=== PATIENT | female | born 1930 | race Caucasian/White ===

== ENCOUNTER 2016-07-06 11:38 | Inpatient (IN) | payer MEDICARE ==
[2016-07-06] VITALS (16 sets, daily range): BP systolic 101–136; BP diastolic 54–88; PULSE 69–90; RESP 14–20; TEMP 97.4–98; O2SAT 93–100
[~2016-07-06] VITALS: Ht 167.6 cm; Wt 39.2 kg
--- NOTE | 2016-07-06 12:07 | PD ---
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 The patient's son is at bedside and helps to provide the history. The patient has had no medical care throughout her lifetime due to her mormonism beliefs. The patient's son states that she has not walked for approximately 2 years secondary to pain in this leg. Patient denies recent history of fever, chills, nausea, vomiting, abdominal pain or dysuria. She has had Pentecostal chemical laboratory scientist nurses who clean the wound daily for approximately 2 years. No medical treatment has been provided. Patient states that she ate a full breakfast around 8:00 this morning. PFSH Past Medical History Hx Anticoagulant Therapy: No Cardiovascular Problems: No Chemotherapy: No Cerebrovascular Accident: No Diabetes: No Diminished Hearing: No Respiratory: No Tetanus Vaccination: Unknown Influenza Vaccination: No Past Surgical History Surgical History: No Previous Surgery AICD: No Hysterectomy: No Joint Replacement: No Pacemaker: No Social History Alcohol Use: No Tobacco Use: No Substance Use: No Allergies-Medications (Allergen,Severity, Reaction): Coded Allergies: No Known Allergies (Unverified , 07/06/16) Reported Meds & Prescriptions Reported Meds & Active Scripts Active No Active Prescriptions or Reported Medications Review of Systems Except as stated in HPI: all other systems reviewed are Neg Physical Exam Narrative GENERAL: Well-nourished, well-developed elderly white female in no acute distress. SKIN: Warm and dry. There is a 10 cm x 14 cm wound on the medial aspect of the right ankle with purulent drainage and obvious osteomyelitis. There is a section of tibia approximately 10 cm that is completely eroded. There is a foul smell to the wound. HEAD: Normocephalic. EYES: No scleral icterus. No injection or drainage. NECK: Supple, trachea midline. No JVD or lymphadenopathy. CARDIOVASCULAR: Regular rate and rhythm without murmurs, gallops, or rubs. 2+ DP and radial pulses bilaterally. RESPIRATORY: Breath sounds clear and equal bilaterally. No accessory muscle use. GASTROINTESTINAL: Abdomen soft, non-tender, nondistended. Active bowel sounds. MUSCULOSKELETAL: No cyanosis, or edema. FOCUSED RIGHT LOWER EXTREMITY EXAM: A 10 x 14 cm wound on the medial aspect of the right ankle. Sensation is intact to light touch distally. Cap refill less than 2 seconds. Range of motion testing deferred secondary to pain. BACK: Nontender without obvious deformity. No CVA tenderness. Data Data Last Documented VS Vital Signs Date Time Temp Pulse Resp B/P Pulse Ox O2 Delivery O2 Flow Rate FiO2 07/06/16 14:00 74 16 103/54 100 Room Air 07/06/16 11:42 97.4 Orders Complete Blood Count With Diff (07/06/16 12:21) Blood Culture (07/06/16 12:21) Wound Culture And Gram Stain (07/06/16 12:21) Iv Access Insert/Monitor (07/06/16 12:21) Ketorolac Inj (Toradol Inj) (07/06/16 12:30) Tetanus/Diphtheria Tox Adult (Tetanus/Di (07/06/16 12:30) Tibia/Fibula (Ap/Lat) (07/06/16 12:21) Lactic Acid (07/06/16 12:21) Comprehensive Metabolic Panel (07/06/16 12:21) Piperacil-Tazo 4.5 Gm Premix (Zosyn 4.5 (07/06/16 12:30) Vancomycin Inj (Vancomycin Inj) (07/06/16 12:30) Westergren Sedimentation Rate (07/06/16 12:21) C-Reactive Protein (Crp) (07/06/16 12:21) Type And Screen (07/06/16 13:32) Red Blood Cells (Rbc) (07/06/16 13:32) Blood Product Administration .UPON TRANSFUSION (07/06/16 13:32) Sodium Chlor 0.9% 250 Ml Inj (Ns 250 Ml (07/06/16 13:45) Diphenhydramine Inj (Benadryl Inj) (07/06/16 13:45) Acetaminophen (Tylenol) (07/06/16 13:45) Electrocardiogram (07/06/16 13:47) Admit Order (Ed Use Only) (07/06/16 14:35) Labs Laboratory Tests Test 07/06/16 07/06/16 07/06/16 12:30 12:35 13:45 White Blood Count 6.8 TH/MM3 Red Blood Count 2.68 MIL/MM3 Hemoglobin 5.1 GM/DL Hematocrit 16.5 % Mean Corpuscular Volume 61.3 FL Mean Corpuscular Hemoglobin 18.8 PG Mean Corpuscular Hemoglobin 30.7 % Concent Red Cell Distribution Width 17.6 % Platelet Count 500 TH/MM3 Mean Platelet Volume 6.5 FL Neutrophils (%) (Auto) 70.6 % Lymphocytes (%) (Auto) 19.6 % Monocytes (%) (Auto) 8.0 % Eosinophils (%) (Auto) 1.1 % Basophils (%) (Auto) 0.7 % Neutrophils # (Auto) 4.8 TH/MM3 Lymphocytes # (Auto) 1.3 TH/MM3 Monocytes # (Auto) 0.5 TH/MM3 Eosinophils # (Auto) 0.1 TH/MM3 Basophils # (Auto) 0.0 TH/MM3 CBC Comment AUTO DIFF Differential Comment AUTO DIFF CONFIRMED Platelet Estimate HIGH Platelet Morphology Comment NORMAL Ovalocytes 1+ Keratocytes OCC Erythrocyte Sedimentation Rate 93 mm/hr Sodium Level 137 MEQ/L Potassium Level 4.5 MEQ/L Chloride Level 106 MEQ/L Carbon Dioxide Level 22.8 MEQ/L Anion Gap 8 MEQ/L Blood Urea Nitrogen 18 MG/DL Creatinine 0.57 MG/DL Estimat Glomerular Filtration 101 ML/MIN Rate Random Glucose 86 MG/DL Calcium Level 8.8 MG/DL Total Bilirubin 0.3 MG/DL Aspartate Amino Transf 9 U/L (AST/SGOT) Alanine Aminotransferase 9 U/L (ALT/SGPT) Alkaline Phosphatase 78 U/L C-Reactive Protein 5.60 MG/DL Total Protein 5.9 GM/DL Albumin 2.1 GM/DL Lactic Acid Level 1.1 mmol/L Blood Type A POSITIVE Antibody Screen NEGATIVE Crossmatch Leukocyte-Reduced Red Blood Cells Blood Bank Comment [facility] Medical Decision Making Medical Screen Exam Complete: Yes Emergency Medical Condition: Yes Differential Diagnosis Cellulitis versus osteomyelitis versus sepsis versus other Narrative Course 85-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 The patient's son is at bedside and helps to provide the history. The patient has had no medical care throughout her lifetime due to her mormonism beliefs. The patient's son states that she has not walked for approximately 2 years secondary to pain in this leg. Patient denies recent history of fever, chills, nausea, vomiting, abdominal pain or dysuria. I discussed the need for intervention to stop the spread of this infection with the patient and her family. They are not opposed to treatment at this time. They state that they will make decisions about the patient's care as they go. Vitals reviewed. Physical exam reveals a frail elderly white female in no acute distress. The chest is clear to auscultation bilaterally. The abdomen is soft and nontender. There is a 14 cm x 10 cm open wound on the medial aspect of the right ankle. There is a 10 cm portion of the tibia that has eroded away. 2+ DP pulse. Sensation intact to light touch distally. Range of motion testing deferred secondary to pain. IV was established. Blood cultures and wound cultures were obtained and are pending at this time. IV vancomycin and Zosyn were initiated. Patient was administered a dose of Toradol and her tetanus immunization was updated. CBC: WBC 6.8. Hemoglobin 5.1. CMP is unremarkable. ESR 93. CRP 5.6. Lactic acid 1.1. X-ray: Open wound with obvious osteomyelitis. Underlying squamous cell carcinoma cannot be excluded. EKG: Rate 79, sinus rhythm. [place] interval 149 ms, QRS 92 ms, QTC 399 ms. No ischemic changes. Reviewed by Dr. Borden Patient was found to be anemic, type and cross ordered. 2 units of packed red cells are ordered and pending. Benadryl and Tylenol ordered to accompany administration of blood products. I spoke with the patient and her son regarding the plan of care. They are amenable to admission to the hospital, evaluation by the medical staff and orthopedic or general surgery consultation. Call placed to the residents, who agreed to accept this patient to the medical service and will consult the appropriate surgical provider. Please see medicine and surgery notes for disposition. 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
[2016-07-06] MEDS ORDERED: KETOROLAC TROMETHAMINE 30 MG/ML (IVP) VIAL IVP ONE (12:30)
[2016-07-06] MEDS ORDERED: VANCOMYCIN INJ 1,000 MG in SODIUM CHLOR 0.9% 250 ML INJ 250 ML IV ONE (12:30)
[2016-07-06] MEDS ORDERED: PIPERACIL-TAZO 4.5 GM PREMIX 100 ML IV ONE (12:30)
[2016-07-06] MEDS ORDERED: TETANUS/DIPHTHERIA TOXOID ADULT 0.5 ML VIAL IM ONE (12:30)
--- NOTE | 2016-07-06 12:37 | PD ---
Physical Exam Date Seen by Provider: Jul 06, 2016 Narrative Patient presents with a several year long history of a wound to the right lower extremity. 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 Therefore, she has not sought care for this until today. She is willing to undergo medical treatment at this time. The wound on her right lower extremity is at least down to the bone. It looks like a large portion of her tibia is missing. Data Data Last Documented VS Vital Signs Date Time Temp Pulse Resp B/P Pulse Ox O2 Delivery O2 Flow Rate FiO2 07/06/16 11:59 90 14 07/06/16 11:59 127/68 100 Room Air 07/06/16 11:42 97.4 Orders Complete Blood Count With Diff (07/06/16 12:21) Blood Culture (07/06/16 12:21) Wound Culture And Gram Stain (07/06/16 12:21) Iv Access Insert/Monitor (07/06/16 12:21) Ketorolac Inj (Toradol Inj) (07/06/16 12:30) Tetanus/Diphtheria Tox Adult (Tetanus/Di (07/06/16 12:30) Ankle, Limited (Ap&Lat) (07/06/16 12:21) Tibia/Fibula (Ap/Lat) (07/06/16 12:21) Lactic Acid (07/06/16 12:21) Comprehensive Metabolic Panel (07/06/16 12:21) Piperacil-Tazo 4.5 Gm Premix (Zosyn 4.5 (07/06/16 12:30) Vancomycin Inj (Vancomycin Inj) (07/06/16 12:30) Westergren Sedimentation Rate (07/06/16 12:21) C-Reactive Protein (Crp) (07/06/16 12:21) MDM Supervised Visit with JOSE CARLOS: Yes Scripts No Active Prescriptions or Reported Meds Rubina Borden MD Jul 06, 2016 12:37
[2016-07-06 13:26] LABS: AUTOMATED NEUTROPHIL # 4.8 TH/MM3 (1.8-7.7); BASOPHIL % 0.7 % (0.0-2.0); EOSINOPHIL # 0.1 TH/MM3 (0-0.4); EOSINOPHIL % 1.1 % (0.0-4.0); LYMPH % 19.6 % (9.0-44.0); LYMPHOCYTE # 1.3 TH/MM3 (1.0-4.8); MEAN CELL VOLUME 61.3 FL (80.0-100.0); MEAN CORPUSCULAR HEMOGLOBIN 18.8 PG (27.0-34.0); MEAN CORPUSCULAR HGB CONC 30.7 % (32.0-36.0); NEUT % 70.6 % (16.0-70.0); PLATELET COUNT 500 TH/MM3 (150-450); RED BLOOD COUNT 2.68 MIL/MM3 (4.00-5.30); RED CELL DISTRIBUTION WIDTH 17.6 % (11.6-17.2); WHITE BLOOD COUNT 6.8 TH/MM3 (4.0-11.0)
[2016-07-06 13:28] LABS: HEMO FLAGS AUTO DIFF
[2016-07-06 13:32] LABS: HEMATOCRIT 16.5 % (35.0-46.0)
[2016-07-06 13:34] LABS: ANION GAP 8 MEQ/L (5-15); AST (GOT) 9 U/L (15-37); BICARBONATE 22.8 MEQ/L (21.0-32.0); BLOOD UREA NITROGEN 18 MG/DL (7-18); CHLORIDE 106 MEQ/L (98-107); GLOMERULAR FILTRATION RATE 101 ML/MIN (>89); POTASSIUM 4.5 MEQ/L (3.5-5.1); SODIUM (NA) 137 MEQ/L (136-145)
[2016-07-06 13:37] LABS: ALKALINE PHOSPHATASE 78 U/L (45-117); ALT (GPT) 9 U/L (10-53); TOTAL BILIRUBIN ADULT 0.3 MG/DL (0.2-1.0)
--- NOTE | 2016-07-06 13:38 | RADRPT ---
EXAM DATE/TIME: 07/06/2016 12:50 [facility] COMPARISON: No previous studies available for comparison. INDICATIONS : Evaluate for cellulitis MEDICAL HISTORY : None. SURGICAL HISTORY : None. ENCOUNTER: Initial ACUITY: >1 year PAIN SCORE: 10/10 LOCATION: Right fibula FINDINGS: There is an open wound over the distal tibia with bony destruction and periosteal reaction all consis tent with osteomyelitis. CONCLUSION: Open wound with evidence for osteomyelitis. Underlying squamous cell carcinoma cannot be entirely ex cluded. Jose Duvall MD FACR on July 06, 2016 at 13:35 Board Certified Radiologist. This report was verified electronically.
[2016-07-06] MEDS ORDERED: diphenhydrAMINE HCL 50 MG/ML VIAL IV ONE (13:45)
[2016-07-06] MEDS ORDERED: ACETAMINOPHEN 325 MG TAB PO PRN ×2 (13:45→21:15)
[2016-07-06] MEDS ORDERED: SODIUM CHLOR 0.9% 250 ML INJ 250 ML IV ONE ×2 (13:45→16:15)
[2016-07-06 14:05] LABS: KERATOCYTES OCC (NORMAL); OVALOCYTES 1+ (NORMAL); PLATELET ESTIMATE SMEAR HIGH (NORMAL); PLATELET MORPHOLOGY NORMAL (NORMAL); SCAN/DIFF AUTO DIFF CONFIRMED
--- NOTE | 2016-07-06 14:57 | HHI.HP ---
HPI Service Family Medicine Primary Care Physician No Primary Care Physician Admission Diagnosis osteomyelitis, anemia Diagnoses: International Travel<30 Days: No Contact w/Intl Traveler<30days: No Known Affected Area: No History of Present Illness History obtained from son and patient. Patient is a 85-year-old female who presented here today for right lower extremity lesion. 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 The right lower extremity lesion has been present for the last 2-3 years and has progressively worsened during this time. The wound causes significant pain which caused patient to be wheelchair-bound for the last 1.5 years. The care provided by the Sikhism postdoctoral scientist nurses has now been exhausted and patient was recently evaluated by a home hospice nurse who recommended that patient come in to the hospital immediately. Beyond the pain, patient denies chest pain, shortness of breath, dizziness, fever/chills, abdominal pain, nausea/vomiting, hematochezia, melena. At this time, patient is open to medical therapies. (Xenia Goldberg MD R2) Review of Systems Constitutional: DENIES: Chills, Change in appetite Ears, nose, mouth, throat: DENIES: Hoarseness, Running Nose Respiratory: DENIES: Cough, Shortness of breath Cardiovascular: DENIES: Chest pain, Palpitations, Syncope, Lower Extremity Edema Gastrointestinal: DENIES: Abdominal pain, Black stools, Bloody stools, Diarrhea , Nausea, Vomiting Genitourinary: DENIES: Hematuria, Dysuria (Xenia Goldberg MD R2) Past Family Social History Past Medical History None as patient did not seek medical care through conventional services. Past Surgical History ORIF of right wrist Reported Medications None (Xenia Goldberg MD R2) Allergies: Coded Allergies: No Known Allergies (Unverified , 07/06/16) Family History 1 sister with a history of Alzheimer's dementia and possible facial osteomyelitis History is otherwise unknown Social History Lives with and Sikhism postdoctoral scientist nurse that come by to provide social care. Smoking: None Alcohol: None Illicit: None (Xenia Goldberg MD R2) Physical Exam Vital Signs Vital Signs Date Time Temp Pulse Resp B/P Pulse Ox O2 Delivery O2 Flow Rate FiO2 07/06/16 14:00 74 16 103/54 100 Room Air 07/06/16 13:00 78 16 114/58 99 Room Air 07/06/16 11:59 90 14 07/06/16 11:59 90 14 127/68 100 Room Air 07/06/16 11:42 97.4 90 16 120/62 99 Room Air Physical Exam GENERAL: This is a thin-nourished, well-developed patient, in no apparent distress. EYES: Pupils equal round and reactive. Extraocular motions intact. No scleral icterus. No injection or drainage. ENT: Nose without bleeding, purulent drainage. Throat without erythema, tonsillar hypertrophy or exudate. Uvula midline. Airway patent. NECK: Trachea midline. Supple, nontender, no meningeal signs. CARDIOVASCULAR: Regular rate and rhythm without murmurs, gallops, or rubs. RESPIRATORY: Clear to auscultation. Breath sounds equal bilaterally. No wheezes , rales, or rhonchi. GASTROINTESTINAL: Abdomen soft, non-tender, nondistended. No hepato-splenomegaly , or palpable masses. No guarding. MUSCULOSKELETAL: * Right tibia with extensive purulent and greenish drainage, foul odor, erythematous border. 2+ pitting edema on foot. 14 cm x 10 cm open wound. NEUROLOGICAL: Awake and alert. Normal speech. Laboratory Laboratory Tests Test 07/06/16 07/06/16 07/06/16 12:30 12:35 13:45 White Blood Count 6.8 Red Blood Count 2.68 Hemoglobin 5.1 Hematocrit 16.5 Mean Corpuscular Volume 61.3 Mean Corpuscular Hemoglobin 18.8 Mean Corpuscular Hemoglobin 30.7 Concent Red Cell Distribution Width 17.6 Platelet Count 500 Mean Platelet Volume 6.5 Neutrophils (%) (Auto) 70.6 Lymphocytes (%) (Auto) 19.6 Monocytes (%) (Auto) 8.0 Eosinophils (%) (Auto) 1.1 Basophils (%) (Auto) 0.7 Neutrophils # (Auto) 4.8 Lymphocytes # (Auto) 1.3 Monocytes # (Auto) 0.5 Eosinophils # (Auto) 0.1 Basophils # (Auto) 0.0 CBC Comment AUTO DIFF Differential Comment AUTO DIFF CONFIRMED Platelet Estimate HIGH Platelet Morphology Comment NORMAL Ovalocytes 1+ Keratocytes OCC Erythrocyte Sedimentation Rate 93 Sodium Level 137 Potassium Level 4.5 Chloride Level 106 Carbon Dioxide Level 22.8 Anion Gap 8 Blood Urea Nitrogen 18 Creatinine 0.57 Estimat Glomerular Filtration 101 Rate Random Glucose 86 Calcium Level 8.8 Total Bilirubin 0.3 Aspartate Amino Transf 9 (AST/SGOT) Alanine Aminotransferase 9 (ALT/SGPT) Alkaline Phosphatase 78 C-Reactive Protein 5.60 Total Protein 5.9 Albumin 2.1 Lactic Acid Level 1.1 Blood Type A POSITIVE Antibody Screen NEGATIVE Crossmatch Leukocyte-Reduced Red Blood Cells Blood Bank Comment Date/Time Procedure Status Source Growth 07/06/16 12:35 Aerobic Blood Culture Received Blood Peripheral Pending 07/06/16 12:35 Anaerobic Blood Culture Received Blood Peripheral Pending 07/06/16 12:30 Gram Stain Received Wound Ankle Pending 07/06/16 12:30 Wound Culture Received Wound Ankle Pending (Xenia Goldberg MD R2) Result Diagram: 07/06/16 1230 07/06/16 1230 Imaging Last Impressions Tibia/Fibula X-Ray 07/06/16 1221 Signed Impressions: Service Date/Time: Wednesday, July 06, 2016 12:50 - CONCLUSION: Open wound with evidence for osteomyelitis. Underlying squamous cell carcinoma cannot be entirely excluded. Jose Duvall MD FACR (Xenia Goldberg MD R2) Assessment and Plan Assessment and Plan 85-year-old female admitted for right tibial osteomyelitis. Code Status DNR Discussed Condition With Dr. Klein and Dr. Warren (Xenia Goldberg MD R2) Attending Attestation The patient has been seen and examined. The chart and all resident notes have been reviewed. I agree that inpatient care is appropriate and that a two midnight stay is expected for the reasons documented in the resident history and physical. I have discussed this with the resident and certify the resident s order for inpatient admission. (Rubina Klein MD) Problem List: (1) Osteomyelitis of right tibia Status: Chronic Plan: Progressively worsening osteomyelitis over the right distal tibia leading to inability to ambulate for the last 1.5 years. Prior treatment has not been seeking due to roman catholic beliefs. (The medical therapies at this time. Physical exam is remarkable for extensive glucoses of surrounding tissue and bone with purulent discharge/drainage. No leukocytosis present. ESR is elevated at 94 -X-ray tibia/fibula: significant for osteomyelitis and possible underlying squamous cell carcinoma. * Evidence of squamous cell carcinoma is not surprising due to the long history of chronic inflammation and infection * Will discuss further treatment after surgical treatment by ortho -Wound and blood culture pending -Leg MRI ordered -No signs of sepsis or bacteremia present -Blood cultures pending Ortho consulted: Appreciate recommendations Medications: * Vancomycin (07/06- * Zosyn 3.375 q6 (07/06- * Tylenol and [place] for pain (will use extreme caution with medications as she has no tolerance) (2) Anemia Status: Acute Plan: Found to have anemia with an H&H of 5.1/16.5 on admission. No history of melena/hematochezia. Etiology may be due to chronic osteomyelitis of right tibia. However etiology may be due to GI versus chronic infection. -Transfuse 2 units * Post transfusion H&H ordered -Iron studies significant for low iron, TIBC, % saturation. Additionally ferritin is low at 28 -Hemoccult ordered -Monitor I&Os Medications: * Iron 325 BID (after Hemoccult has been obtained) * Vitamin C 500 mg daily * Try to avoid NSAIDs until Hemoccult results (3) Nutrition, metabolism, and development symptoms Status: Acute Plan: Diet: Regular, nothing by mouth after midnight Electrolytes: Unremarkable Fluids: NS at 42 DVT prophylaxis: SCDs due to possible upcoming surgery GI prophylaxis: Not indicated (Xenia Goldberg MD R2) Physician Certification 2 Midnight Certification Type: Admission for Inpatient Services Order for Inpatient Services The services are ordered in accordance with Medicare regulations or non- Medicare payer requirements, as applicable. In the case of services not specified as inpatient-only, they are appropriately provided as inpatient services in accordance with the 2-midnight benchmark. Estimated LOS (days): 3 days is the estimated time the patient will need to remain in the hospital, assuming treatment plan goals are met and no additional complications. 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
[2016-07-06] MEDS ORDERED: ONDANSETRON HCL 4 MG/2 ML VIAL IVP PRN (16:00)
[2016-07-06] MEDS ORDERED: SODIUM CHLORIDE 0.9% FLUSH 5 ML FLUSH FLUSH PRN (16:00)
[2016-07-06] MEDS ORDERED: NALOXONE HCL 0.4 MG/ML AMP IV PRN ×2 (16:00→21:15)
[2016-07-06] MEDS ORDERED: FUROSEMIDE 20 MG/2 ML VIAL IV ONE (16:15)
[2016-07-06] MEDS ORDERED: Vancomycin Consult Pharmacy 1 EA OTHER SCH (16:30)
--- NOTE | 2016-07-06 17:21 | HHI.FPPN ---
Subjective Subjective Patient seen and examined. Case reviewed and discussed. Please refer to resident H&P for further details regarding history of present illness, ROS, past medical and surgical history, family and social history. 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 The patient's son reports that the patient has been having gait instability for several years since developing the lesion, and has been wheelchair bound for approximately one year. The patient has been living at home with the care of a Latter Day science anglican nurse. She presented today and is willing to undergo medical care as directed. She complains of right lower extremity pain and is hungry. [facility] Objective Objective Last Impressions Tibia/Fibula X-Ray 07/06/16 1221 Signed Impressions: Service Date/Time: Wednesday, July 06, 2016 12:50 - CONCLUSION: Open wound with evidence for osteomyelitis. Underlying squamous cell carcinoma cannot be entirely excluded. Jose Duvall MD FACR Laboratory Tests - Abnormals Test 07/06/16 12:30 Red Blood Count 2.68 MIL/MM3 Hemoglobin 5.1 GM/DL Hematocrit 16.5 % Mean Corpuscular Volume 61.3 FL Mean Corpuscular Hemoglobin 18.8 PG Mean Corpuscular Hemoglobin 30.7 % Concent Red Cell Distribution Width 17.6 % Platelet Count 500 TH/MM3 Mean Platelet Volume 6.5 FL Neutrophils (%) (Auto) 70.6 % Platelet Estimate HIGH Ovalocytes 1+ Keratocytes OCC Erythrocyte Sedimentation Rate 93 mm/hr Aspartate Amino Transf 9 U/L (AST/SGOT) Alanine Aminotransferase 9 U/L (ALT/SGPT) C-Reactive Protein 5.60 MG/DL Total Protein 5.9 GM/DL Albumin 2.1 GM/DL Vital Signs 07/06/16 07/06/16 07/06/16 07/06/16 11:42 11:59 11:59 13:00 Temp 97.4 Pulse 90 90 90 78 Resp 16 14 14 16 B/P 120/62 127/68 114/58 Pulse Ox 99 100 99 O2 Delivery Room Air Room Air Room Air 07/06/16 07/06/16 07/06/16 07/06/16 13:30 14:00 15:00 16:00 Pulse 74 72 72 Resp 16 16 14 16 B/P 103/54 108/56 103/54 Pulse Ox 100 97 98 O2 Delivery Room Air Room Air Room Air 07/06/16 07/06/16 07/06/16 16:30 16:35 16:45 Temp 97.8 98.0 Pulse 72 69 69 Resp 14 16 16 B/P 113/57 105/57 112/62 Pulse Ox 98 98 98 O2 Delivery Room Air Room Air Room Air Physical exam GENERAL: Thin, pale-appearing elderly female resting in bed. SKIN: Warm and cool. Pallor HEAD: Normocephalic. Atraumatic EYES: No scleral icterus. No injection or drainage. + conjunctival pallor NECK: Supple, trachea midline. No JVD or lymphadenopathy. CARDIOVASCULAR: Regular rate and rhythm without audible murmurs, gallops, or rubs. RESPIRATORY: Breath sounds equal and clear to auscultation bilaterally. No accessory muscle use. GASTROINTESTINAL: Abdomen soft, thin, non-tender, nondistended. MUSCULOSKELETAL: No cyanosis. Right lower extremity with malodorous, extensive deep, purulent wound involving a large component of the lower leg. There is obvious bone visible and loss of tissue. There is 1+/2+ edema of the foot distal to the wound. BACK: Nontender without obvious deformity. No CVA tenderness. Neuro: Awake and alert. Normal speech. Cranial nerves grossly intact. Assessment Assessment 85-year-old female admitted with: Osteomyelitis of the right distal tibia Severe anemia, suspect acute/chronic blood loss Thrombocytosis Wheelchair-bound PLAN PLAN Empiric antibiotic therapy Wound culture MRI Orthopedic consultation Blood cultures Transfuse 2 units of packed RBCs Posttransfusion H&H Hemoccult, though may be due to blood loss from wound Monitor for active bleeding Chemical prophylaxis for DVT contraindicated due to severe anemia and impending surgery Patient seen and examined. Case reviewed and discussed. Agree with plan of care as discussed with me and documented in the resident note. Rubina Klein MD Jul 06, 2016 17:21
[2016-07-06] MEDS: PIPERACIL-TAZO 3.375 GM PREMIX 50 ML IV SCH (18:00)
[2016-07-06 18:48] LABS: FERRITIN 28 NG/ML (8-252); TRANSFERRIN IRON PROFILE 141 MG/DL (200-360)
[2016-07-06] MEDS: SODIUM CHLORIDE 0.9% FLUSH 5 ML FLUSH FLUSH SCH (20:50)
[2016-07-06] MEDS ORDERED: DOCUSATE SODIUM 50 MG/SENNA 8.6 MG TAB PO PRN (21:15)
--- NOTE | 2016-07-06 21:31 | EKG ---
Date Performed: 07/06/2016 Time Performed: 14:37:57 PTAGE: 85 years EKG: Sinus rhythm NORMAL ECG PREVIOUS TRACING : 07/09/2015 07.24 Compared to previous tracing, sinus rhythm has replaced ect opic atrial rhythm, PVCs are no longer present. DOCTOR: Lg Escalante Interpretating Date/Time 07/06/2016 21:30:21
[2016-07-06] MEDS: ACETAMINOPHEN/HYDROcodone 325 MG/5 MG TAB PO PRN (22:45)
[2016-07-06] MEDS: SODIUM CHLOR 0.9% 1000 ML INJ 1,000 ML IV SCH (23:45)
[2016-07-07] VITALS (7 sets, daily range): BP systolic 110–149; BP diastolic 61–68; PULSE 62–93; RESP 14–18; TEMP 95.4–98.8; O2SAT 97–100
[2016-07-07] MEDS ORDERED: VANCOMYCIN INJ 650 MG in SODIUM CHLOR 0.9% 250 ML INJ 250 ML IV SCH ×2
[2016-07-07] MEDS: PIPERACIL-TAZO 3.375 GM PREMIX 50 ML IV SCH ×4 (05:53→18:48)
--- NOTE | 2016-07-07 06:59 | PD.ORT.PN ---
Subjective Subjective Remarks Raeann is a 85-year-old female who has had a right leg infection for several years. She states that she has not had medical treatment for this. She currently has a large infected lesion on the right leg. She has not been able to ambulate for several months. She is not a great historian and is unable to give specific dates or length of time. Objective Vitals Vital Signs Date Time Temp Pulse Resp B/P Pulse Ox O2 Delivery O2 Flow Rate FiO2 07/07/16 04:00 98.8 71 16 114/61 97 07/07/16 00:56 18 07/07/16 00:00 97.8 82 18 114/66 98 07/06/16 21:30 97.5 82 20 136/63 99 07/06/16 19:53 98 07/06/16 18:45 70 14 102/56 98 Room Air 07/06/16 18:40 70 16 101/55 94 Room Air 07/06/16 18:30 97.6 72 16 116/56 93 Room Air 07/06/16 18:00 73 20 108/88 94 Room Air 07/06/16 17:00 76 16 108/60 98 Room Air 07/06/16 16:45 69 16 112/62 98 Room Air 07/06/16 16:35 98.0 69 16 105/57 98 Room Air 07/06/16 16:30 97.8 72 14 113/57 98 Room Air 07/06/16 16:00 72 16 103/54 98 Room Air 07/06/16 15:00 72 14 108/56 97 Room Air 07/06/16 14:00 74 16 103/54 100 Room Air 07/06/16 13:30 16 07/06/16 13:00 78 16 114/58 99 Room Air 07/06/16 11:59 90 14 07/06/16 11:59 90 14 127/68 100 Room Air 07/06/16 11:42 97.4 90 16 120/62 99 Room Air Result Diagram: 07/06/16 1230 07/06/16 1230 Imaging Last 24 hours Impressions Tibia/Fibula X-Ray 07/06/16 1221 Signed Impressions: Service Date/Time: Wednesday, July 06, 2016 12:50 - CONCLUSION: Open wound with evidence for osteomyelitis. Underlying squamous cell carcinoma cannot be entirely excluded. Jose Duvall MD FACR Objective Remarks Raeann is an 85-year-old female who is awake and alert. Examination of right leg reveals no tenderness around her hip or knee. Examination of her right calf reveals a large open wound approximately 7" x 4". Wound is grossly infected with purulent drainage and foul odor. There is a large defect of the tibia and fibula. Her foot is warm and well perfused. Assessment & Plan Assessment and Plan I discussed treatment options with Raeann. At this point her best option would be an amputation. She may be a candidate for below-knee amputation. If she has significant infection going up the tibia she may need an above-knee amputation. Without an amputation I do not see any possible way of eradicating this infection. She would like to discuss this further with her . I will tentatively plan on surgery tomorrow. All questions were answered. Kofi Ballard MD Jul 07, 2016 06:58
[2016-07-07 07:37] LABS: BASOPHIL # 0.1 TH/MM3 (0-0.2); BASOPHIL % 1.4 % (0.0-2.0); EOSINOPHIL # 0.2 TH/MM3 (0-0.4); EOSINOPHIL % 2.7 % (0.0-4.0); HEMATOCRIT 26.6 % (35.0-46.0); LYMPH % 23.9 % (9.0-44.0); LYMPHOCYTE # 1.5 TH/MM3 (1.0-4.8); MEAN CELL VOLUME 69.1 FL (80.0-100.0); MEAN CORPUSCULAR HEMOGLOBIN 22.1 PG (27.0-34.0); MEAN CORPUSCULAR HGB CONC 31.9 % (32.0-36.0); MONO % 8.2 % (0.0-8.0); NEUT % 63.8 % (16.0-70.0); PLATELET COUNT 542 TH/MM3 (150-450); RED BLOOD COUNT 3.85 MIL/MM3 (4.00-5.30); RED CELL DISTRIBUTION WIDTH 26.4 % (11.6-17.2); WHITE BLOOD COUNT 6.2 TH/MM3 (4.0-11.0)
[2016-07-07 07:42] LABS: PROTHROMBIN TIME - PATIENT 11.1 SEC (9.8-11.6)
[2016-07-07 07:45] LABS: HEMO FLAGS AUTO DIFF
[2016-07-07 08:00] LABS: BICARBONATE 24.2 MEQ/L (21.0-32.0); POTASSIUM 3.9 MEQ/L (3.5-5.1)
[2016-07-07] MEDS: FERROUS SULFATE 325 MG (65 MG ELEMENTAL IRON) TAB PO SCH ×2 (08:38→22:27)
[2016-07-07] MEDS: ASCORBIC ACID 500 MG TAB PO SCH (08:38)
[2016-07-07] MEDS: SODIUM CHLORIDE 0.9% FLUSH 5 ML FLUSH FLUSH SCH ×2 (09:00→21:00)
[2016-07-07 09:19] LABS: SCAN/DIFF AUTO DIFF CONFIRMED
[2016-07-07 09:20] LABS: ACANTHOCYTES OCC (NORMAL); KERATOCYTES OCC (NORMAL)
--- NOTE | 2016-07-07 09:40 | HHI.FPPN ---
Subjective Remarks Patient seen and examined this am. No overnight events. Afebrile, vitals are stable. Tolerating diet. Her son is at bedside. Pain is well controlled. Denies CP,SOB, or difficulty breathing. (Airam Hong MD R3) Objective Vitals Vital Signs Date Time Temp Pulse Resp B/P Pulse Ox O2 Delivery O2 Flow Rate FiO2 07/07/16 08:00 95.4 93 16 149/68 100 07/07/16 04:00 98.8 71 16 114/61 97 07/07/16 00:56 18 07/07/16 00:00 97.8 82 18 114/66 98 07/06/16 21:30 97.5 82 20 136/63 99 07/06/16 19:53 98 07/06/16 18:45 70 14 102/56 98 Room Air 07/06/16 18:40 70 16 101/55 94 Room Air 07/06/16 18:30 97.6 72 16 116/56 93 Room Air 07/06/16 18:00 73 20 108/88 94 Room Air 07/06/16 17:00 76 16 108/60 98 Room Air 07/06/16 16:45 69 16 112/62 98 Room Air 07/06/16 16:35 98.0 69 16 105/57 98 Room Air 07/06/16 16:30 97.8 72 14 113/57 98 Room Air 07/06/16 16:00 72 16 103/54 98 Room Air 07/06/16 15:00 72 14 108/56 97 Room Air 07/06/16 14:00 74 16 103/54 100 Room Air 07/06/16 13:30 16 07/06/16 13:00 78 16 114/58 99 Room Air 07/06/16 11:59 90 14 07/06/16 11:59 90 14 127/68 100 Room Air 07/06/16 11:42 97.4 90 16 120/62 99 Room Air (Airam Hong MD R3) Result Diagram: 07/07/16 0712 07/07/16 0712 Imaging Last Impressions Tibia/Fibula X-Ray 07/06/16 1221 Signed Impressions: Service Date/Time: Wednesday, July 06, 2016 12:50 - CONCLUSION: Open wound with evidence for osteomyelitis. Underlying squamous cell carcinoma cannot be entirely excluded. Jose Duvall MD FACR Objective Remarks GENERAL: This is a thin-nourished, well-developed patient, in no apparent distress, eating breakfast EYES: Pupils equal round and reactive. Extraocular motions intact. No scleral icterus. No injection or drainage. ENT: Nose without bleeding, purulent drainage. Throat without erythema, tonsillar hypertrophy or exudate. Uvula midline. Airway patent. NECK: Trachea midline. Supple, nontender, no meningeal signs. CARDIOVASCULAR: Regular rate and rhythm without murmurs, gallops, or rubs. RESPIRATORY: Clear to auscultation. Breath sounds equal bilaterally. No wheezes , rales, or rhonchi. GASTROINTESTINAL: Abdomen soft, non-tender, nondistended. No hepato-splenomegaly , or palpable masses. No guarding. MUSCULOSKELETAL: * Right tibia with extensive purulent and greenish drainage, foul odor, erythematous border. 2+ pitting edema on foot. 14 cm x 10 cm open wound, bone is visible. NEUROLOGICAL: Awake and alert. Normal speech. (Airam Hong MD R3) A/P Assessment and Plan 85-year-old female admitted for right tibial osteomyelitis. Discharge Planning D/C pending ortho plan. Likely several days, will likely need rehab after. ( Airam Hong MD R3) Attending Attestation Patient seen and examined with the resident team. Case reviewed and discussed Agree with plan of care as discussed with me and documented in the resident note. 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 * Evidence of squamous cell carcinoma is not surprising due to the long history of chronic inflammation and infection * Acute and chronic markers of inflammation are elevated. * Will discuss further treatment after surgical treatment by ortho * Sample to be sent to path to r/u squamous cell carcinoma -Wound and blood culture pending -Leg MRI ordered -Blood cultures pending Ortho consulted: surgical intervention is needed, below vs above the knee amputation. Tenatively scheduled for tomorrow. Medications: * Vancomycin (07/06- * Zosyn 3.375 q6 (07/06- * Tylenol and [place] for pain (will use extreme caution with medications as she has no tolerance) (2) Anemia Status: Acute Plan: H&H of 5.1/16.5 on admission. No history of melena/hematochezia. Etiology likely due to bleeding from wound. -Transfuse 2 units * Post transfusion H&H improved 8.5/26.6 -Iron studies significant for low iron, TIBC, % saturation. Additionally ferritin is low at 28 -Hemoccult pending Medications: * Iron 325 BID (after Hemoccult has been obtained) * Vitamin C 500 mg daily * Try to avoid NSAIDs until Hemoccult results (3) Nutrition, metabolism, and development symptoms Status: Acute Plan: Diet: Regular, nothing by mouth after midnight Electrolytes: Unremarkable Fluids: NS at 42 DVT prophylaxis: SCDs due to possible upcoming surgery GI prophylaxis: Not indicated (Airam Hong MD R3) Problem Qualifiers (1) Anemia: Qualified Code: D50.0 - Iron deficiency anemia due to chronic blood loss Airam Hong MD R3 Jul 07, 2016 09:40 Rubina Klein MD Jul 07, 2016 14:03
[2016-07-07] MEDS ORDERED: GADODIAMIDE PF 287 MG/ML 10 ML VIAL (for RAD MRI) IV ONE (11:02)
--- NOTE | 2016-07-07 12:19 | MB ---
cc: DANY ALEJANDRE DATE OF CONSULTATION: 07/07/2016 REASON FOR CONSULTATION Right leg infection. CONSULTING PHYSICIAN Dr. Rubina Klein. HISTORY OF PRESENT ILLNESS Mrs. Sahu is an 85-year-old female who presented to the emergency room with a right leg wound. She has had a wound for somewhere 2-3 years. It has been progressively worsening. She has not been able to ambulate for the past year and a half. She is a [employer]. She has been undergoing treatment by home nurses. She is currently being evaluated by home hospice. The patient has noted purulence and foul odor from the wound for the last few years. She is currently awake and alert on the fifth floor. Her only complaint is her right leg. She denies any specific injury to the leg. She states that it started off as a small wound and has increasingly gotten larger. PAST MEDICAL HISTORY ILLNESSES None. SURGERIES ORIF right wrist. MEDICATIONS None. ALLERGIES None. FAMILY HISTORY Family history is positive for Alzheimer's disease in her sister. SOCIAL HISTORY The patient lives with her . She denies alcohol, tobacco or drug use. She is a [employer]. REVIEW OF SYSTEMS The patient denies headache, visual changes, neck pain, chest pain, shortness of breath, abdominal pain, nausea, vomiting or recent weight loss. She complains of right leg wound with drainage for several years. PHYSICAL EXAMINATION GENERAL: The patient is a pleasant 85-year female who is awake and alert. She is alert and oriented x3. VITAL SIGNS: Temperature 95.4, pulse 93, respirations 16, blood pressure 149/68, O2 sats 100% on room air. HEAD: The patient is normocephalic. Pupils are equal. NECK: Soft, nontender. Trachea is midline. ABDOMEN: Soft, nontender, nondistended. EXTREMITIES: Examination of bilateral upper extremities reveals no obvious pain or deformity with shoulder, elbow or wrist motion. She has intact sensation in all fingers. She had good cap refill in all fingers. Skin is intact. Radial arteries were palpable. Examination of left leg reveals no pain with hip, knee or ankle motion. Skin is intact. Dorsalis pedis pulses palpable. Sensation is grossly intact. Examination of right leg reveals no pain around her hip or knee. Examination of her leg reveals a large 7 inch open wound over the lower calf. There is foul smelling purulent drainage present. There is large erosions of the tibia and fibula present. There is areas of wound necrosis. X-RAYS X-rays of right leg were reviewed. The patient has a large defect of the tibia and fibula, consistent with chronic osteomyelitis or possible tumor. IMPRESSION 1. Left leg open chronic wound, likely secondary to chronic osteomyelitis. PLAN Treatment options were discussed with the patient. At this point the patient has a grossly infected right leg wound. The treatment options were discussed with the patient. At this point I would recommend an amputation. The patient would likely need to go to an above-knee amputation. The tibia is likely infected to a level that would not allow for below-knee amputation. Risks of surgery include bleeding, infection, injuries to arteries, nerves and blood vessels, wound complications, wound infection as well as medical complications including blood clot, stroke, heart attack and . The patient would like to discuss this further with her family before making a decision. All questions were answered. A mid-level provider in my office (nurse practitioner or physician [employer] assistant manager) may see this patient on follow-up visits and continue to implement the objectives of this plan including: Starting or adjusting medications, injections , cast application, orthotics, brace application, physical therapy, radiological studies (including x-ray, MRI, CT, ultrasound, bone scan), vascular studies, neurologic studies, specialist consultation, and proceeding with surgical management, as appropriate. MD ROMEL Choudhury/JOSE MARIA /11:05 AM /12:03 PM MARGARITA
--- NOTE | 2016-07-07 12:45 | RADRPT ---
EXAM DATE/TIME: 07/07/2016 10:26 [facility] COMPARISON: No previous studies available for comparison. INDICATIONS : Right mid tibia wound from non treatment if skin cancer. CONTRAST: 8 cc Omniscan (gadodiamide) IV MEDICAL HISTORY : Carcinoma, squamous cell. SURGICAL HISTORY : None. ENCOUNTER: Subsequent ACUITY: 1 year PAIN SCORE: 3/10 LOCATION: Right lower leg TECHNIQUE: Multiplanar multisequence MRI examination of the lower leg was performed with and without contrast. FINDINGS: BONE/CARTILAGE: There is a large soft tissue defect in the anterior tibial with complete destruction of the mid shaft of the tibia. Markedly abnormal soft tissue is present that showing significant enhancement. The m arrow is abnormal in the tibia to within 12 cm of the tibial plateau. There is abnormal marrow in th e fibula almost to the fibular head. CONCLUSION: 1. Markedly abnormal MRI with large tissue defect and abnormal marrow as described above. 1. Jose Duvall MD FACR on July 07, 2016 at 12:40 Board Certified Radiologist. This report was verified electronically.
[2016-07-07] MEDS ORDERED: LACTATED RINGER'S 1000 ML IV SCH (16:45)
[2016-07-07] MEDS ORDERED: SODIUM CHLORID 0.9% 500 ML IV SCH (16:45)
[2016-07-07] MEDS ORDERED: INSULIN HUMAN REGULAR 1,000 UNITS/10 ML VIAL SQ PRN (16:45)
[2016-07-07] MEDS ORDERED: METOPROLOL TARTRATE 25 MG TAB PO PRN (16:45)
[2016-07-07 17:32] LABS: HEMATOCRIT 24.9 % (35.0-46.0)
[2016-07-07 17:36] LABS: REVIEW FLAG FINAL
[2016-07-07] MEDS: ACETAMINOPHEN/HYDROcodone 325 MG/5 MG TAB PO PRN (22:27)
[2016-07-07] MEDS: VANCOMYCIN INJ 700 MG in SODIUM CHLOR 0.9% 250 ML INJ 250 ML IV SCH (22:27)
[2016-07-07] MEDS: SODIUM CHLOR 0.9% 1000 ML INJ 1,000 ML IV SCH (22:37)
[2016-07-08] VITALS: BP 130/76; PULSE 71; RESP 20; TEMP 97.6; O2SAT 96
[2016-07-08] MEDS: PIPERACIL-TAZO 3.375 GM PREMIX 50 ML IV SCH ×3 (02:00→13:22)
[2016-07-08 04:00] VITALS: BP 127/81; PULSE 61; RESP 18; TEMP 97; O2SAT 95
--- NOTE | 2016-07-08 07:06 | PD.ORT.PN ---
Subjective Subjective Remarks s/p chronic right leg infection. doing well. pain controlled. resting comfortably. patient has thought about it and would like to proceed with amputation Objective Vitals Vital Signs Date Time Temp Pulse Resp B/P Pulse Ox O2 Delivery O2 Flow Rate FiO2 07/08/16 04:00 97.0 61 18 127/81 95 07/08/16 00:00 97.6 71 20 130/76 96 07/07/16 20:00 96.3 77 18 123/61 98 07/07/16 16:05 96.9 74 18 110/63 100 07/07/16 12:00 96.1 75 16 120/62 100 07/07/16 11:00 62 07/07/16 08:00 95.4 93 16 149/68 100 I/O 07/07/16 07/07/16 07/07/16 07/08/16 07/08/16 07/08/16 07:00 15:00 23:00 07:00 15:00 23:00 Intake Total 600 ml Balance 600 ml Intake Oral 600 ml # Voids 1 3 8 # Bowel Movements 0 1 Result Diagram: 07/07/16 1700 07/07/16 0712 Other Results Laboratory Tests Test 07/07/16 07:12 Prothrombin Time 11.1 SEC (9.8-11.6) Prothromb Time International 1.0 RATIO Ratio Imaging Last 24 hours Impressions Tibia/Fibula X-Ray 07/06/16 1221 Signed Impressions: Service Date/Time: Wednesday, July 06, 2016 12:50 - CONCLUSION: Open wound with evidence for osteomyelitis. Underlying squamous cell carcinoma cannot be entirely excluded. Jose Duvall MD FACR Objective Remarks RLE: dressing clean and dry., intact Assessment & Plan Assessment and Plan 1) Right Leg Open wound and infection -keep npo -plan for surgery today for amputation of right leg. Сергей Rose Jul 08, 2016 07:06
[2016-07-08 08:00] VITALS: BP 155/71; PULSE 76; RESP 20; TEMP 95.2; O2SAT 98
[2016-07-08] MEDS: FERROUS SULFATE 325 MG (65 MG ELEMENTAL IRON) TAB PO SCH ×2 (09:00→20:27)
[2016-07-08] MEDS: SODIUM CHLORIDE 0.9% FLUSH 5 ML FLUSH FLUSH SCH ×2 (09:00→22:43)
[2016-07-08 09:42] LABS: AUTOMATED NEUTROPHIL # 4.1 TH/MM3 (1.8-7.7); BASOPHIL # 0.1 TH/MM3 (0-0.2); BASOPHIL % 1.4 % (0.0-2.0); EOSINOPHIL # 0.1 TH/MM3 (0-0.4); EOSINOPHIL % 2.1 % (0.0-4.0); HEMATOCRIT 28.5 % (35.0-46.0); LYMPH % 20.5 % (9.0-44.0); LYMPHOCYTE # 1.2 TH/MM3 (1.0-4.8); MEAN CELL VOLUME 70.6 FL (80.0-100.0); MEAN CORPUSCULAR HEMOGLOBIN 21.4 PG (27.0-34.0); MEAN CORPUSCULAR HGB CONC 30.4 % (32.0-36.0); MONO % 6.3 % (0.0-8.0); NEUT % 69.7 % (16.0-70.0); PLATELET COUNT 548 TH/MM3 (150-450); RED BLOOD COUNT 4.04 MIL/MM3 (4.00-5.30); WHITE BLOOD COUNT 5.9 TH/MM3 (4.0-11.0)
[2016-07-08] MEDS: ASCORBIC ACID 500 MG TAB PO SCH (09:46)
[2016-07-08 09:47] LABS: HEMO FLAGS AUTO DIFF
[2016-07-08 10:17] LABS: BICARBONATE 23.4 MEQ/L (21.0-32.0); POTASSIUM 3.8 MEQ/L (3.5-5.1)
[2016-07-08 10:18] LABS: PLATELET ESTIMATE SMEAR HIGH (NORMAL); PLATELET MORPHOLOGY NORMAL (NORMAL); SCAN/DIFF AUTO DIFF CONFIRMED
[2016-07-08 10:19] LABS: ACANTHOCYTES 1+ (NORMAL); KERATOCYTES 1+ (NORMAL)
[2016-07-08] MEDS ORDERED: LACTATED RINGER'S 1000 ML INJ 1,000 ML IV ONE (10:39)
[2016-07-08] MEDS ORDERED: PHENYLEPH/NS 1000 MCG/10 ML SYR IV ONE (10:39)
[2016-07-08] MEDS ORDERED: ONDANSETRON HCL 4 MG/2 ML VIAL IV PUSH ONE (10:39)
[2016-07-08] MEDS ORDERED: PROPOFOL 200 MG/20 ML AMP IV ONE (10:39)
[2016-07-08] MEDS ORDERED: ePHEDrine/NS 50 MG/5 ML SYR IV ONE (10:39)
--- NOTE | 2016-07-08 11:50 | HHI.FPPN ---
Subjective Remarks Overnight team was paged about patient acting delirious, soft restraints were placed. This morning patient was alert and oriented, acting normally. She had no complaints or concerns. Denied pain anywhere, no chest pain, shortness of breath. Afebrile, vitals have been within normal limits. (Kwabena Warren MD R1) Objective Vitals Vital Signs Date Time Temp Pulse Resp B/P Pulse Ox O2 Delivery O2 Flow Rate FiO2 07/08/16 08:00 95.2 76 20 155/71 98 07/08/16 04:00 97.0 61 18 127/81 95 07/08/16 00:00 97.6 71 20 130/76 96 07/07/16 20:00 96.3 77 18 123/61 98 07/07/16 16:05 96.9 74 18 110/63 100 07/07/16 12:00 96.1 75 16 120/62 100 I/O 07/07/16 07/07/16 07/07/16 07/08/16 07/08/16 07/08/16 07:00 15:00 23:00 07:00 15:00 23:00 Intake Total 600 ml Balance 600 ml Intake Oral 600 ml # Voids 1 3 8 # Bowel Movements 0 2 (Kwabena Warren MD R1) Result Diagram: 07/08/1674707/08/16 0748 Objective Remarks GENERAL: This is a thin-nourished, well-developed patient, in no apparent distress EYES: Extraocular motions intact. No scleral icterus. No injection or drainage. ENT: Nose without bleeding, purulent drainage. Throat without erythema, tonsillar hypertrophy or exudate. Airway patent. NECK: Supple, nontender, no meningeal signs. CARDIOVASCULAR: Regular rate and rhythm without murmurs, gallops, or rubs. RESPIRATORY: Clear to auscultation. Breath sounds equal bilaterally. No wheezes , rales, or rhonchi. GASTROINTESTINAL: Abdomen soft, non-tender, nondistended. MUSCULOSKELETAL: Right tibia with extensive purulent and greenish drainage, foul odor, erythematous border. 2+ pitting edema on foot. 14 cm x 10 cm open wound, bone is visible. NEUROLOGICAL: Awake and alert. Normal speech. 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 (Kwabena Warren MD R1) A/P Assessment and Plan 85-year-old female admitted for right tibial osteomyelitis. Discharge Planning D/C pending ortho plan. Likely several days, will likely need rehab after. ( Kwabena Warren MD R1) Attending Attestation Patient seen and examined. Case reviewed and discussed Agree with plan of care as discussed with me and documented in the resident note. 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 - Evidence of squamous cell carcinoma is not surprising due to the long history of chronic inflammation and infection - Acute and chronic markers of inflammation are elevated - Sample to be sent to path to r/u squamous cell carcinoma Blood cultures no growth after 2 days Wound culture heavy growth proteus and strep not A, B, or D pansensitive Leg MRI showing large soft tissue defect in the anterior tibial with complete destruction of the mid shaft of the tibia Ortho consulted: plan for OR today by Dr. Ballard for right leg amputation. Vancomycin (started 07/06) Zosyn 3.375gm q6h (started 07/06) Tylenol and [place] for pain (caution with medications as she has no tolerance) (2) Anemia Status: Acute Plan: H&H of 5.1/16.5 on admission. No history of melena/hematochezia. Etiology likely due to bleeding from wound. Transfused 2 units PRBCs - Post transfusion H&H improved 8.5/26.6 Hgb stable, 8.7 today Iron studies significant for low iron, TIBC, % saturation. Additionally ferritin is low at 28 Hemoccult pending Iron 325 mg bid (after Hemoccult has been obtained) Vitamin C 500 mg daily (3) Nutrition, metabolism, and development symptoms Status: Acute Plan: Diet: Has been NPO since midnight ahead of surgery, resume diet after OR Electrolytes within normal limits Fluids: NS at 42 mL/hr DVT prophylaxis: SCDs only due to possible upcoming surgery GI prophylaxis: Not indicated wdw Dr. Klein (Kwabena Warren MD R1) Problem Qualifiers (1) Osteomyelitis of right tibia: Qualified Code: M86.661 - Chronic osteomyelitis of right tibia (2) Anemia: Qualified Code: D50.0 - Iron deficiency anemia due to chronic blood loss Kwabena Warren MD R1 Jul 08, 2016 11:50 Rubina Klein MD Jul 08, 2016 17:08
[2016-07-08 12:00] VITALS: BP 142/66; PULSE 70; RESP 17; TEMP 95.6; O2SAT 98
[2016-07-08] MEDS ORDERED: GENTAMICIN SULFATE 80 MG/2 ML VIAL ONE ×2 (14:32→16:21)
[2016-07-08] MEDS ORDERED: BUPIVACAINE/EPINEPHRINE 0.25% PF 30 ML VIAL ONE (14:35)
[2016-07-08] MEDS ORDERED: ceFAZolin INJ 1,000 MG VIAL ONE (16:21)
[2016-07-08] MEDS ORDERED: MORPHINE SULFATE 4 MG/ML INJ IV PUSH PRN (18:30)
[2016-07-08] MEDS ORDERED: SODIUM CHLORIDE 0.9% FLUSH 5 ML FLUSH IVF PRN (18:30)
[2016-07-08] MEDS ORDERED: ACETAMINOPHEN/HYDROcodone 325 MG/7.5 MG TAB PO PRN (18:30)
--- NOTE | 2016-07-08 18:32 | PD.OP ---
cc: Kofi Sandra MD Operative Report Date of Surgery: Jul 08, 2016 Preoperative Diagnosis: Right leg infection with chronic osteomyelitis of tibia Postoperative Diagnosis: Procedure: Right above-knee of dictation Anesthesia: Gen. Surgeon: Kofi Sandra Sleeve Fixer(s): Yuan Montano PA-C The surgical procedure was assisted by my physician costumer assistant. My P.A. presence was necessary throughout this case for the manipulation and positioning of the surgical extremity. My P.A. was assisting me throughout the duration of this procedure. The skill set of a physician costumer assistant was medically necessary to complete this procedure. During the surgical case the certified surgical first assistant was working at the back table and the physician costumer assistant was directly assisting me. Operation and Findings: Informed consent was obtained preoperatively and operative site was marked. Patient was found to have a severely infected right lower extremity. Treatment options were discussed with patient and her family. I discussed with him possible open the indication versus above-knee of dictation. Given the extensive nature of infection, and above-knee of dictation is most likely necessary. Patient was brought to the OR and placed on the OR table. IV sedation and GETA were administered by anesthesia and IV antibiotics were given. The Operative leg was prepped with alcohol, followed by Hibiclens and draped in the usual sterile fashion. Time out procedure was performed. The leg was now evaluated. The infection appeared to extend up towards the proximal end of the tibia. Patient also had a severe knee contracture. Given the contracture and the extensive nature of the infection, decision was made for above-knee amputation. The procedure began with a standard incision for above amputation. The subcutaneous tissue was dissected with Bovie. The quadriceps muscle and fascia were incised with Bovie. The hamstring muscles were also incised. Soft tissue was retracted from the femur. Oscillating saw was used to cut through the femur. Tourniquet was now inflated. The tourniquet time was a total of 10 minutes. The posterior soft tissue was now incised with Bovie. The lower extremity was now removed from the field. At this point, attention was turned to hemostasis. The femoral vessels were identified and were now ligated with silk suture ties. The sciatic nerve was identified. The nerve sheath was injected with a 0.25% Marcaine with epinephrine for pain relief. The nerve was transected proximal to the femoral cut. The edges of the bone were smoothed with a rasp. The tourniquet was released and hemostasis was confirmed. A drain was placed deep. Attention was now turned to closure. The quadriceps fascia was now closed to the posterior hamstring fascia with #1 Vicryl. The subcutaneous tissues were closed with 3-0 Vicryl and skin was closed with thais. Sterile dressings were applied and CKS was applied. The patient was awakened and transferred to recovery in stable condition. Needle and sponge counts were correct. Kofi Sandra MD Jul 08, 2016 18:32
[2016-07-08] MEDS ORDERED: XARE10TA PO (18:41)
[2016-07-08] MEDS ORDERED: HYDR-3288 PO (18:41)
[2016-07-08 20:00] VITALS: BP 157/76; PULSE 78; RESP 18; TEMP 96.1; O2SAT 98
[2016-07-08] MEDS ORDERED: SODIUM CHLORIDE 0.9% FLUSH 5 ML FLUSH IVF SCH (21:00)
[2016-07-08] MEDS ORDERED: PHARMACY ORDERED LAB XX ONE (21:45)
[2016-07-08] MEDS: VANCOMYCIN INJ 700 MG in SODIUM CHLOR 0.9% 250 ML INJ 250 ML IV SCH (22:42)
[2016-07-08] MEDS: SODIUM CHLOR 0.9% 1000 ML INJ 1,000 ML IV SCH (22:43)
[2016-07-09] VITALS (8 sets, daily range): BP systolic 127–155; BP diastolic 60–78; PULSE 74–100; RESP 18–21; TEMP 96.6–98.4; O2SAT 95–99
[2016-07-09] MEDS: PIPERACIL-TAZO 3.375 GM PREMIX 50 ML IV SCH ×5 (06:00→23:17)
[2016-07-09 06:50] LABS: HEMATOCRIT 25.9 % (35.0-46.0)
--- NOTE | 2016-07-09 06:52 | PD.ORT.PN ---
Subjective Subjective Remarks Raeann is a 85-year-old female who has had a right leg infection for several years. 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 Patient relatively comfortable. Pain controlled Objective Vitals Vital Signs Date Time Temp Pulse Resp B/P Pulse Ox O2 Delivery O2 Flow Rate FiO2 07/09/16 04:00 97.4 85 18 139/78 95 07/09/16 01:00 98.4 79 18 128/65 99 07/08/16 20:00 96.1 78 18 157/76 98 07/08/16 19:46 97.3 81 14 141/78 97 Room Air 07/08/16 19:30 81 14 141/78 97 Room Air 07/08/16 19:16 82 14 130/78 96 Room Air 07/08/16 19:00 83 14 130/74 99 Room Air 07/08/16 18:39 97.3 87 14 117/68 99 Nasal Cannula 2 07/08/16 12:00 95.6 70 17 142/66 98 07/08/16 08:00 95.2 76 20 155/71 98 I/O 07/08/16 07/08/16 07/08/16 07/09/16 07/09/16 07/09/16 07:00 15:00 23:00 07:00 15:00 23:00 Intake Total 900 ml 567 ml Output Total 25 ml Balance 875 ml 567 ml IV Total 567 ml Other 900 ml Output Estimated Blood Loss 25 ml # Voids 8 2 12 # Bowel Movements 2 0 Result Diagram: 07/08/16 0748 07/08/16 0748 Imaging Last 24 hours Impressions Tibia/Fibula X-Ray 07/06/16 1221 Signed Impressions: Service Date/Time: Wednesday, July 06, 2016 12:50 - CONCLUSION: Open wound with evidence for osteomyelitis. Underlying squamous cell carcinoma cannot be entirely excluded. Jose Duvall MD FACR Objective Remarks Patient is awake and alert. RLE: dressing clean and dry., intact. Drain in place Assessment & Plan Assessment and Plan Patient doing well. Postop day #1 status post right above-knee amputation. Continue drain Change dressing and discontinue drain on postop day #3 Kofi Ballard MD Jul 09, 2016 06:52
[2016-07-09 07:23] LABS: REVIEW FLAG FINAL
[2016-07-09] MEDS: GABAPENTIN 300 MG CAP PO SCH ×3 (09:00→18:13)
[2016-07-09] MEDS: ASCORBIC ACID 500 MG TAB PO SCH (09:09)
[2016-07-09] MEDS: FERROUS SULFATE 325 MG (65 MG ELEMENTAL IRON) TAB PO SCH ×2 (09:09→20:46)
[2016-07-09] MEDS: SODIUM CHLORIDE 0.9% FLUSH 5 ML FLUSH FLUSH SCH ×2 (09:10→20:45)
--- NOTE | 2016-07-09 10:55 | HHI.FPPN ---
Subjective Remarks No events overnight. Blood pressures have ranged 110s-150s/60s-70s since coming back from the OR. Tmax 98.4F. Patient appears comfortable this morning and is very pleasant. States her pain is controlled. She denies any other symptoms. Denies chest pain, shortness of breath, cough, fevers or chills, pain or swelling of LLE. She is eager to work with physical therapy and be up out of bed. (Kwabena Warren MD R1) Objective Vitals Vital Signs Date Time Temp Pulse Resp B/P Pulse Ox O2 Delivery O2 Flow Rate FiO2 07/09/16 10:06 86 07/09/16 09:25 98 21 07/09/16 08:00 96.6 74 20 155/73 98 07/09/16 04:00 97.4 85 18 139/78 95 07/09/16 01:00 98.4 79 18 128/65 99 07/08/16 20:00 96.1 78 18 157/76 98 07/08/16 19:46 97.3 81 14 141/78 97 Room Air 07/08/16 19:30 81 14 141/78 97 Room Air 07/08/16 19:16 82 14 130/78 96 Room Air 07/08/16 19:00 83 14 130/74 99 Room Air 07/08/16 18:39 97.3 87 14 117/68 99 Nasal Cannula 2 07/08/16 12:00 95.6 70 17 142/66 98 I/O 07/08/16 07/08/16 07/08/16 07/09/16 07/09/16 07/09/16 07:00 15:00 23:00 07:00 15:00 23:00 Intake Total 900 ml 567 ml Output Total 25 ml Balance 875 ml 567 ml IV Total 567 ml Other 900 ml Output Estimated Blood Loss 25 ml # Voids 8 2 12 # Bowel Movements 2 0 (Kwabena Warren MD R1) Result Diagram: 07/09/16 0602 07/08/16 0748 Objective Remarks GENERAL: This is a thin-nourished, well-developed patient, in no apparent distress EYES: Extraocular motions intact. No scleral icterus. No injection or drainage. ENT: Nose without bleeding, purulent drainage. Airway patent. NECK: Supple, no meningeal signs. CARDIOVASCULAR: Regular rate and rhythm without murmurs, gallops, or rubs. RESPIRATORY: Clear to auscultation. Breath sounds equal bilaterally. No wheezes , rales, or rhonchi. Nonlabored. GASTROINTESTINAL: Abdomen soft, non-tender, nondistended. MUSCULOSKELETAL: AKA, wrapped, appears clean and dry. Drain in place. No LLE swelling or calf tenderness. NEUROLOGICAL: Awake and alert. Normal speech. receiving teller grossly intact. (Kwabena Warren MD R1) A/P Assessment and Plan 85-year-old female admitted for right tibial osteomyelitis s/p AKA by orthopedic surgery. Discharge Planning D/C pending ortho plan. Likely several days, will likely need rehab after. ( Kwabena Warren MD R1) Attending Attestation Patient seen and examined Case reviewed and discussed Agree with plan of care as discussed with me and documented in the resident note. Patient doing well post-operatively. Discussed plan of care with family at the bedside (Rubina Klein MD) Problem List: (1) Osteomyelitis of right tibia Status: Chronic Plan: X-ray RT tibia/fibula: significant for osteomyelitis and possible underlying squamous cell carcinoma. - Evidence of squamous cell carcinoma is not surprising due to the long history of chronic inflammation and infection - Acute and chronic markers of inflammation are elevated - Sample to be sent to path to r/u squamous cell carcinoma Blood cultures no growth after 2 days Wound culture heavy growth proteus and strep not A, B, or D pansensitive Leg MRI showing large soft tissue defect in the anterior tibial with complete destruction of the mid shaft of the tibia Ortho consulted: s/p AKA on 07/08. Plan to discontinue drain on postop day three. - Will follow up with Dr. Ballard in 2 weeks Vancomycin (started 07/06) Zosyn 3.375gm q6h (started 07/06) Infectious Disease consulted for recommendations on antibiotic therapy given chronic nature of osteomyelitis for at least three years. Tylenol and [place] 7.5 mg po q4h prn pain (caution with medications as she has no tolerance) Morphine 3 mg IV q3h prn breakthrough pain (2) Anemia Status: Acute Plan: H&H of 5.1/16.5 on admission. No history of melena/hematochezia. Etiology likely due to bleeding from wound. Transfused 2 units PRBCs - Post transfusion H&H improved 8.5/26.6 Hgb stable, 8.0 today postop Iron studies significant for low iron, TIBC, % saturation. Additionally ferritin is low at 28 Hemoccult pending Iron 325 mg bid (after Hemoccult has been obtained) Vitamin C 500 mg daily (3) Nutrition, metabolism, and development symptoms Status: Acute Plan: Diet: 2000 ADA diet Electrolytes: will monitor if indicated Fluids: discontinued DVT prophylaxis: SCDs for now. Consider Lovenox once 24-48 hours postop and pending Ortho clearance, and Hgb remains stable. GI prophylaxis: Not indicated sdw Dr. Goldberg wdw Dr. Klein (Kwabena Warren MD R1) Problem Qualifiers (1) Osteomyelitis of right tibia: Qualified Code: M86.661 - Chronic osteomyelitis of right tibia (2) Anemia: Qualified Code: D50.0 - Iron deficiency anemia due to chronic blood loss Kwabena Warren MD R1 Jul 09, 2016 10:55 Rubina Klein MD Jul 09, 2016 13:30
[2016-07-09] MEDS ORDERED: VANCOMYCIN 1,000 MG/NS 250 ML IV SCH ×2 (16:00)
--- NOTE | 2016-07-09 17:36 | MB ---
cc: ANDREZ CALLES MD, RAJ MD DATE OF CONSULTATION: 07/09/2016 REASON FOR CONSULTATION: Antibiotic recommend. Patient with right lower extremity osteomyelitis and now status post right lower extremity amputation. HISTORY OF PRESENT ILLNESS: The patient is an 85 year-old white female who had a chronic wound of her right lower calf for the past two years or so. The patient was admitted to the hospital and was found to have osteomyelitis of the foot. There was purulence and foul odor coming from the wound. The wound culture came back with strep, non-ABD and proteus. The patient was evaluated by orthopedic surgery and she underwent right AKA on 07/08/16. She is laying in bed with no acute distress. She feels well. She states that she has occasional pain on a 4/10 scale. She is afebrile. This consultation is requested for antibiotic management. A culture from the wound was obtained on 07/06/16. White blood cell count is normal. PAST MEDICAL HISTORY: Unremarkable. PAST SURGICAL HISTORY ORIF of the right wrist. ALLERGIES NO KNOWN DRUG ALLERGIES. MEDICATIONS 1. Vancomycin. 2. Ferrous sulfate. 3. Vitamin C 4. [place]-Colace. 5. Piperacillin/Tazobactam. SOCIAL HISTORY No tobacco, no alcohol. No illicit drugs. FAMILY HISTORY Noncontributory. REVIEW OF SYSTEMS: Negative on 10-point review. PHYSICAL EXAMINATION This is a well-developed female who is in no acute distress. She is awake and alert and oriented. Vital signs: Include temperature 97.5, BP 136/69, respirations 2184. Heart rate 84. HEENT: Head atraumatic. Extraocular movements grossly intact. No icterus. Oropharynx: moist mucosa without lesions. Neck: Supple. No adenopathy. Lungs: Clear breath sounds. Heart: Regular rate and rhythm without murmurs, rubs or gallops. Abdomen: Bowel sounds present, soft, nontender. Rectal: Not performed. Extremities: The right leg is post AKA. There is a dressing on the wound which is not removed for inspection at this time. There is a catheter that exits the wound and it has serosanguineous drainage in the bulb. Skin: The skin has no rash. Neuro: Nonfocal. Psych: The patient is calm and cooperative. LABORATORY DATA WBC 5.9, platelet 548, hemoglobin 8.0, creatinine 0.66, BUN 17, sodium 140. IMPRESSION Osteomyelitis involving the right lower extremity. The patient is post right AKA. Previous culture grew out Proteus and strep non-ABD. RECOMMENDATIONS 1. Discontinue vancomycin today. 2. Discontinue piperacillin/Tazobactam after the drainage catheter is removed from the wound bed. Since the patient has no signs of sepsis, she will not require additional antibiotics after stopping the piperacillin/tazobactam and attention will not be focused on healing of the wound postop. Thank you for this consultation. Andrez Calles MD FD/ROBERTO /3:02 PM /5:15 PM
[2016-07-10] VITALS (7 sets, daily range): BP systolic 87–122; BP diastolic 52–67; PULSE 70–90; RESP 16–20; TEMP 95.2–98.6; O2SAT 98–99
[2016-07-10] MEDS: PIPERACIL-TAZO 3.375 GM PREMIX 50 ML IV SCH ×3 (05:29→18:16)
[2016-07-10 06:26] LABS: BASOPHIL % 0.8 % (0.0-2.0); EOSINOPHIL # 0.1 TH/MM3 (0-0.4); EOSINOPHIL % 2.9 % (0.0-4.0); HEMATOCRIT 23.2 % (35.0-46.0); LYMPH % 33.5 % (9.0-44.0); LYMPHOCYTE # 1.3 TH/MM3 (1.0-4.8); MEAN CELL VOLUME 69.6 FL (80.0-100.0); MEAN CORPUSCULAR HGB CONC 31.6 % (32.0-36.0); MONO % 11.8 % (0.0-8.0); PLATELET COUNT 398 TH/MM3 (150-450); RED BLOOD COUNT 3.33 MIL/MM3 (4.00-5.30); RED CELL DISTRIBUTION WIDTH 29.4 % (11.6-17.2); WHITE BLOOD COUNT 3.9 TH/MM3 (4.0-11.0)
[2016-07-10 06:28] LABS: HEMO FLAGS AUTO DIFF
[2016-07-10 06:50] LABS: BICARBONATE 25.4 MEQ/L (21.0-32.0)
--- NOTE | 2016-07-10 07:03 | PD.ORT.PN ---
Subjective Subjective Remarks Resting comfortably with no new complaints Objective Vitals Vital Signs Date Time Temp Pulse Resp B/P Pulse Ox O2 Delivery O2 Flow Rate FiO2 07/10/16 04:36 98.4 90 18 122/62 98 07/09/16 20:00 97.8 88 18 127/60 98 07/09/16 20:00 100 07/09/16 16:00 97.6 88 20 128/64 98 07/09/16 12:00 97.5 84 21 136/69 98 07/09/16 10:06 86 07/09/16 09:25 98 21 07/09/16 08:00 96.6 74 20 155/73 98 I/O 07/09/16 07/09/16 07/09/16 07/10/16 07/10/16 07/10/16 07:00 15:00 23:00 07:00 15:00 23:00 Intake Total 567 ml 340 ml 100 ml Balance 567 ml 340 ml 100 ml Intake Oral 240 ml IV Total 567 ml 100 ml 100 ml # Voids 12 1 1 0 # Bowel Movements 0 Result Diagram: 07/10/16 0600 07/10/16 0600 Imaging Last 24 hours Impressions Tibia/Fibula X-Ray 07/06/16 1221 Signed Impressions: Service Date/Time: Wednesday, July 06, 2016 12:50 - CONCLUSION: Open wound with evidence for osteomyelitis. Underlying squamous cell carcinoma cannot be entirely excluded. Jose Duvall MD FACR Objective Remarks Patient is awake and alert. RLE: dressing clean and dry., intact. Drain in place Assessment & Plan Assessment and Plan Patient doing well. Postop day #2 status post right above-knee amputation. Continue drain We will Change dressing and discontinue drain on postop day #3. Have Xeroform, 4 x 4's, ABD bedside for dressing change tomorrow morning SARI AVENDANO PA-C Jul 10, 2016 07:02
[2016-07-10] MEDS: FERROUS SULFATE 325 MG (65 MG ELEMENTAL IRON) TAB PO SCH ×2 (07:56→20:41)
[2016-07-10] MEDS: ASCORBIC ACID 500 MG TAB PO SCH (07:56)
[2016-07-10] MEDS: GABAPENTIN 300 MG CAP PO SCH ×3 (07:56→18:15)
[2016-07-10] MEDS: SODIUM CHLORIDE 0.9% FLUSH 5 ML FLUSH FLUSH SCH ×2 (07:58→20:41)
[2016-07-10 08:23] LABS: KERATOCYTES OCC (NORMAL); PLATELET ESTIMATE SMEAR NORMAL (NORMAL); PLATELET MORPHOLOGY NORMAL (NORMAL); SCAN/DIFF AUTO DIFF CONFIRMED
--- NOTE | 2016-07-10 10:13 | HHI.FPPN ---
Subjective Remarks Attending note: Patient was seen and examined with the resident team and the patient's nurse.. Overall appears to be doing well, on orientation did note that it was June,, [facility]. Patient has no complaints of pain. Chart was reviewed. Infectious disease and orthopedics note noted. Objective Vitals Vital Signs Date Time Temp Pulse Resp B/P Pulse Ox O2 Delivery O2 Flow Rate FiO2 07/10/16 08:33 95.2 80 18 117/67 98 07/10/16 04:36 98.4 90 18 122/62 98 07/09/16 20:00 97.8 88 18 127/60 98 07/09/16 20:00 100 07/09/16 16:00 97.6 88 20 128/64 98 07/09/16 12:00 97.5 84 21 136/69 98 I/O 07/09/16 07/09/16 07/09/16 07/10/16 07/10/16 07/10/16 07:00 15:00 23:00 07:00 15:00 23:00 Intake Total 567 ml 340 ml 100 ml Balance 567 ml 340 ml 100 ml Intake Oral 240 ml IV Total 567 ml 100 ml 100 ml # Voids 12 1 1 0 # Bowel Movements 0 Result Diagram: 07/10/16 0600 07/10/16 0600 Objective Remarks GENERAL: Elderly woman who makes excellent eye contact, pleasant in conversation, oriented as per subjective. CARDIOVASCULAR: Regular rate and rhythm without murmurs, gallops, or rubs. RESPIRATORY: Clear to auscultation. Breath sounds equal bilaterally. No wheezes , rales, or rhonchi. GASTROINTESTINAL: Abdomen soft, non-tender, nondistended. MUSCULOSKELETAL: AKA, wrapped, appears clean and dry. Drain in place. Left lower extremity examined, calf is supple, foot is warm and dry and intact pedal pulses. NEUROLOGICAL: Awake and alert. Appropriate speech, some early on question regarding orientation. crotch breaker grossly intact. A/P Assessment and Plan Clinical assessment: Status post right AKA for osteomyelitis with mixed organisms. Appreciate infectious disease recommendations. All antibiotics will be discontinued with the drain is removed, anticipate this to be postop day 3. Anemia discussed with resident. Need to ascertain her status when posteriorly up and about. May need additional transfusion with permission of patient. Patient seen and examined. Case reviewed and discussed with resident team. Agree with plan of care as discussed with me and documented in the resident note. Discharge Planning D/C pending ortho plan. Likely several days, will likely need rehab after. Problem List: (1) Osteomyelitis of right tibia Status: Chronic Plan: X-ray RT tibia/fibula: significant for osteomyelitis and possible underlying squamous cell carcinoma. - Evidence of squamous cell carcinoma is not surprising due to the long history of chronic inflammation and infection - Acute and chronic markers of inflammation are elevated - Sample to be sent to path to r/u squamous cell carcinoma Blood cultures no growth after 2 days Wound culture heavy growth proteus and strep not A, B, or D pansensitive Leg MRI showing large soft tissue defect in the anterior tibial with complete destruction of the mid shaft of the tibia Ortho consulted: s/p AKA on 07/08. Plan to discontinue drain on postop day three. - Will follow up with Dr. Ballard in 2 weeks Vancomycin (started 07/06) Zosyn 3.375gm q6h (started 07/06) Infectious Disease consulted for recommendations on antibiotic therapy given chronic nature of osteomyelitis for at least three years. Tylenol and [place] 7.5 mg po q4h prn pain (caution with medications as she has no tolerance) Morphine 3 mg IV q3h prn breakthrough pain (2) Anemia Status: Acute Plan: H&H of 5.1/16.5 on admission. No history of melena/hematochezia. Etiology likely due to bleeding from wound. Transfused 2 units PRBCs - Post transfusion H&H improved 8.5/26.6 Hgb stable, 8.0 today postop Iron studies significant for low iron, TIBC, % saturation. Additionally ferritin is low at 28 Hemoccult pending Iron 325 mg bid (after Hemoccult has been obtained) Vitamin C 500 mg daily (3) Nutrition, metabolism, and development symptoms Status: Acute Plan: Diet: 2000 ADA diet Electrolytes: will monitor if indicated Fluids: discontinued DVT prophylaxis: SCDs for now. Consider Lovenox once 24-48 hours postop and pending Ortho clearance, and Hgb remains stable. GI prophylaxis: Not indicated sdw Dr. Goldberg wdw Dr. Klein Problem Qualifiers (1) Osteomyelitis of right tibia: Qualified Code: M86.661 - Chronic osteomyelitis of right tibia (2) Anemia: Qualified Code: D50.0 - Iron deficiency anemia due to chronic blood loss Quirino Barksdale MD Jul 10, 2016 10:13
--- NOTE | 2016-07-10 10:29 | HHI.FPPN ---
Subjective Remarks No acute events overnight but there was some reported confusion; likely due to owning. This morning patient feels well and has no complaints. Currently eating breakfast and having no nausea/vomiting. Objective Vitals Vital Signs Date Time Temp Pulse Resp B/P Pulse Ox O2 Delivery O2 Flow Rate FiO2 07/10/16 08:33 95.2 80 18 117/67 98 07/10/16 04:36 98.4 90 18 122/62 98 07/09/16 20:00 97.8 88 18 127/60 98 07/09/16 20:00 100 07/09/16 16:00 97.6 88 20 128/64 98 07/09/16 12:00 97.5 84 21 136/69 98 I/O 07/09/16 07/09/16 07/09/16 07/10/16 07/10/16 07/10/16 07:00 15:00 23:00 07:00 15:00 23:00 Intake Total 567 ml 340 ml 100 ml Balance 567 ml 340 ml 100 ml Intake Oral 240 ml IV Total 567 ml 100 ml 100 ml # Voids 12 1 1 0 # Bowel Movements 0 Result Diagram: 07/10/16 0600 07/10/16 0600 Objective Remarks GENERAL: Elderly woman who makes excellent eye contact, pleasant in conversation, oriented to month, place, person but not to year CARDIOVASCULAR: Regular rate and rhythm without murmurs, gallops, or rubs. RESPIRATORY: Clear to auscultation. Breath sounds equal bilaterally. No wheezes , rales, or rhonchi. GASTROINTESTINAL: Abdomen soft, non-tender, nondistended. MUSCULOSKELETAL: AKA, wrapped, appears clean and dry. Drain in place. Left lower extremity examined, foot is warm and dry and intact pedal pulses. NEUROLOGICAL: Awake and alert. Appropriate speech. bulk filler grossly intact. A/P Assessment and Plan 85-year-old female admitted for right tibial osteomyelitis s/p AKA by orthopedic surgery. Discharge Planning D/C pending ortho clearance. Will need rehab upon discharge. Likely 1-2days sdw Dr. Warren wdw Dr. Barksdale Problem List: (1) Osteomyelitis of right tibia Status: Chronic Plan: History of chronic wound infection for the last 2-3 years with no medical intervention. Found to have osteomyelitis of possible squamous cell carcinoma underlying. -Evidence of squamous cell carcinoma is not surprising due to the long history of chronic inflammation and infection -Sample to be sent to path to r/u squamous cell carcinoma Blood cultures negative Wound culture heavy growth proteus and strep not A, B, or D pansensitive Ortho consulted: s/p DIPIKA on 07/08. Plan to discontinue drain on postop day three. - Will follow up with Dr. Ballard in 2 weeks Infectious Disease: * Discontinue vancomycin * Discontinue Zosyn after drainage catheter is removed Imaging: * X-ray RT tibia/fibula: significant for osteomyelitis and possible underlying squamous cell carcinoma. * Leg MRI showing large soft tissue defect in the anterior tibial with complete destruction of the mid shaft of the tibia Medications: * Vancomycin (07/06-07/09) * Zosyn 3.375gm q6h (started 07/06): To be discontinued on 07/11 * Tylenol, morphine, [place] for pain: (caution with medications as she has no tolerance) (2) Anemia Status: Acute Plan: H&H of 5.1/16.5 on admission. No history of melena/hematochezia. Etiology likely due to bleeding from wound. Iron studies suggestive of iron deficiency anemia Transfused 2 units PRBCs - Post transfusion H&H improved 8.5/26.6 Hemoglobin this morning was low at 7.3 the patient is otherwise asymptomatic. * Repeat H&H at 12 * Transfuse if <7.0 Hemoccult was ordered but never obtained and patient is currently on iron now. Medications: * Iron 325 mg bid * Vitamin C 500 mg daily (3) Nutrition, metabolism, and development symptoms Status: Acute Plan: Diet: 2000 ADA diet Electrolytes: will monitor if indicated Fluids: none DVT prophylaxis: SCDs for now. Consider Lovenox once 24-48 hours postop and pending Ortho clearance and improvement in H&H GI prophylaxis: Not indicated Problem Qualifiers (1) Osteomyelitis of right tibia: Qualified Code: M86.661 - Chronic osteomyelitis of right tibia (2) Anemia: Qualified Code: D50.0 - Iron deficiency anemia due to chronic blood loss Xenia Goldberg MD R2 Jul 10, 2016 10:29
[2016-07-10 12:23] LABS: HEMATOCRIT 26.8 % (35.0-46.0)
[2016-07-10 12:31] LABS: REVIEW FLAG FINAL
[2016-07-10] MEDS ORDERED: TEMAZEPAM 7.5 MG CAP PO ONE (21:00)
[2016-07-11] MEDS: PIPERACIL-TAZO 3.375 GM PREMIX 50 ML IV SCH ×3 (00:02→12:00)
[2016-07-11 00:49] VITALS: BP 95/54; PULSE 71; RESP 16; TEMP 97; O2SAT 93
[2016-07-11 04:51] VITALS: BP 116/59; PULSE 78; RESP 16; TEMP 96.9; O2SAT 99
[2016-07-11 07:14] LABS: HEMATOCRIT 25.7 % (35.0-46.0); MEAN CELL VOLUME 70.6 FL (80.0-100.0); MEAN CORPUSCULAR HEMOGLOBIN 21.6 PG (27.0-34.0); MEAN CORPUSCULAR HGB CONC 30.6 % (32.0-36.0); PLATELET COUNT 426 TH/MM3 (150-450); RED BLOOD COUNT 3.65 MIL/MM3 (4.00-5.30); RED CELL DISTRIBUTION WIDTH 29.5 % (11.6-17.2)
[2016-07-11 07:21] LABS: BICARBONATE 24.4 MEQ/L (21.0-32.0); POTASSIUM 4.3 MEQ/L (3.5-5.1)
[2016-07-11 08:19] VITALS: BP 102/60; PULSE 72; RESP 18; TEMP 96.6; O2SAT 96
[2016-07-11] MEDS: FERROUS SULFATE 325 MG (65 MG ELEMENTAL IRON) TAB PO SCH (09:00)
[2016-07-11] MEDS: SODIUM CHLORIDE 0.9% FLUSH 5 ML FLUSH FLUSH SCH (09:00)
[2016-07-11] MEDS: GABAPENTIN 300 MG CAP PO SCH ×2 (09:36→13:00)
[2016-07-11] MEDS: ASCORBIC ACID 500 MG TAB PO SCH (09:37)
--- NOTE | 2016-07-11 10:01 | PD.ORT.PN ---
Subjective Subjective Remarks POD 3 s/p right leg AKA doing well. pain controlled. no complaints Objective Vitals Vital Signs Date Time Temp Pulse Resp B/P Pulse Ox O2 Delivery O2 Flow Rate FiO2 07/11/16 08:19 96.6 72 18 102/60 96 07/11/16 04:51 96.9 78 16 116/59 99 07/11/16 00:49 97.0 71 16 95/54 93 07/10/16 20:10 97.4 80 16 97/56 98 07/10/16 19:00 80 07/10/16 16:13 98.6 80 20 107/56 99 07/10/16 12:18 96.0 70 20 87/52 98 I/O 07/10/16 07/10/16 07/10/16 07/11/16 07/11/16 07/11/16 07:00 15:00 23:00 07:00 15:00 23:00 Intake Total 100 ml 55 ml 660 ml Output Total 10 ml 3 ml Balance 100 ml 45 ml 660 ml -3 ml Intake Oral 660 ml IV Total 100 ml 55 ml Drainage Total 10 ml 3 ml # Voids 0 4 3 # Bowel Movements 0 0 Result Diagram: 07/11/16 0545 07/11/16 0545 Imaging Last 24 hours Impressions Tibia/Fibula X-Ray 07/06/16 1221 Signed Impressions: Service Date/Time: Wednesday, July 06, 2016 12:50 - CONCLUSION: Open wound with evidence for osteomyelitis. Underlying squamous cell carcinoma cannot be entirely excluded. Jose Duvall MD FACR Objective Remarks Patient is awake and alert. RLE: dressing clean and dry., intact. Drain in place. dressing removed. incision visualized. clean and dry. intact Assessment & Plan Assessment and Plan 1) Right Leg AKA - POD 3 -dressing change performed at bedside today -daily dressing changes with xeroform/4x4/soft roll/ CARLOS wrap/ stockinette -ortho clear for discharge to rehab -f/u in 2 weeks in office with Coni or Сергей Cox Jul 11, 2016 10:01
[2016-07-11 12:39] VITALS: BP 108/62; PULSE 87; RESP 18; TEMP 96.4; O2SAT 97
[2016-07-11] MEDS ORDERED: POLYETHYLENE GLYCOL 17 GM PKG PO ONE (13:00)
--- NOTE | 2016-07-11 13:16 | HHI.DCPOC ---
Discharge Care Plan Diagnosis: (1) Osteomyelitis of right tibia (2) Anemia Goals to Promote Your Health * To prevent worsening of your condition and complications * To maintain your health at the optimal level Directions to Meet Your Goals Take your medications as prescribed Follow your dietary instruction Follow activity as directed Keep your appointments as scheduled Take your immunizations and boosters as scheduled If your symptoms worsen call your PCP, if no PCP go to Urgent Care Center or Emergency Room Smoking is Dangerous to Your Health. Avoid second hand smoke Call the 24-hour hour crisis hotline for domestic abuse at Xenia Goldberg MD R2 Jul 11, 2016 13:16
[2016-07-11] MEDS ORDERED: VITA500T PO (13:17)
[2016-07-11] MEDS ORDERED: FERR325T PO (13:17)
[2016-07-11] MEDS ORDERED: NEUR300C PO (13:17)
--- NOTE | 2016-07-11 14:43 | HHI.FPPN ---
Subjective Remarks No events overnight. Afebrile, vitals are stable. Patient reports her pain this morning is about an 8/10. She states she was working with physical therapy and enjoyed that. Denies chest pain, shortness of breath, cough, abdominal pain, pain or swelling of left lower extremity. Denies fevers or chills. Objective Vitals Vital Signs Date Time Temp Pulse Resp B/P Pulse Ox O2 Delivery O2 Flow Rate FiO2 07/11/16 12:39 96.4 87 18 108/62 97 07/11/16 08:19 96.6 72 18 102/60 96 07/11/16 04:51 96.9 78 16 116/59 99 07/11/16 00:49 97.0 71 16 95/54 93 07/10/16 20:10 97.4 80 16 97/56 98 07/10/16 19:00 80 07/10/16 16:13 98.6 80 20 107/56 99 I/O 07/10/16 07/10/16 07/10/16 07/11/16 07/11/16 07/11/16 07:00 15:00 23:00 07:00 15:00 23:00 Intake Total 100 ml 55 ml 660 ml Output Total 10 ml 3 ml Balance 100 ml 45 ml 660 ml -3 ml Intake Oral 660 ml IV Total 100 ml 55 ml Drainage Total 10 ml 3 ml # Voids 0 4 3 # Bowel Movements 0 0 Result Diagram: 07/11/16 0545 07/11/16 0545 Objective Remarks GENERAL: Sitting comfortably in wheelchair, NAD, very pleasant, AOx3 CARDIOVASCULAR: Regular rate and rhythm without murmurs, gallops, or rubs. RESPIRATORY: Clear to auscultation. Breath sounds equal bilaterally. No wheezes , rales, or rhonchi. GASTROINTESTINAL: Abdomen soft, non-tender, nondistended. MUSCULOSKELETAL: AKA, wrapped, appears clean and dry. Drain removed. LLE without edema or tenderness. NEUROLOGICAL: Awake and alert. Appropriate speech. bridge gang worker grossly intact. A/P Assessment and Plan 85-year-old female admitted for right tibial osteomyelitis s/p AKA by orthopedic surgery. Discharge Planning Stable for discharge today to inpatient rehabilitation. Problem List: (1) Osteomyelitis of right tibia Status: Chronic Plan: History of chronic wound infection for the last 2-3 years with no medical intervention. Found to have osteomyelitis of possible squamous cell carcinoma underlying. -Evidence of squamous cell carcinoma is not surprising due to the long history of chronic inflammation and infection -Sample to be sent to path to r/u squamous cell carcinoma. Examined surgical margins or resection are negative for carcinoma. Blood cultures negative after 5 days Wound culture heavy growth proteus and strep not A, B, or D pansensitive Ortho consulted: s/p DIPIKA on 07/08. Drain removed. - Will follow up with Dr. Ballard in 2 weeks [place] prn pain Infectious Disease: * Discontinued vancomycin * Discontinued Zosyn after drainage catheter removed today Imaging: * X-ray RT tibia/fibula: significant for osteomyelitis and possible underlying squamous cell carcinoma. * Leg MRI showing large soft tissue defect in the anterior tibial with complete destruction of the mid shaft of the tibia (2) Anemia Status: Acute Plan: H&H of 5.1/16.5 on admission. No history of melena/hematochezia. Etiology likely due to chronic bleeding from wound. Iron studies suggestive of iron deficiency anemia Transfused 2 units PRBCs; Post transfusion H&H improved 8.5/26.6 Hemoglobin has remained stable Hemoccult was ordered however never obtained and patient is already currently on iron supplementation Iron 325 mg bid Vitamin C 500 mg daily (3) Nutrition, metabolism, and development symptoms Status: Acute Plan: Diet: 1999 ADA diet Electrolytes: unremarkable Fluids: none Problem Qualifiers (1) Osteomyelitis of right tibia: Qualified Code: M86.661 - Chronic osteomyelitis of right tibia (2) Anemia: Qualified Code: D50.0 - Iron deficiency anemia due to chronic blood loss Kwabena Warren MD R1 Jul 11, 2016 14:43
--- NOTE | 2016-07-11 15:48 | HHI.DS ---
Discharge Summary Admission Date Jul 06, 2016 at 14:37 Discharge Date: Jul 11, 2016 Admitting Diagnosis osteomyelitis, anemia (1) Osteomyelitis of right tibia Diagnosis: Principal Plan: History of chronic wound infection for the last 2-3 years with no medical intervention. Found to have osteomyelitis of possible squamous cell carcinoma underlying. -Evidence of squamous cell carcinoma is not surprising due to the long history of chronic inflammation and infection -Sample to be sent to path to r/u squamous cell carcinoma. Examined surgical margins or resection are negative for carcinoma. Blood cultures negative after 5 days Wound culture heavy growth proteus and strep not A, B, or D pansensitive Ortho consulted: s/p DIPIKA on 07/08. Drain removed. - Will follow up with Dr. Ballard in 2 weeks [place] prn pain Infectious Disease: * Discontinued vancomycin * Discontinued Zosyn after drainage catheter removed today Imaging: * X-ray RT tibia/fibula: significant for osteomyelitis and possible underlying squamous cell carcinoma. * Leg MRI showing large soft tissue defect in the anterior tibial with complete destruction of the mid shaft of the tibia (2) Anemia Diagnosis: Principal Plan: H&H of 5.1/16.5 on admission. No history of melena/hematochezia. Etiology likely due to chronic bleeding from wound. Iron studies suggestive of iron deficiency anemia Transfused 2 units PRBCs; Post transfusion H&H improved 8.5/26.6 Hemoglobin has remained stable Hemoccult was ordered however never obtained and patient is already currently on iron supplementation Iron 325 mg bid Vitamin C 500 mg daily (3) Nutrition, metabolism, and development symptoms Diagnosis: Secondary Plan: Diet: 2000 ADA diet Electrolytes: unremarkable Fluids: none Consultants Orthopedic surgery, infectious disease Procedures Right [id number] amputation on 07/08/2016 Brief History Patient is a 85-year-old female who presented here today for right lower extremity lesion. 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 The right lower extremity lesion has been present for the last 2-3 years and has progressively worsened during this time. The wound causes significant pain which caused patient to be wheelchair-bound for the last 1.5 years. The care provided by the [employer] social [employer] research scientist nurses has now been exhausted and patient was recently evaluated by a home hospice nurse who recommended that patient come in to the hospital immediately. Beyond the pain, patient denies chest pain, shortness of breath, dizziness, fever/chills, abdominal pain, nausea/vomiting, hematochezia, melena. At this time, patient is open to medical therapies. CBC/BMP: 07/11/16 0545 07/11/16 0545 Significant Findings Laboratory Tests Test 07/09/16 07/10/16 07/10/16 07/11/16 06:02 06:00 12:01 05:45 Hemoglobin 8.0 GM/DL 7.3 GM/DL 8.3 GM/DL 7.9 GM/DL (11.6-15.3) (11.6-15.3) (11.6-15.3) (11.6-15.3) Hematocrit 25.9 % 23.2 % 26.8 % 25.7 % (35.0-46.0) (35.0-46.0) (35.0-46.0) (35.0-46.0) White Blood Count 3.9 TH/MM3 (4.0-11.0) Red Blood Count 3.33 MIL/MM3 3.65 MIL/MM3 (4.00-5.30) (4.00-5.30) Mean Corpuscular Volume 69.6 FL 70.6 FL (80.0-100.0) (80.0-100.0) Mean Corpuscular Hemoglobin 22.0 PG 21.6 PG (27.0-34.0) (27.0-34.0) Mean Corpuscular Hemoglobin 31.6 % 30.6 % Concent (32.0-36.0) (32.0-36.0) Red Cell Distribution Width 29.4 % 29.5 % (11.6-17.2) (11.6-17.2) Mean Platelet Volume 6.0 FL 6.4 FL (7.0-11.0) (7.0-11.0) Monocytes (%) (Auto) 11.8 % (0.0-8.0) Keratocytes OCC (NORMAL) Chloride Level 109 MEQ/L 111 MEQ/L (98-107) (98-107) Blood Urea Nitrogen 19 MG/DL (7-18) Estimat Glomerular Filtration 77 ML/MIN (>89) Rate Imaging Right Tibia/fibula x-ray showing open wound with evidence for osteomyelitis, underlying squamous cell carcinoma cannot be entirely excluded Right lower extremity MRI markedly abnormal MRI with large tissue defect and abnormal marrow PE at Discharge GENERAL: Sitting comfortably in wheelchair, NAD, very pleasant, AOx3 CARDIOVASCULAR: Regular rate and rhythm without murmurs, gallops, or rubs. RESPIRATORY: Clear to auscultation. Breath sounds equal bilaterally. No wheezes , rales, or rhonchi. GASTROINTESTINAL: Abdomen soft, non-tender, nondistended. MUSCULOSKELETAL: AKA, wrapped, appears clean and dry. Drain removed. LLE without edema or tenderness. NEUROLOGICAL: Awake and alert. Appropriate speech. 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 Hospital Course Hemoglobin on admission was 5.1. Patient was transfused 2 units of packed red blood cells. H&H remained stable thereafter. Orthopedic surgery was consulted for surgical intervention given the extent of RLE chronic wound. [id number] amputation was performed of the right lower extremity on 07/08/2016. Vancomycin and Zosyn were started on admission. Infectious disease was consulted given the wound being present for about 3 years. Zosyn was continued until postoperative day 3. Patient remained afebrile without systemic symptoms throughout hospitalization. Blood cultures remained negative after 5 days. Wound culture grew pansensitive Proteus and strep non-ABD. PT worked with patient, recommending inpatient rehab. Pt Condition on Discharge: Stable Discharge Disposition: Rehab Inpatient Discharge Instructions DIET: Follow Instructions for: As Tolerated, No Restrictions Activities you can perform: Partial Weight Bearing Activities to Avoid: Prolonged Standing, Strenuous Activity Follow up Referrals: Orthopedics - 2 Weeks @ [facility] with Kofi Ballard MD PCP Follow-up - 1 Week New Medications: Hydrocodone-Acetaminophen ([place]) 7.5-325 mg Tab 1 TAB PO Q4H PRN PAIN #60 Ref 0 TAB Rivaroxaban (Xarelto) 10 Mg Tab 10 MG PO DAILY Blood Clot Prevention #14 Ref 0 TAB Ascorbic Acid (Vitamin C) 500 Mg Tab 500 MG PO DAILY #30 TAB Ferrous Sulfate (Ferrous Sulfate) 325 Mg Tab 325 MG PO BID #30 TAB Gabapentin (Neurontin) 300 Mg Cap 300 MG PO TID #90 CAP Kwabena Warren MD R1 Jul 11, 2016 15:48
[2016-07-12] MEDS ORDERED: PHARMACY ORDERED LAB XX ONE (15:45)
[2016-07-24] MEDS ORDERED: WHEEMIS3 (12:00)
[2016-08-04] MEDS ORDERED: VITA500T PO (12:17)
[2016-08-04] MEDS ORDERED: COLL30T TOP (12:17)
[2016-08-04] MEDS ORDERED: AMLO5 PO (12:17)
[2016-08-04] MEDS ORDERED: ACET325T PO (12:17)
[2016-08-04] MEDS ORDERED: HYDR-3580 PO (12:18)
[2016-08-04] MEDS ORDERED: FERR325T PO (12:18)
[2016-08-04] MEDS ORDERED: DOCU1CAP39 PO (12:18)
[2016-08-04] MEDS ORDERED: NEUR300C PO (12:18)
[2016-08-04] MEDS ORDERED: HYDRO.5%T TOPICAL (12:18)
[2016-08-04] MEDS ORDERED: MILKSUS PO (12:18)
== END 2016-07-11 16:22 | DRG 475 ==
LOC: NEPA 11:38 → NEDA 14:37 → N05A 21:09
PROVIDERS: ADMIT Family Medicine; ATTEND Family Medicine
PROC: 30233N1 Transfusion of Nonautologous Red Blood Cells into Peripheral Vein, Percutaneous Approach (ICD-10-PCS; 2016-07-06)
PROC: 0Y6C0Z3 Detachment at Right Upper Leg, Low, Open Approach (ICD-10-PCS; principal; 2016-07-08 17:30)
DX: M86.161 Other acute osteomyelitis, right tibia and fibula (principal); C40.21 Malignant neoplasm of long bones of right lower limb; B96.4 Proteus (mirabilis) (morganii) as the cause of diseases classified elsewhere; D50.0 Iron deficiency anemia secondary to blood loss (chronic); M89.761 Major osseous defect, right lower leg; D47.3 Essential (hemorrhagic) thrombocythemia; R41.0 Disorientation, unspecified; Z66 Do not resuscitate; Z78.1 Physical restraint status; Z99.3 Dependence on wheelchair
CPT/HCPCS: 36430; 73590; 73720; 80048; 80053; 80202; 82728; 83540; 83550; 83605; 85014; 85018; 85025; 85027; 85610; 85652; 86140; 86403; 86850; 86900; 86901; 86920; 87040; 87070; 87077; 87186; 87205; 88307; 88311; 90471; 90714; 93005; 94150; 96365; 96368; 96375; A9579; J0690; J1200; J1580; J1885; J1940; J2370; J2405; J2543; J3010; J3370; J7030; J7050; J7120; P9016

== ENCOUNTER 2016-09-08 16:56 | Inpatient (IN) | payer MEDICARE ==
[~2016-09-08] VITALS: Ht 165.1 cm; Wt 60.0 kg
[~2016-09-08 16:56] MED LIST: ACET325T PO; DOCU1CAP39 PO; MILKSUS PO; VITA500T PO; WHEEMIS3
[2016-09-08 18:13] VITALS: BP 156/87; PULSE 87; RESP 20; TEMP 98; O2SAT 97
[2016-09-08] MEDS ORDERED: MORPHINE SULFATE 8 MG/ML INJ IM ONE (18:15)
[2016-09-08] MEDS ORDERED: SODIUM CHLORIDE 0.9% FLUSH 5 ML FLUSH IVF PRN (18:15)
[2016-09-08 18:38] LABS: AUTOMATED NEUTROPHIL # 4.6 TH/MM3 (1.8-7.7); BASOPHIL # 0.1 TH/MM3 (0-0.2); BASOPHIL % 1.1 % (0.0-2.0); EOSINOPHIL # 0.2 TH/MM3 (0-0.4); EOSINOPHIL % 3.3 % (0.0-4.0); HEMATOCRIT 29.4 % (35.0-46.0); LYMPH % 12.8 % (9.0-44.0); LYMPHOCYTE # 0.8 TH/MM3 (1.0-4.8); MEAN CELL VOLUME 78.4 FL (80.0-100.0); MEAN CORPUSCULAR HEMOGLOBIN 25.6 PG (27.0-34.0); MEAN CORPUSCULAR HGB CONC 32.7 % (32.0-36.0); MONO % 10.9 % (0.0-8.0); NEUT % 71.9 % (16.0-70.0); PLATELET COUNT 448 TH/MM3 (150-450); RED BLOOD COUNT 3.75 MIL/MM3 (4.00-5.30); RED CELL DISTRIBUTION WIDTH 23.4 % (11.6-17.2); WHITE BLOOD COUNT 6.4 TH/MM3 (4.0-11.0)
[2016-09-08 18:40] LABS: HEMO FLAGS AUTO DIFF
[2016-09-08 19:07] LABS: ANION GAP 9 MEQ/L (5-15); AST (GOT) 19 U/L (15-37); BLOOD UREA NITROGEN 19 MG/DL (7-18); CHLORIDE 100 MEQ/L (98-107); GLOMERULAR FILTRATION RATE 71 ML/MIN (>89); POTASSIUM 4.6 MEQ/L (3.5-5.1); SODIUM (NA) 135 MEQ/L (136-145)
[2016-09-08 19:11] LABS: ALKALINE PHOSPHATASE 125 U/L (45-117); ALT (GPT) 28 U/L (10-53); TOTAL BILIRUBIN ADULT 0.4 MG/DL (0.2-1.0)
[2016-09-08] MEDS ORDERED: MORPHINE SULFATE 4 MG/ML INJ IV PUSH ONE ×2 (19:15→22:30)
[2016-09-08 19:25] VITALS: PULSE 95; RESP 16; O2SAT 98
[2016-09-08 19:42] VITALS: PULSE 89; RESP 16; O2SAT 97
[2016-09-08 19:47] LABS: PLATELET ESTIMATE SMEAR HIGH (NORMAL); PLATELET MORPHOLOGY NORMAL (NORMAL); SCAN/DIFF AUTO DIFF CONFIRMED
--- NOTE | 2016-09-08 19:56 | PD ---
HPI Chief Complaint: Musculoskeletal Complaint Time Seen by Provider: 19:49 Travel History International Travel<30 days: No Contact w/Intl Traveler<30days: No Traveled to known affect area: No History of Present Illness HPI Patient 85-year-old female presents emergency department for right lower extremity pain. Patient on arrival is screening for her because he is in the hospital somewhere. 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 Patient's been followed by Dr. Sandra. Patient son has arrived and is calling the patient however she is referring to him as her . She is oriented to self only. She states her right leg is hurting her. According to son she has been having some phantom leg pain and has been given [facility]abapentin at the [facility]. As per patient's son the Dr. Fan's the patient's attending physician stated that the patient "may need some sort of scan". PFSH Past Medical History Hx Anticoagulant Therapy: No Arthritis: No Asthma: No Autoimmune Disease: No Anxiety: No Depression: No Heart Rhythm Problems: No Cancer: No Cardiovascular Problems: No High Cholesterol: No Chemotherapy: No Chest Pain: No Congestive Heart Failure: No COPD: No Cerebrovascular Accident: No Diabetes: No Diminished Hearing: No Endocrine: No Gastrointestinal Disorders: No GERD: No Genitourinary: No Headaches: No Hiatal Hernia: No Heparin Induced Thrombocytopen: No Hypertension: No Immune Disorder: No Implanted Vascular Access Dvce: No Kidney Stones: No Musculoskeletal: No Neurologic: No Psychiatric: No Reproductive: No Respiratory: No Migraines: No Radiation Therapy: No Renal Failure: No Seizures: No Sickle Cell Disease: No Sleep Apnea: No Thyroid Disease: No Ulcer: No Past Surgical History Abdominal Surgery: No AICD: No Arteriovenous Shunt: No Cardiac Surgery: No Ear Surgery: No Endocrine Surgery: No Eye Surgery: No Genitourinary Surgery: No Gynecologic Surgery: No Hysterectomy: No Insulin Pump: No Joint Replacement: No Neurologic Surgery: No Oral Surgery: No Pacemaker: No Thoracic Surgery: No Other Surgery: No Social History Alcohol Use: No Tobacco Use: No Substance Use: No Allergies-Medications (Allergen,Severity, Reaction): Coded Allergies: No Known Allergies (Unverified , 09/08/16) Reported Meds & Prescriptions Reported Meds & Active Scripts Active Milk of Magnesia Liq (Magnesium Hydroxide) 400 Mg/5 Ml Susp 30 Ml PO DAILY PRN 10 Days Dok (Docusate Sodium) 100 Mg Cap 100 Mg PO BID 30 Days Vitamin C (Ascorbic Acid) 500 Mg Tab 500 Mg PO DAILY 30 Days Acetaminophen 325 Mg Tab 650 Mg PO Q4H PRN Wheelchair (Device) 1 Mis Mis 1 Ea .ROUTE DIRECTED Review of Systems Except as stated in HPI: all other systems reviewed are Neg Physical Exam Narrative GENERAL: Well-developed well-nourished no apparent distress. SKIN: Warm and dry. HEAD: Atraumatic. Normocephalic. EYES: Pupils equal and round. No scleral icterus. No injection or drainage. ENT: No nasal bleeding or discharge. Mucous membranes pink and moist. NECK: Trachea midline. No JVD. CARDIOVASCULAR: Regular rate and rhythm. No murmur appreciated. RESPIRATORY: No accessory muscle use. Clear to auscultation. Breath sounds equal bilaterally. GASTROINTESTINAL: Abdomen soft, non-tender, nondistended. Hepatic and splenic margins not palpable. MUSCULOSKELETAL: Patient has previous AKA on the right, the stump appears clean dry and intact. No erythema. Patient has intermittent pain when lightly palpated which is not reproducible. She has evidence of good circulation to the distalmost stump. Left lower extremity is atraumatic. Pelvis is stable. Pulses motor and sensory are intact distally in the left lower extremity. NEUROLOGICAL: Awake and alert. No obvious cranial nerve deficits. Motor grossly within normal limits. Normal speech. PSYCHIATRIC: Appropriate mood and affect; insight and judgment normal. Data Data Last Documented VS Vital Signs Date Time Temp Pulse Resp B/P Pulse Ox O2 Delivery O2 Flow Rate FiO2 09/08/16 19:42 89 16 97 Room Air 09/08/16 18:13 98.0 156/87 Orders Complete Blood Count With Diff (09/08/16 18:04) Comprehensive Metabolic Panel (09/08/16 18:04) Westergren Sedimentation Rate (09/08/16 18:04) C-Reactive Protein (Crp) (09/08/16 18:04) Ecg Monitoring (09/08/16 18:04) Iv Access Insert/Monitor (09/08/16 18:04) Oximetry (09/08/16 18:04) Sodium Chloride 0.9% Flush (Ns Flush) (09/08/16 18:15) Morphine Inj (Morphine Inj) (09/08/16 18:15) Morphine Inj (Morphine Inj) (09/08/16 19:15) Femur (Ap & Lat/2vws) (09/08/16 ) Ct Abd/Pel W/O Iv Contrast (09/08/16 ) Vancomycin Inj (Vancomycin Inj) (09/08/16 21:00) Piperacil-Tazo 3.375 Gm Premix (Zosyn 3. (09/08/16 21:00) Urinalysis - C+S If Indicated (09/08/16 20:58) Chest, Single Ap (09/08/16 ) Urinary Catheter Management DONAL.Q8H (09/08/16 21:59) Admit Order (Ed Use Only) (09/08/16 22:24) Labs Laboratory Tests Test 09/08/16 09/08/16 18:15 21:00 White Blood Count 6.4 TH/MM3 Red Blood Count 3.75 MIL/MM3 Hemoglobin 9.6 GM/DL Hematocrit 29.4 % Mean Corpuscular Volume 78.4 FL Mean Corpuscular Hemoglobin 25.6 PG Mean Corpuscular Hemoglobin 32.7 % Concent Red Cell Distribution Width 23.4 % Platelet Count 448 TH/MM3 Mean Platelet Volume 6.6 FL Neutrophils (%) (Auto) 71.9 % Lymphocytes (%) (Auto) 12.8 % Monocytes (%) (Auto) 10.9 % Eosinophils (%) (Auto) 3.3 % Basophils (%) (Auto) 1.1 % Neutrophils # (Auto) 4.6 TH/MM3 Lymphocytes # (Auto) 0.8 TH/MM3 Monocytes # (Auto) 0.7 TH/MM3 Eosinophils # (Auto) 0.2 TH/MM3 Basophils # (Auto) 0.1 TH/MM3 CBC Comment AUTO DIFF Differential Comment AUTO DIFF CONFIRMED Platelet Estimate HIGH Platelet Morphology Comment NORMAL Erythrocyte Sedimentation Rate 105 mm/hr Sodium Level 135 MEQ/L Potassium Level 4.6 MEQ/L Chloride Level 100 MEQ/L Carbon Dioxide Level 26.0 MEQ/L Anion Gap 9 MEQ/L Blood Urea Nitrogen 19 MG/DL Creatinine 0.77 MG/DL Estimat Glomerular Filtration 71 ML/MIN Rate Random Glucose 120 MG/DL Calcium Level 9.3 MG/DL Total Bilirubin 0.4 MG/DL Aspartate Amino Transf 19 U/L (AST/SGOT) Alanine Aminotransferase 28 U/L (ALT/SGPT) Alkaline Phosphatase 125 U/L C-Reactive Protein 11.00 MG/DL Total Protein 7.0 GM/DL Albumin 2.4 GM/DL Urine Color YELLOW Urine Turbidity CLEAR Urine pH 6.5 Urine Specific [place] 1.012 Urine Protein NEG mg/dL Urine Glucose (UA) NEG mg/dL Urine Ketones NEG mg/dL Urine Occult Blood NEG Urine Nitrite NEG Urine Bilirubin NEG Urine Urobilinogen LESS THAN 2.0 MG/DL Urine Leukocyte Esterase NEG Urine RBC LESS THAN 1 /hpf Urine Squamous Epithelial <1 /hpf Cells Microscopic Urinalysis Comment CULT NOT INDICATED MDM Medical Decision Making Medical Screen Exam Complete: Yes Emergency Medical Condition: Yes Differential Diagnosis Past 2 myelitis this Kim's unlikely, hip pain, phantom limb pain, fracture , strain, sprain Narrative Course Concern is for recurrent osteomyelitis, however clinically I do not think this is a very strong likelihood. Patient will get an ESR and CRP and will discuss with Dr. Kaur. The patient may be very difficult to get an MRI on today as she would likely need significant sedation. Patient will be started on antibiotics. Patient was discussed with the Chelsea FONTANA as well as My Olmos at change shift. Andre Kumar MD Sep 08, 2016 19:56
--- NOTE | 2016-09-08 20:21 | RADRPT ---
EXAM DATE/TIME: 09/08/2016 19:50 [facility] COMPARISON: No previous studies available for comparison. INDICATIONS : Right femur pain. MEDICAL HISTORY : Anemia. SURGICAL HISTORY : Right lower leg amputation above the knee. ENCOUNTER: Initial ACUITY: 2 weeks PAIN SCORE: 8/10 LOCATION: Right proximal femur FINDINGS: The patient is status post [id number]-[id number]-[id number] amputation. There is diffuse osteopenia with mild degenerat earl change in the right hip. There is a questionable fracture deformity involving the right superior pubic rami. present in the right hip. CONCLUSION: 1. Status post above the knee amputation. 2. Questionable fracture involving the right superior pubic rami. Odin Romero MD on September 08, 2016 at 20:18 Board Certified Radiologist. This report was verified electronically.
[2016-09-08] MEDS ORDERED: VANCOMYCIN INJ 1,000 MG in SODIUM CHLOR 0.9% 250 ML INJ 250 ML IV ONE (21:00)
[2016-09-08] MEDS ORDERED: PIPERACIL-TAZO 3.375 GM PREMIX 50 ML IV ONE (21:00)
--- NOTE | 2016-09-08 21:23 | RADRPT ---
EXAM DATE/TIME: 09/08/2016 21:06 [facility] COMPARISON: No previous studies available for comparison. INDICATIONS : Rib pain after fall. MEDICAL HISTORY : Carcinoma, squamous cell. SURGICAL HISTORY : None. ENCOUNTER: Initial ACUITY: 1 day PAIN SCORE: 10/10 LOCATION: Bilateral chest FINDINGS: A single view of the chest demonstrates the lungs to be symmetrically aerated without evidence of mas s, infiltrate or effusion. There is mild scarring at the left lung base. The cardiomediastinal conto urs are unremarkable. Osseous structures are intact with old healed right rib fractures noted. There is diffuse osteopenia. CONCLUSION: No acute disease. Odin Romero MD on September 08, 2016 at 21:21 Board Certified Radiologist. This report was verified electronically.
[2016-09-08 21:34] LABS: BLOOD, URINE NEG (NEG); GLUCOSE,URINE NEG (NEG); KETONE, URINE NEG (NEG); NITRITE,URINE NEG (NEG); PH, URINE 6.5 (5.0-8.5); SQUAMOUS EPITHELIAL CELL URINE <1 /hpf (0-5); URINE COLOR YELLOW (YELLW/STRAW)
--- NOTE | 2016-09-08 21:38 | RADRPT ---
EXAM DATE/TIME: 09/08/2016 21:21 [facility] COMPARISON: No previous studies available for comparison. INDICATIONS : Trauma; abdominal pain. ORAL CONTRAST: No oral contrast ingested. RADIATION DOSE: 7.37 CTDIvol (mGy) MEDICAL HISTORY : Dementia. SURGICAL HISTORY : Non-responsive. ENCOUNTER: Initial ACUITY: 1 day PAIN SCALE: Non-responsive LOCATION: abdominal TECHNIQUE: Volumetric scanning of the abdomen and pelvis was performed. Using automated exposure control and ad justment of the mA and/or kV according to patient size, radiation dose was kept as low as reasonably achievable to obtain optimal diagnostic quality images. The lack of IV contrast limits the diagnosis for certain organ pathology. FINDINGS: LOWER LUNGS: Mild bibasilar atelectasis. LIVER: Homogeneous density without lesion. There is no dilation of the biliary tree. No calcified gallston es. SPLEEN: Normal size without lesion. PANCREAS: Within normal limits. KIDNEYS: Normal in size and shape. There is no mass, stone, or hydronephrosis. ADRENAL GLANDS: Within normal limits. VASCULAR: There is no aortic aneurysm. BOWEL/MESENTERY: The stomach, small bowel, and colon demonstrate no acute abnormality. There is no free intraperitone al air or fluid. There is a moderate amount of stool throughout the colon. ABDOMINAL WALL: Within normal limits. RETROPERITONEUM: There is no lymphadenopathy. BLADDER: No wall thickening or mass. REPRODUCTIVE: Within normal limits. INGUINAL: There is no lymphadenopathy or hernia. MUSCULOSKELETAL: There appears to be a fracture involving the right pubic symphysis. The fracture appears to be suspic ious for a pathologic fracture. There is a nondisplaced fracture involving the inferior right pubic r amus. There is also a fracture involving the left sacrum and the right sacrum. There is good alignmen t of the SI joints. There are degenerative changes of the lumbar spine. CONCLUSION: 1. There appears to be a pathologic fracture involving the right pubic symphysis. This needs to be co rrelated with patient's medical history for cancer. 2. Nondisplaced fracture involving the inferior right pubic ramus. 3. Nondisplaced fractures through the right and left sacrum. These could indicate insufficiency fract ures. Efren Milner MD on September 08, 2016 at 21:29 Board Certified Radiologist. This report was verified electronically.
[2016-09-08 21:53] LABS: COMMENT (UR) CULT NOT INDICATED; CULTURE IF INDICATED CULT NOT INDICATED
[2016-09-08] MEDS ORDERED: ONDANSETRON HCL 4 MG/2 ML VIAL IV PUSH ONE (22:30)
[2016-09-08 22:45] VITALS: BP 121/59; PULSE 94; RESP 16; O2SAT 97
[2016-09-08] MEDS ORDERED: MAGNESIUM HYDROXIDE SUSP 30 ML CUP PO PRN (22:45)
[2016-09-08] MEDS ORDERED: SODIUM CHLORIDE 0.9% FLUSH 5 ML FLUSH FLUSH PRN (22:45)
[2016-09-08] MEDS ORDERED: ACETAMINOPHEN 325 MG TAB PO PRN (22:45)
[2016-09-08] MEDS ORDERED: BISACODYL 10 MG SUPP PR PRN (22:45)
[2016-09-08] MEDS ORDERED: SENNOSIDES 8.6 MG TAB PO PRN (22:45)
[2016-09-08] MEDS ORDERED: NALOXONE HCL 0.4 MG/ML AMP IV PRN (22:45)
[2016-09-08] MEDS ORDERED: ONDANSETRON HCL 4 MG/2 ML VIAL IVP PRN (22:45)
[2016-09-08] MEDS ORDERED: DOCUSATE SODIUM 100 MG CAP PO SCH (22:45)
--- NOTE | 2016-09-08 22:47 | PD ---
Physical Exam Time Seen by Provider: 22:42 Narrative Please refer to previous providers documentation for details on patient's current visit. Data Data Last Documented VS Vital Signs Date Time Temp Pulse Resp B/P Pulse Ox O2 Delivery O2 Flow Rate FiO2 09/08/16 19:42 89 16 97 Room Air 09/08/16 18:13 98.0 156/87 Orders Complete Blood Count With Diff (09/08/16 18:04) Comprehensive Metabolic Panel (09/08/16 18:04) Westergren Sedimentation Rate (09/08/16 18:04) C-Reactive Protein (Crp) (09/08/16 18:04) Ecg Monitoring (09/08/16 18:04) Iv Access Insert/Monitor (09/08/16 18:04) Oximetry (09/08/16 18:04) Sodium Chloride 0.9% Flush (Ns Flush) (09/08/16 18:15) Morphine Inj (Morphine Inj) (09/08/16 18:15) Morphine Inj (Morphine Inj) (09/08/16 19:15) Femur (Ap & Lat/2vws) (09/08/16 ) Ct Abd/Pel W/O Iv Contrast (09/08/16 ) Vancomycin Inj (Vancomycin Inj) (09/08/16 21:00) Piperacil-Tazo 3.375 Gm Premix (Zosyn 3. (09/08/16 21:00) Urinalysis - C+S If Indicated (09/08/16 20:58) Chest, Single Ap (09/08/16 ) Urinary Catheter Management DONAL.Q8H (09/08/16 21:59) Admit Order (Ed Use Only) (09/08/16 22:24) Labs Laboratory Tests Test 09/08/16 09/08/16 18:15 21:00 White Blood Count 6.4 TH/MM3 Red Blood Count 3.75 MIL/MM3 Hemoglobin 9.6 GM/DL Hematocrit 29.4 % Mean Corpuscular Volume 78.4 FL Mean Corpuscular Hemoglobin 25.6 PG Mean Corpuscular Hemoglobin 32.7 % Concent Red Cell Distribution Width 23.4 % Platelet Count 448 TH/MM3 Mean Platelet Volume 6.6 FL Neutrophils (%) (Auto) 71.9 % Lymphocytes (%) (Auto) 12.8 % Monocytes (%) (Auto) 10.9 % Eosinophils (%) (Auto) 3.3 % Basophils (%) (Auto) 1.1 % Neutrophils # (Auto) 4.6 TH/MM3 Lymphocytes # (Auto) 0.8 TH/MM3 Monocytes # (Auto) 0.7 TH/MM3 Eosinophils # (Auto) 0.2 TH/MM3 Basophils # (Auto) 0.1 TH/MM3 CBC Comment AUTO DIFF Differential Comment AUTO DIFF CONFIRMED Platelet Estimate HIGH Platelet Morphology Comment NORMAL Erythrocyte Sedimentation Rate 105 mm/hr Sodium Level 135 MEQ/L Potassium Level 4.6 MEQ/L Chloride Level 100 MEQ/L Carbon Dioxide Level 26.0 MEQ/L Anion Gap 9 MEQ/L Blood Urea Nitrogen 19 MG/DL Creatinine 0.77 MG/DL Estimat Glomerular Filtration 71 ML/MIN Rate Random Glucose 120 MG/DL Calcium Level 9.3 MG/DL Total Bilirubin 0.4 MG/DL Aspartate Amino Transf 19 U/L (AST/SGOT) Alanine Aminotransferase 28 U/L (ALT/SGPT) Alkaline Phosphatase 125 U/L C-Reactive Protein 11.00 MG/DL Total Protein 7.0 GM/DL Albumin 2.4 GM/DL Urine Color YELLOW Urine Turbidity CLEAR Urine pH 6.5 Urine Specific [place] 1.012 Urine Protein NEG mg/dL Urine Glucose (UA) NEG mg/dL Urine Ketones NEG mg/dL Urine Occult Blood NEG Urine Nitrite NEG Urine Bilirubin NEG Urine Urobilinogen LESS THAN 2.0 MG/DL Urine Leukocyte Esterase NEG Urine RBC LESS THAN 1 /hpf Urine Squamous Epithelial <1 /hpf Cells Microscopic Urinalysis Comment CULT NOT INDICATED MDM Medical Record Reviewed: Yes Supervised Visit with JOSE CARLOS: No Narrative Course Patient was initially seen and evaluated by my attending physician Dr. Kumar. CBC is with moderate anemia 9.6. No leukocytosis. ESR is 105. Sodium is 135. BUN is 19. GFR 71. CRP is 11. Urinalysis is unremarkable.. Femur x-ray is status post above the right knee amputation. Question old fracture involving the right superior pubic rami. Chest x-rays without acute disease. CT imaging of the abdomen and pelvis shows a probable pathologic fracture involving the right pubic symphysis. This needs to be correlated with patient's medical history of cancer. There is a nondisplaced fracture involving the inferior right pubic ramus and a nondisplaced fractures through the right and left sacrum. These could indicate insufficiency fractures. I discussed the patient with Dr. Kaur who requests inpatient admission. Diagnosis Primary Impression: Pathological fracture, pelvis, initial encounter for fracture Additional Impressions: Sacral fracture Qualified Code: S32.10XA - Closed fracture of sacrum, unspecified portion of sacrum, initial encounter Femur fracture, right Qualified Code: S72.401A - Closed fracture of distal end of right femur, unspecified fracture morphology, initial encounter H/O above knee amputation Qualified Code: Z89.611 - H/O above knee amputation, right Intractable pain Admitting Information Admitting Physician Requests: Admit Condition: Stable Chelsea Aguilera Sep 08, 2016 22:47
[2016-09-08] MEDS ORDERED: cloNIDine HCL 0.1 MG TAB PO PRN (23:00)
[2016-09-08] MEDS ORDERED: Vancomycin Consult Pharmacy 1 EA XX SCH (23:00)
[2016-09-09] MEDS ORDERED: PIPERACIL-TAZO 3.375 GM PREMIX 50 ML IV SCH
[2016-09-09] MEDS: PANTOPRAZOLE SODIUM 40 MG VIAL IV PUSH SCH ×2 (00:04→20:05)
[2016-09-09] MEDS ORDERED: ZOLPIDEM TARTRATE 5 MG TAB PO PRN (01:00)
[2016-09-09] MEDS: ZOLPIDEM TARTRATE 5 MG TAB PO PRN ×2 (01:09→20:06)
[2016-09-09] MEDS: SODIUM CHLOR 0.9% 1000 ML INJ 1,000 ML IV SCH ×2 (01:13→20:06)
[2016-09-09 01:57] VITALS: BP 128/74; PULSE 106; RESP 18; TEMP 98.1; O2SAT 97
[2016-09-09] MEDS: PIPERACIL-TAZO 3.375 GM PREMIX 50 ML IV SCH ×3 (02:50→16:38)
[2016-09-09 05:29] VITALS: BP 125/59; PULSE 108; RESP 18; TEMP 98.1; O2SAT 96
[2016-09-09 07:29] VITALS: BP 137/65; PULSE 107; RESP 19; TEMP 97.8; O2SAT 92
[2016-09-09] MEDS: SODIUM CHLORIDE 0.9% FLUSH 5 ML FLUSH FLUSH SCH ×2 (08:38→20:06)
[2016-09-09] MEDS: ENOXAPARIN SODIUM 40 MG/0.4 ML SYRINGE SQ SCH (08:39)
[2016-09-09] MEDS: MORPHINE SULFATE 8 MG/ML INJ IV PUSH PRN ×2 (08:39→23:44)
[2016-09-09] MEDS: DOCUSATE SODIUM 100 MG CAP PO SCH ×2 (08:39→20:05)
[2016-09-09 09:27] LABS: BASOPHIL % 0.5 % (0.0-2.0); EOSINOPHIL # 0.3 TH/MM3 (0-0.4); EOSINOPHIL % 3.8 % (0.0-4.0); LYMPH % 6.2 % (9.0-44.0); LYMPHOCYTE # 0.5 TH/MM3 (1.0-4.8); MEAN CELL VOLUME 77.6 FL (80.0-100.0); MEAN CORPUSCULAR HEMOGLOBIN 25.8 PG (27.0-34.0); MEAN CORPUSCULAR HGB CONC 33.2 % (32.0-36.0); MONO % 5.7 % (0.0-8.0); NEUT % 83.8 % (16.0-70.0); PLATELET COUNT 445 TH/MM3 (150-450); RED BLOOD COUNT 3.48 MIL/MM3 (4.00-5.30); RED CELL DISTRIBUTION WIDTH 22.9 % (11.6-17.2); WHITE BLOOD COUNT 8.3 TH/MM3 (4.0-11.0)
[2016-09-09 09:30] LABS: HEMO FLAGS AUTO DIFF
[2016-09-09 09:50] LABS: BICARBONATE 25.1 MEQ/L (21.0-32.0); POTASSIUM 4.2 MEQ/L (3.5-5.1)
--- NOTE | 2016-09-09 10:20 | MH ---
cc: ABUNDIO LAZCANO MD DATE OF ADMISSION 09/08/2016 CHIEF COMPLAINT Altered mental status and severe generalized pain. HISTORY OF PRESENT ILLNESS Raeann Sahu is an 85-year-old female who lives at [facility]. She has had generalized decline since moving into the assisted living facility. She lives there with her . 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 She initially was at [facility] and subsequent ended up at [facility]. 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 She has reported a history of mild dementia. X-rays were done at the facility, however, this week she had worsening of her abdominal pain and pelvic pain. She was calling out and screaming. She was subsequently transported to [facility]. She was found to have pelvic and sacral fractures an elevated CRP. She was given vancomycin and Zosyn in the emergency room. I was thus called for admission. The patient was seen in the emergency room. She is alert, however, in severe pain when turned. She is calm when she is not manipulated. I was called for insomnia medication as requested per the son. The son was asking for something to help her sleep and to give her something for the pain. PAST MEDICAL HISTORY 1. Squamous cell cancer of the right lower extremity. 2. Osteomyelitis the right lower extremity. 3. Anemia 4. Constipation 5. Neuropathy 6. Stage II pressure ulcer in the sacral region 7. Falls PAST SURGICAL HISTORY Right above-knee amputation by Dr. Ballard on July 08, 2016. REVIEW OF SYSTEMS Severe sacral and abdominal pain. Altered mental status due to pain and increasing agitation over the last two weeks. Negative 14-point review of systems otherwise. MEDICATIONS Medications are Colace 100 mg b.i.d. . FAMILY HISTORY She reports mother and father had some cardiac disease. She thinks. Otherwise noncontributory. SOCIAL HISTORY No alcohol, tobacco or illicit drug usage. She is [employer]. She is retired and lives in [facility] with her . IMAGING STUDIES Femur x-ray shows stable post right above-knee amputation and chest x-ray shows no acute disease, old right rib fractures, diffuse osteopenia. Pelvic CT shows pathologic fracture involving the right pubic symphysis, nondisplaced fracture the right pubic ramus, nondisplaced fracture to the right and left sacrum. LABORATORY DATA Hemoglobin 9.6, platelets are 448, WBCs normal. Sodium 135, BUN 19, creatinine normal, glucose 120, alk phos 125, CRP 11, albumin 2.4. PHYSICAL EXAM VITALS: Temperature 97.8, blood pressure is 137/65, pulse 107, respiration 19, pulse ox 92% on room air. GENERAL: She is an alert elderly female. She is laying flat. She becomes very tearful and agitated due to pain when rolled. HEENT: Oropharynx is clear. NECK: Supple. No lymphadenopathy. CHEST: Clear. No wheezes, rales, crackles or coughing. CARDIOVASCULAR: Regular rate and rhythm. No murmurs, rubs, clicks or gallops. ABDOMEN: Soft, tender in all crandall. PELVIC: Tender on palpation of the sacrum and iliac crest. Normoactive bowel sounds. No rebound or guarding. No masses. EXTREMITIES: A healed right AKA incision. Left lower extremity is well-perfused with normal pulses. Skin is clear. NEUROLOGIC: A and O times two. She knows that it is 2016 and that she is in [place]. ASSESSMENT 1. Right pubic symphysis pathologic fracture. 2. Right pubic ramus fracture. 3. Sacral fractures bilaterally. 4. Squamous cell carcinoma of the right lower extremity status post amputation. 5. Osteomyelitis of the right lower extremity status post amputation. 6. Hyponatremia 7. Dehydration 8. Hyperglycemia 9. Elevated LFTs 10. Elevated C-reactive protein 11. Hypoalbuminemia 12. Anemia of chronic disease PLAN 1. Admit to observation. 2. Infectious disease consult 3. Orthopedic consult 4. Regular diet 5. Check a CK level 6. Check a.m. labs including CBC and BMP 7. IV Zosyn 8. IV vancomycin 9. Normal saline at 30 mL/hr. 10. Colace 100 b.i.d. 11. DVT prophylaxis with Lovenox 40 daily 12. Protonix 40 IV daily 13. Blood cultures 14. Telemetry 15. PT 16. OT DISPOSITION Hopefully we will be able to discharge back to [facility]. The patient will need to get her pain under control and this is likely a nonsurgical issue. Follow up her CRP levels. Echocardiogram. Abundio Lazcano MD RP/DJPb /8:09 AM /9:06 AM
[2016-09-09 10:25] LABS: SCAN/DIFF AUTO DIFF CONFIRMED
--- NOTE | 2016-09-09 10:55 | PD.ORT.PN ---
Subjective Subjective Remarks FULL CONSULT NOTE TO FOLLOW no c/o. family at bedside Objective Vitals Vital Signs Date Time Temp Pulse Resp B/P Pulse Ox O2 Delivery O2 Flow Rate FiO2 09/09/16 07:29 97.8 107 19 137/65 92 09/09/16 05:29 98.1 108 18 125/59 96 09/09/16 01:57 98.1 106 18 128/74 97 09/09/16 00:46 21 09/08/16 23:12 16 09/08/16 22:45 94 16 121/59 97 Room Air 09/08/16 19:42 89 16 97 Room Air 09/08/16 19:28 16 09/08/16 19:25 95 16 98 Room Air 09/08/16 18:13 98.0 87 20 156/87 97 I/O 09/08/16 09/08/16 09/08/16 09/09/16 09/09/16 09/09/16 07:00 15:00 23:00 07:00 15:00 23:00 Output Total 200 ml Balance -200 ml Output Urine Total 200 ml # Voids 1 Result Diagram: 09/09/16 0900 09/09/16 0900 Objective Remarks RLE: bka stump, TTP anterior pelvic brim and posterior SI areas bilaterally. SILT distally. LLE: good hip ROM. neg log roll, SILT distally. Assessment & Plan Assessment and Plan right pub rami pathologic fx right inferior rami fx bilateral sacral fragility fx Nonop treatment WBAT BLE I recommend oncology consult. Rami fx seems pathologic. f/u ortho outpatient in 2 weeks. ok to dc Jeremy Cueto Jr., MD Sep 09, 2016 10:55
[2016-09-09 11:26] VITALS: BP 104/54; PULSE 91; RESP 18; TEMP 96.3; O2SAT 94
[2016-09-09 14:57] VITALS: BP 116/62; PULSE 90; RESP 17; TEMP 96.5; O2SAT 93
--- NOTE | 2016-09-09 17:08 | EC ---
Study Study Date:09/09/2016 STUDY CONCLUSIONS SUMMARY - Left ventricle: The cavity size was normal. Wall thickness was normal. Systolic function was normal. The estimated ejection fraction was in the range of 55% to 60%. Wall motion was normal; there were no regional wall motion abnormalities. Doppler parameters are consistent with abnormal left ventricular relaxation (grade 1 diastolic dysfunction). - Aortic valve: Valve area: 2.72cm^2 (Vmax). - Mitral valve: Calcified annulus. - Tricuspid valve: Mild regurgitation. If LV function is below 40, please consider prescribing an ACEI or ARB or document rationale for non-use. PROCEDURE DATA STUDY STATUS: Elective. Procedure: Transthoracic echocardiography. Image quality was good. Scanning was performed from the parasternal, apical, and subcostal acoustic windows. Study completion: The patient tolerated the procedure well. Transthoracic echocardiography. M-mode, complete 2D, complete spectral Doppler, and color Doppler. Height: Height: 65in. Weight: Weight: 131.7lb. Body mass index: BMI: 22kg/m^2. Body surface area: BSA: 1.66m^2. Patient status: Inpatient. CARDIAC ANATOMY LEFT VENTRICLE: The cavity size was normal. Wall thickness was normal. Systolic function was normal. The estimated ejection fraction was in the range of 55% to 60%. Wall motion was normal; there were no regional wall motion abnormalities. Doppler parameters are consistent with abnormal left ventricular relaxation (grade 1 diastolic dysfunction). AORTIC VALVE: Trileaflet; normal thickness, mildly calcified leaflets. Doppler: Transvalvular velocity was within the normal range. There was no stenosis. No regurgitation. Valve area: 2.72cm^2 (Vmax). Indexed valve area: 1.64cm^2/m^2 (Vmax). AORTA: Aortic root: The aortic root was normal in size. MITRAL VALVE: Calcified annulus. Doppler: Transvalvular velocity was within the normal range. There was no evidence for stenosis. Trace to mild regurgitation. Valve area by pressure half-time: 4.07cm^2. Indexed valve area by pressure half-time: 2.45cm^2/m^2. LEFT ATRIUM: The atrium was normal in size. RIGHT VENTRICLE: The cavity size was normal. Wall thickness was normal. PULMONIC VALVE: Doppler: Transvalvular velocity was within the normal range. There was no evidence for stenosis. No regurgitation. TRICUSPID VALVE: Not well visualized. Structurally normal valve. Doppler: Transvalvular velocity was within the normal range. Mild regurgitation. Peak gradient: 32mm Hg (D). PULMONARY ARTERY: The main pulmonary artery was normal-sized. Systolic pressure was within the normal range. RIGHT ATRIUM: The atrium was normal in size. PERICARDIUM: There was no pericardial effusion. SYSTEMIC VEINS: Inferior vena cava: The vessel was normal in size. Patient weight: 131.7lb _Ejection fraction:_ 65-75% _Fractional shortening:_ 32% up to 5Kg 5-11.5Kg 11.6-22.9Kg 23-45Kg 45-57Kg Aortic Root 7-13 <17 13-22 17-27 17-27 LA diam 6-13 <23 24-38 33-47 37-40 RVID 10-17 7-15 7-15 7-18 8-17 LVIDd 12-22 <32 24-38 33-47 37-40 LVPW 2-4 3-6 5-7 6-8 7-8 IVS 2-4 3-6 5-7 6-8 7-8 BASIC MEASUREMENTS ADULT NORMAL Left ventricle LV internal dimension, ED, chordal *36.9 mm 43-52 level, PLAX LV internal dimension, ES, chordal 26.8 mm 23-38 level, PLAX Fractional shortening, chordal level, *27 % >29 PLAX LV posterior wall thickness, ED 8.61 mm IVS/LVPW ratio, ED 1 <1.3 Ventricular septum Septal thickness, ED 8.64 mm Aortic valve Leaflet separation 16 mm 15-26 Left atrium Anterior-posterior dimension 27 mm Anterior-posterior dimension index 1.63 cm/m^2 <2.2 Right ventricle RV internal dimension, ED, PLAX 22.9 mm 19-38 BASIC MEASUREMENTS ADULT NORMAL Aortic valve Leaflet separation 16 mm 15-26 Aorta Root diameter, ED 31 mm 20-37 DOPPLER MEASUREMENTS ADULT NORMAL Aortic valve Peak velocity, S 126 cm/s Valve area, Vmax 2.72 cm^2 Valve area index, Vmax 1.64 cm^2/m^2 Mitral valve Peak E-wave velocity 63.7 cm/s Peak A-wave velocity 92.8 cm/s Pressure half-time 54 ms Peak E/A ratio 0.7 Valve area, pressure half-time 4.07 cm^2 Valve area index, pressure half-time 2.45 cm^2/m^2 Tricuspid valve Peak gradient, D 32 mm Hg Maximal inflow velocity 282 cm/s Systemic veins Estimated CVP 10 mm Hg Pulmonic valve Peak velocity, S 100 cm/s LEGEND: Mean values are shown as u=mean value. Asterisk (*) sandoval values outside specified normal range. Prepared and signed by Earl Hernandez [id number]
[2016-09-09] MEDS: ACETAMINOPHEN/HYDROcodone 325 MG/5 MG TAB PO PRN (17:59)
--- NOTE | 2016-09-09 18:19 | PD.ID.CON ---
History of Present Illness Service ID Consult Requested By Reason for Consult Evaluation and Mment of Elevated CRP ? osteomyelitis of pathological fractures or amputation site infection. Primary Care Physician Abundio Kaur MD Diagnoses: History of Present Illness Ms. Raeann Sahu is an 85-year-old female who lives at [facility].She has had generalized decline since moving into the assisted living facility per review of her PCP notes as well as discussion with her son. She lives there with her at the [facility]. 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 Post amputation patient did not need surgery as it was resection was deemed beyond site of infection. She has reported a history of mild dementia. X-rays were done at the facility, however, this week she had worsening of her abdominal pain and pelvic pain. She was calling out and screaming. She was subsequently transported to [facility]. She was found to have pelvic and sacral fractures an elevated CRP. She was given vancomycin and Zosyn in the emergency room. Upon discussion with the son he would not like to be aggressive at this point. He informed me of the DNR status on file. I let RN know to call to address code status. I then offered palliative care services to help with decision making. I also offered Oncology consult to see if he would like to pursue any options offered by them. He reports patient has had no fever, chills , night sweats and her amputation site is healing well. He again emphasized that his goal is to make her comfortable. ID consult was placed to evaluate and manage elevated CRP. I explained to patients son that non infectious causes can cause elevated CRP such as fractures , malignancy, mets to bones and it is a non specific marker. Based on clinical history does not appear to be of infectious etiology but that we will follow blood cultures. I would not like to order any tests at this point until palliative care as well as oncology have seen these patients. Review of Systems ROS Limitations: Altered Mental Status (Dementia) Past Family Social History Allergies: Coded Allergies: No Known Allergies (Unverified , 09/08/16) Past Medical History osteomyelitis of left LE s/p amputation. Squamous cell skin cancer Anemia Constipation Neuropathy Stage II pressure ulcer in the sacral region Falls Past Surgical History s/p AKA in Jun 2016 by . Reported Medications Reported Meds & Active Scripts Active Milk of Magnesia Liq (Magnesium Hydroxide) 400 Mg/5 Ml Susp 30 Ml PO DAILY PRN 10 Days Dok (Docusate Sodium) 100 Mg Cap 100 Mg PO BID 30 Days Vitamin C (Ascorbic Acid) 500 Mg Tab 500 Mg PO DAILY 30 Days Acetaminophen 325 Mg Tab 650 Mg PO Q4H PRN Wheelchair (Device) 1 Mis Mis 1 Ea .ROUTE DIRECTED Active Ordered Medications Current Medications Medications (Trade) Dose Ordered Sig/Jackie Route Start Time Stop Time Status Last Admin (NS 1000 ml Inj) 1,000 ml @ 30 mls/hr Q24H IV 09/08/16 22:44 09/09/16 01:13 (NS Flush) 2 ml UNSCH PRN FLUSH 09/08/16 22:45 (NS Flush) 2 ml BID FLUSH 09/09/16 09:00 09/09/16 08:38 (Tylenol) 650 mg Q4H PRN PO 09/08/16 22:45 (Zofran Inj) 4 mg Q6H PRN IVP 09/08/16 22:45 (Dulcolax Supp) 10 mg DAILY PRN NC 09/08/16 22:45 (Milk Of Magnesia Liq) 30 ml Q12H PRN PO 09/08/16 22:45 (Senokot) 17.2 mg Q12H PRN PO 09/08/16 22:45 (Lovenox Inj) 40 mg Q24H SQ 09/09/16 09:00 09/09/16 08:39 (Narcan Inj) 0.4 mg UNSCH PRN IV 09/08/16 22:45 (Colace) 100 mg Q12HR PO 09/09/16 09:00 09/09/16 08:39 ([place] 5-325 Mg) 1 tab Q4H PRN PO 09/08/16 23:00 09/09/16 17:59 (Catapres) 0.1 mg Q6H PRN PO 09/08/16 23:00 (Protonix Inj) 40 mg HS IV PUSH 09/08/16 23:00 09/09/16 00:04 Morphine Sulfate 5 mg 5 mg Q4H PRN IV PUSH 09/08/16 23:00 09/09/16 08:39 Pharmacy Profile Note 0 ml @ 0 mls/hr UNSCH XX 09/08/16 23:00 (Zosyn 3.375 Gm Premix) 50 ml @ 100 mls/hr Q6H IV 09/09/16 03:00 09/09/16 16:38 (Ambien) 5 mg HS PRN PO 09/09/16 00:45 09/09/16 01:09 Zolpidem Tartrate 5 mg 5 mg HS PRN PO 09/09/16 01:00 (Vancomycin Inj/ NS 250 ml Inj) 250 ml @ 250 mls/hr Q24H IV 09/09/16 22:00 Miscellaneous Information SPECIFIC LAB TO BE DRAWN:VANCOMYCIN TROUGH DATE TO... ONCE ONCE XX 09/11/16 21:45 09/11/16 21:46 Family History reviewed. Patient had a twin sister who had dementia and of infections. Social History Recently started living in a [facility] with since infections etc in Jun 2016. No alcohol No smoking No drugs use in past. Her PCP is . Physical Exam Vital Signs Vital Signs Date Time Temp Pulse Resp B/P Pulse Ox O2 Delivery O2 Flow Rate FiO2 09/09/16 14:57 96.5 90 17 116/62 93 09/09/16 11:26 96.3 91 18 104/54 94 09/09/16 08:44 16 09/09/16 07:29 97.8 107 19 137/65 92 09/09/16 05:29 98.1 108 18 125/59 96 09/09/16 01:57 98.1 106 18 128/74 97 09/09/16 00:46 21 09/08/16 23:12 16 09/08/16 22:45 94 16 121/59 97 Room Air 09/08/16 19:42 89 16 97 Room Air 09/08/16 19:28 16 09/08/16 19:25 95 16 98 Room Air Physical Exam GENERAL: Thin built poorly nourished female patient, in no apparent distress. SKIN: No rashes, ecchymoses or lesions. Cool and dry. HEAD: Atraumatic. Normocephalic. No temporal or scalp tenderness. EYES: Pupils equal round and reactive. Extraocular motions intact. No scleral icterus. No injection or drainage. ENT: Nose without bleeding, purulent drainage or septal hematoma. Throat without erythema, tonsillar hypertrophy or exudate. Uvula midline. Airway patent. NECK: Trachea midline. Supple, nontender, no meningeal signs. CARDIOVASCULAR: HS audible. RESPIRATORY: Clear to auscultation. Breath sounds equal bilaterally. No wheezes , rales, or rhonchi. GASTROINTESTINAL: Abdomen soft, non-tender, nondistended. MUSCULOSKELETAL: Right BKA site with no e.o infection. NEUROLOGICAL: Awake and alert. Grossly non focal. Repeats sentences at times. Psych: cooperative IV line sites with no e/o infection. Laboratory Laboratory Tests Test 09/08/16 09/09/16 21:00 09:00 Urine Color YELLOW Urine Turbidity CLEAR Urine pH 6.5 Urine Specific Simpson 1.012 Urine Protein NEG Urine Glucose (UA) NEG Urine Ketones NEG Urine Occult Blood NEG Urine Nitrite NEG Urine Bilirubin NEG Urine Urobilinogen LESS THAN 2.0 Urine Leukocyte Esterase NEG Urine RBC LESS THAN 1 Urine Squamous Epithelial <1 Cells Microscopic Urinalysis Comment CULT NOT INDICATED White Blood Count 8.3 Red Blood Count 3.48 Hemoglobin 9.0 Hematocrit 27.0 Mean Corpuscular Volume 77.6 Mean Corpuscular Hemoglobin 25.8 Mean Corpuscular Hemoglobin 33.2 Concent Red Cell Distribution Width 22.9 Platelet Count 445 Mean Platelet Volume 6.7 Neutrophils (%) (Auto) 83.8 Lymphocytes (%) (Auto) 6.2 Monocytes (%) (Auto) 5.7 Eosinophils (%) (Auto) 3.8 Basophils (%) (Auto) 0.5 Neutrophils # (Auto) 7.0 Lymphocytes # (Auto) 0.5 Monocytes # (Auto) 0.5 Eosinophils # (Auto) 0.3 Basophils # (Auto) 0.0 CBC Comment AUTO DIFF Differential Comment AUTO DIFF CONFIRMED Sodium Level 134 Potassium Level 4.2 Chloride Level 101 Carbon Dioxide Level 25.1 Anion Gap 8 Blood Urea Nitrogen 15 Creatinine 0.76 Estimat Glomerular Filtration 72 Rate Random Glucose 98 Calcium Level 9.4 Total Creatine Kinase 37 Date/Time Procedure Status Source Growth 09/09/16 09:06 Aerobic Blood Culture Received Blood Peripheral Pending 09/09/16 09:06 Anaerobic Blood Culture Received Blood Peripheral Pending Result Diagram: 09/09/16 0900 09/09/16 0900 Imaging Last Impressions Femur X-Ray 09/08/16 0000 Signed Impressions: Service Date/Time: Thursday, September 08, 2016 19:50 - CONCLUSION: 1. Status post above the knee amputation. 2. Questionable fracture involving the right superior pubic rami. Odin Romero MD Chest X-Ray 09/08/16 0000 Signed Impressions: Service Date/Time: Thursday, September 08, 2016 21:06 - CONCLUSION: No acute disease. Odin Romero MD Abdomen/Pelvis CT 09/08/16 0000 Signed Impressions: Service Date/Time: Thursday, September 08, 2016 21:21 - CONCLUSION: 1. There appears to be a pathologic fracture involving the right pubic symphysis. This needs to be correlated with patient's medical history for cancer. 2. Nondisplaced fracture involving the inferior right pubic ramus. 3. Nondisplaced fractures through the right and left sacrum. These could indicate insufficiency fractures. Efren Milner MD Assessment and Plan Assessment and Plan Elevated CRP h/o osteomyelitis s/o Right BKA. Now with multiple fractures some appear pathologic ? cancer related. h/o recurrent falls. h/o squamous cell skin cancer with local resection. right pub rami pathologic fx right inferior rami fx bilateral sacral fragility fx Recs: ID consult was placed to evaluate and manage elevated CRP. I explained to patients son that non infectious causes can cause elevated CRP such as fractures , malignancy, mets to bones and it is a non specific marker. Based on clinical history does not appear to be of infectious etiology but that we will follow blood cultures. I would not like to order any tests at this point until palliative care as well as oncology have seen these patients. DC Vanco IV DC Zosyn IV Follow cultures Follow clinically d/w patients son code status and other care plan. Consult palliative care please see patient after 11 am so son can be part of meeting. Consult Oncology (h/o squamous cell Ca now with pathologic fractures ? cancer related) Time spent in excess of 60 mins. Critical thinking and decision making, coordination of care. Abbey Brar MD Sep 09, 2016 18:19 Consult Oncology (h/o squamous cell Ca now with pathologic fractures ? cancer related) Time spent in excess of 60 mins. Critical thinking and decision making, coordination of care. Abbey Brar MD Sep 09, 2016 18:19
--- NOTE | 2016-09-09 21:42 | PD.CONS ---
cc: Jeremy Cueto Jr., MD HPI Service Orthopedic Surgeons Consult Requested By Primary Care Physician Abundio Kaur MD Admission Diagnosis Pelvic fracture; saccral fracture; intractable pain; ?metastases Diagnoses: Chief Complaint: #1 RIGHT pelvic rim stable Pathologic fracture. 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 She presented to the emergency department after 2 week history of RIGHT low back and hip pain. 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 She underwent a right leg above-knee amputation. She has reported a history of mild dementia. She presented with persistent worsening RIGHT hip pain. No history of a fall recently. Imaging performed in the emergency department revealed pathology fracture of the RIGHT superior rami with a fragility fracture bilateral sacral alar. Patient has mild dementia does not cooperate well with exam. She responds to painful stimuli with RIGHT lower extremity range of motion and tenderness to anterior pelvic rim. PAST MEDICAL HISTORY 1. Squamous cell cancer of the right lower extremity. 2. Osteomyelitis the right lower extremity. 3. Anemia 4. Constipation 5. Neuropathy 6. Stage II pressure ulcer in the sacral region 7. Falls PAST SURGICAL HISTORY Right above-knee amputation by Dr. Ballard on July 08, 2016. REVIEW OF SYSTEMS Severe sacral and abdominal pain. Altered mental status due to pain and increasing agitation over the last two weeks. Negative 14-point review of systems otherwise. MEDICATIONS Medications are Colace 100 mg b.i.d. . FAMILY HISTORY She reports mother and father had some cardiac disease. She thinks. Otherwise noncontributory. SOCIAL HISTORY No alcohol, tobacco or illicit drug usage. 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 IMAGING STUDIES Femur x-ray shows stable post right above-knee amputation and chest x-ray shows no acute disease, old right rib fractures, diffuse osteopenia. Review of Systems Constitutional: COMPLAINS OF: Fatigue, Weight loss Endocrine: DENIES: Abnorml menstrual pattern, Heat/cold intolerance, Polydipsia , Polyuria, Polyphagia Eyes: DENIES: Blurred vision, Diplopia, Eye inflammation, Eye pain, Vision loss , Photosensitivity, Double Vision Respiratory: DENIES: Apneas, Cough, Snoring, Wheezing, Hemoptysis, Sputum production, Shortness of breath Cardiovascular: DENIES: Chest pain, Palpitations, Syncope, Dyspnea on Exertion , PND, Lower Extremity Edema, Orthopnea, Claudication Gastrointestinal: DENIES: Abdominal pain, Black stools, Bloody stools, Constipation, Diarrhea, Nausea, Vomiting, Difficulty Swallowing, Anorexia Hematologic/lymphatic: COMPLAINS OF: Bruising Past Family Social History Allergies: Coded Allergies: No Known Allergies (Unverified , 09/08/16) Active Ordered Medications Current Medications Medications (Trade) Dose Ordered Sig/Jackie Route Start Time Stop Time Status Last Admin (NS 1000 ml Inj) 1,000 ml @ 30 mls/hr Q24H IV 09/08/16 22:44 09/09/16 20:06 (NS Flush) 2 ml UNSCH PRN FLUSH 09/08/16 22:45 (NS Flush) 2 ml BID FLUSH 09/09/16 09:00 09/09/16 20:06 (Tylenol) 650 mg Q4H PRN PO 09/08/16 22:45 (Zofran Inj) 4 mg Q6H PRN IVP 09/08/16 22:45 (Dulcolax Supp) 10 mg DAILY PRN [place] 09/08/16 22:45 (Milk Of Magnesia Liq) 30 ml Q12H PRN PO 09/08/16 22:45 (Senokot) 17.2 mg Q12H PRN PO 09/08/16 22:45 (Lovenox Inj) 40 mg Q24H SQ 09/09/16 09:00 09/09/16 08:39 (Narcan Inj) 0.4 mg UNSCH PRN IV 09/08/16 22:45 (Colace) 100 mg Q12HR PO 09/09/16 09:00 09/09/16 20:05 (Jamieson 5-325 Mg) 1 tab Q4H PRN PO 09/08/16 23:00 09/09/16 17:59 (Catapres) 0.1 mg Q6H PRN PO 09/08/16 23:00 (Protonix Inj) 40 mg HS IV PUSH 09/08/16 23:00 09/09/16 20:05 (Morphine Inj) 5 mg Q4H PRN IV PUSH 09/08/16 23:00 09/09/16 08:39 (Ambien) 5 mg HS PRN PO 09/09/16 00:45 09/09/16 20:06 (Ambien) 5 mg HS PRN PO 09/09/16 01:00 Miscellaneous Information SPECIFIC LAB TO BE DRAWN:VANCOMYCIN TROUGH DATE TO... ONCE ONCE XX 09/11/16 21:45 09/11/16 21:46 Reported Meds & Active Scripts Active Milk of Magnesia Liq (Magnesium Hydroxide) 400 Mg/5 Ml Susp 30 Ml PO DAILY PRN 10 Days Dok (Docusate Sodium) 100 Mg Cap 100 Mg PO BID 30 Days Vitamin C (Ascorbic Acid) 500 Mg Tab 500 Mg PO DAILY 30 Days Acetaminophen 325 Mg Tab 650 Mg PO Q4H PRN Wheelchair (Device) 1 Mis Mis 1 Ea .ROUTE DIRECTED Physical Exam Vital Signs Vital Signs Date Time Temp Pulse Resp B/P Pulse Ox O2 Delivery O2 Flow Rate FiO2 09/09/16 19:44 16 09/09/16 14:57 96.5 90 17 116/62 93 09/09/16 11:26 96.3 91 18 104/54 94 09/09/16 08:44 16 09/09/16 07:29 97.8 107 19 137/65 92 09/09/16 05:29 98.1 108 18 125/59 96 09/09/16 01:57 98.1 106 18 128/74 97 09/09/16 00:46 21 09/08/16 23:12 16 09/08/16 22:45 94 16 121/59 97 Room Air Physical Exam Demented. Head: Neck normocephalic atraumatic. Trachea midline. Pulmonary: normal respiratory effort. Abdomen: soft nontender Musculoskeletal exam Bilateral upper extremityneurovascular intact. No deformities. Bilateral lower extremity-grossly neurovascularly intact. RIGHT leg above-knee indication stump. Soft compartments. Palpable pulses and negative Homans on the LEFT. Laboratory Laboratory Tests Test 09/09/16 09:00 White Blood Count 8.3 Red Blood Count 3.48 Hemoglobin 9.0 Hematocrit 27.0 Mean Corpuscular Volume 77.6 Mean Corpuscular Hemoglobin 25.8 Mean Corpuscular Hemoglobin 33.2 Concent Red Cell Distribution Width 22.9 Platelet Count 445 Mean Platelet Volume 6.7 Neutrophils (%) (Auto) 83.8 Lymphocytes (%) (Auto) 6.2 Monocytes (%) (Auto) 5.7 Eosinophils (%) (Auto) 3.8 Basophils (%) (Auto) 0.5 Neutrophils # (Auto) 7.0 Lymphocytes # (Auto) 0.5 Monocytes # (Auto) 0.5 Eosinophils # (Auto) 0.3 Basophils # (Auto) 0.0 CBC Comment AUTO DIFF Differential Comment AUTO DIFF CONFIRMED Sodium Level 134 Potassium Level 4.2 Chloride Level 101 Carbon Dioxide Level 25.1 Anion Gap 8 Blood Urea Nitrogen 15 Creatinine 0.76 Estimat Glomerular Filtration 72 Rate Random Glucose 98 Calcium Level 9.4 Total Creatine Kinase 37 Date/Time Procedure Status Source Growth 09/09/16 09:06 Aerobic Blood Culture Received Blood Peripheral Pending 09/09/16 09:06 Anaerobic Blood Culture Received Blood Peripheral Pending Result Diagram: 09/09/16 0900 09/09/16 0900 Imaging Last 72 hours Impressions Femur X-Ray 09/08/16 0000 Signed Impressions: Service Date/Time: Thursday, September 08, 2016 19:50 - CONCLUSION: 1. Status post above the knee amputation. 2. Questionable fracture involving the right superior pubic rami. Odin Romero MD Chest X-Ray 09/08/16 0000 Signed Impressions: Service Date/Time: Thursday, September 08, 2016 21:06 - CONCLUSION: No acute disease. Odin Romero MD Abdomen/Pelvis CT 09/08/16 0000 Signed Impressions: Service Date/Time: Thursday, September 08, 2016 21:21 - CONCLUSION: 1. There appears to be a pathologic fracture involving the right pubic symphysis. This needs to be correlated with patient's medical history for cancer. 2. Nondisplaced fracture involving the inferior right pubic ramus. 3. Nondisplaced fractures through the right and left sacrum. These could indicate insufficiency fractures. Efren Milner MD Assessment & Plan Assessment and Plan 85-year-old female history of dementia h/o carcinoma presented with a 2 week history of RIGHT hip pain and RIGHT low back pain. 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 X-ray examination revealed a pathologic fracture of the RIGHT superior rami as well as fragility fracture bilateral sacral ala. The rami fractures are pathologic in nature, likely metastatic. I therefore recommend consult to oncology. Her low back pain is secondary to bilateral sacral nondisplaced fractures likely from severe osteoporosis. We'll treat both injuries nonoperatively. I Recommend physical therapy with bilateral lower extremity range of motion. OOBed with assistance, weightbearing as tolerated bilateral lower extremity. I discussed my treatment plan with the son as well as risks, benefits and alternatives of nonoperative treatment. Follow-up 2 weeks with orthopaedics.- Dr. Cueto All questions were answered. Than you for consult. Please call with questions. Jeremy Cueto Jr., MD Sep 09, 2016 21:42
[2016-09-09] MEDS ORDERED: VANCOMYCIN 1,000 MG/NS 250 ML IV SCH ×2 (22:00)
--- NOTE | 2016-09-09 23:16 | MB ---
cc: HENRIETTA ARENAS DATE OF CONSULTATION: 09/09/2016 REASON FOR CONSULTATION: History of squamous cell carcinoma of the skin with what appears to be a pathologic fracture involving bone. PATIENT PROFILE The patient is not able to give me a good history. She is confused. She does not understand that she is in the hospital and after trying to examine her for a short period of time she asked me to leave. 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 She has a son. I do not know what other children she has. There is no smoking or alcohol history. HPI A note dated July 06, 2016, indicated that the patient presented to the hospital for A right lower extremity lesion. the lesion was present for approximately two or three years and then it became infected. She received prayer treatments and apparently this did not help the problem. When she presented, the right tibia had extensive drainage and a 14 cm open wound. She underwent a right above-knee amputation on 07/08/2016, which showed invasive poorly differentiated squamous cell carcinoma with associated acute osteomyelitis. The margins of resection were negative for tumor. The patient today was screaming in pain. She was transported to the [place] emergency room where she underwent a CT scan of the abdomen and pelvis on 09/08/2016. This showed a pathologic fracture involving the right pubic symphysis. There was nondisplaced fractures involving the inferior pubic ramus. There were fractures involving the left sacrum and right sacrum as well. The patient is unaware of what transpired today. She was also not aware of the fact that she had an amputation until I pointed it out to her. PAST SURGICAL HISTORY. 1. 07/08/2016 right [id number] amputation 2. 07/09/2015 repair of left distal radial fracture. PAST MEDICAL HISTORY 1. Squamous cell carcinoma of the right lower extremity as described above with osteomyelitis. 2. History of stage II pressure ulcer involving the sacrum. 3. Some type of memory problems. MEDICATIONS Prior to admission: 1. Tylenol to. 2. Vitamin C 3. Docusate. 4. Magnesium. ALLERGIES: None known. FAMILY HISTORY: Unknown. REVIEW OF SYSTEMS: The patient voices no complaints except she has tenderness of the right pubic ramus when examined. Other than that she is momentarily calm and then becomes agitated with questions on the exam. PHYSICAL EXAMINATION: Reveals a woman initially calm and then in the middle of the evaluation asked me to leave and became agitated. There was a nurse present with her as she apparently tried to pull out IVs and has required 24 hour supervision. VITAL SIGNS: Blood pressure 116/60, respiratory rate 18, pulse 80 afebrile, O2 sat 93%. Head: Normocephalic. Sclera and conjunctivae normal. Breasts: Without masses. Heart: Regular rhythm. Lungs: Clear. Abdomen: Soft. No hepatosplenomegaly. Extremities: Patient has had a right [id number] amputation. She has tenderness in the right pubic ramus. She moves all extremities. 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 The CT scan of the pelvis is highly suggestive of a pathologic fracture involving the right pubic symphysis. The differential would be: 1. Metastatic disease from the recent skin which is most likely. 2. Osteomyelitis which is possible but less likely. In order to obtain a diagnosis, she would require a needle biopsy which should be easy to do and pathology can be sent as well as cultures. I do not think she is inclined to do this. If she has a pathologic fracture, she is not a candidate for chemotherapy. This would be an incurable disease and I suspect that radiation would be of limited benefit. If this were an infection, which is less likely, then one could consider a prolonged course of antibiotics. She has been seen by Infectious Disease and they do not feel that this is an infection. I attempted to call the patient's son, Damian Cali, and left a message that I suspect that his mother a has metastatic disease to the right pubic symphysis. I indicated that the easiest way to obtain a diagnosis would be needle biopsy, as this is fairly superficial and accessible. At the same time, I indicated that his mother would not likely want to pursue this and that Hospice would be appropriate. I will return if desired. At the present time, I have nothing further to add. MD ANNALISE Bray/ROBERTO /9:09 PM /10:15 PM MARGARITA
[2016-09-10] VITALS (8 sets, daily range): BP systolic 108–165; BP diastolic 63–80; PULSE 81–116; RESP 17–20; TEMP 95.9–98.1; O2SAT 93–98
[2016-09-10] MEDS ORDERED: HALOPERIDOL 2 MG TAB PO PRN (04:15)
[2016-09-10 06:04] LABS: AUTOMATED NEUTROPHIL # 4.5 TH/MM3 (1.8-7.7); BASOPHIL % 0.6 % (0.0-2.0); EOSINOPHIL # 0.5 TH/MM3 (0-0.4); EOSINOPHIL % 8.5 % (0.0-4.0); HEMATOCRIT 27.6 % (35.0-46.0); LYMPH % 8.5 % (9.0-44.0); LYMPHOCYTE # 0.5 TH/MM3 (1.0-4.8); MEAN CELL VOLUME 77.4 FL (80.0-100.0); MEAN CORPUSCULAR HGB CONC 33.6 % (32.0-36.0); MONO % 7.4 % (0.0-8.0); PLATELET COUNT 441 TH/MM3 (150-450); RED BLOOD COUNT 3.57 MIL/MM3 (4.00-5.30); RED CELL DISTRIBUTION WIDTH 22.4 % (11.6-17.2); WHITE BLOOD COUNT 6.1 TH/MM3 (4.0-11.0)
[2016-09-10 06:13] LABS: HEMO FLAGS AUTO DIFF
[2016-09-10 06:25] LABS: BICARBONATE 22.4 MEQ/L (21.0-32.0); POTASSIUM 3.9 MEQ/L (3.5-5.1)
[2016-09-10 08:12] LABS: SCAN/DIFF AUTO DIFF CONFIRMED
[2016-09-10] MEDS: MORPHINE SULFATE 8 MG/ML INJ IV PUSH PRN (09:18)
[2016-09-10] MEDS: SODIUM CHLORIDE 0.9% FLUSH 5 ML FLUSH FLUSH SCH ×2 (09:20→20:37)
[2016-09-10] MEDS: ENOXAPARIN SODIUM 40 MG/0.4 ML SYRINGE SQ SCH (09:22)
[2016-09-10] MEDS: DOCUSATE SODIUM 100 MG CAP PO SCH ×2 (09:22→20:37)
--- NOTE | 2016-09-10 11:16 | HHI.FPPN ---
Subjective Remarks called HS FOR HALDOL PT OK WITH PAIN MEDS TAKING MS IV D/W RN Objective Vitals Vital Signs Date Time Temp Pulse Resp B/P Pulse Ox O2 Delivery O2 Flow Rate FiO2 09/10/16 09:25 18 09/10/16 07:43 95.9 116 18 146/80 94 09/10/16 04:29 97.8 96 18 108/69 95 09/10/16 01:09 81 09/09/16 19:44 16 09/09/16 14:57 96.5 90 17 116/62 93 09/09/16 11:26 96.3 91 18 104/54 94 Result Diagram: 09/10/16 0504 09/10/16 0504 Objective Remarks GENERAL: SKIN: Warm and dry. HEAD: Atraumatic. Normocephalic. EYES: Pupils equal and round. No scleral icterus. No injection or drainage. ENT: No nasal bleeding or discharge. Mucous membranes pink and moist. NECK: Trachea midline. No JVD. CARDIOVASCULAR: Regular rate and rhythm. RESPIRATORY: No accessory muscle use. Clear to auscultation. Breath sounds equal bilaterally. GASTROINTESTINAL: Abdomen soft, non-tender, nondistended. Hepatic and splenic margins not palpable. MUSCULOSKELETAL: Extremities without clubbing, cyanosis, or edema. No obvious deformities. NEUROLOGICAL: Awake and alert. No obvious cranial nerve deficits. Motor grossly within normal limits. 1 out of 5 muscle strength in the arms and legs. Normal speech. PSYCHIATRIC: Appropriate mood and affect; insight and judgment normal. Medications and IVs Current Medications Medications (Trade) Dose Ordered Sig/Jackie Route Start Time Stop Time Status Last Admin (NS 1000 ml Inj) 1,000 ml @ 30 mls/hr Q24H IV 09/08/16 22:44 09/09/16 20:06 (NS Flush) 2 ml UNSCH PRN FLUSH 09/08/16 22:45 09/09/16 23:45 (NS Flush) 2 ml BID FLUSH 09/09/16 09:00 09/10/16 09:20 (Tylenol) 650 mg Q4H PRN PO 09/08/16 22:45 (Zofran Inj) 4 mg Q6H PRN IVP 09/08/16 22:45 (Dulcolax Supp) 10 mg DAILY PRN [place] 09/08/16 22:45 (Milk Of Magnesia Liq) 30 ml Q12H PRN PO 09/08/16 22:45 (Senokot) 17.2 mg Q12H PRN PO 09/08/16 22:45 (Lovenox Inj) 40 mg Q24H SQ 09/09/16 09:00 09/10/16 09:22 (Narcan Inj) 0.4 mg UNSCH PRN IV 09/08/16 22:45 (Colace) 100 mg Q12HR PO 09/09/16 09:00 09/10/16 09:22 ([place] 5-325 Mg) 1 tab Q4H PRN PO 09/08/16 23:00 09/09/16 17:59 (Catapres) 0.1 mg Q6H PRN PO 09/08/16 23:00 (Protonix Inj) 40 mg HS IV PUSH 09/08/16 23:00 09/09/16 20:05 (Morphine Inj) 5 mg Q4H PRN IV PUSH 09/08/16 23:00 09/10/16 09:18 (Ambien) 5 mg HS PRN PO 09/09/16 00:45 09/09/16 20:06 (Ambien) 5 mg HS PRN PO 09/09/16 01:00 Miscellaneous Information SPECIFIC LAB TO BE DRAWN:VANCOMYCIN TROUGH DATE TO... ONCE ONCE XX 09/11/16 21:45 09/11/16 21:46 (Haldol) 4 mg Q4H PRN PO 09/10/16 04:15 A/P Assessment and Plan 1. Right pubic symphysis pathologic fracture. 2. Right pubic ramus fracture. 3. Sacral fractures bilaterally. 4. Squamous cell carcinoma of the right lower extremity status post amputation. 5. Osteomyelitis of the right lower extremity status post amputation. 6. Hyponatremia 7. Dehydration 8. Hyperglycemia 9. Elevated LFTs 10. Elevated C-reactive protein 11. Hypoalbuminemia 12. Anemia of chronic disease PLAN observation. Infectious disease consult Orthopedic consult Regular diet CBC and BMP Normal saline at 30 mL/hr. Colace 100 b.i.d. DVT prophylaxis with Lovenox 40 daily Protonix 40 IV daily Blood cultures Telemetry PT OT PT OBS FOR TWO MN, EXPECT 2 TO 3 MORE D INPT. EXPECT LIKELY HOSPICE. Abundio Kaur MD Sep 10, 2016 11:16 Follow up her CRP levels. Echocardiogram. Abundio Kaur MD Sep 10, 2016 11:16
[2016-09-10] MEDS ORDERED: PILL SPLITTER OTHER PRN (15:30)
--- NOTE | 2016-09-10 17:10 | PD.CONS ---
Consult Service Palliative Care . Consult Requested By Dr. Lisbet Brar . Primary Care Physician Abundio Kaur MD . Reason for Consultation a. To assist with evaluation and management of symptoms including: pain b. To assist medical decision maker(s) with: better understanding of current medical conditions; weighing benefits/burdens of medical treatment options; making medical treatment decisions. . 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 The patient is a member of the [employer] and had not seen physicians for many years. She developed a wound on her right lower extremity about 2-3 years ago which became uncomfortable and grew in size. She had nursing care from the [facility] and avoided seeking medical help. Ultimately, the [facility] nursing staff felt they could do a little more for the wound and the patient's son at that time called [facility]. Hospice had taken care of the patient's identical twin sister who had a history of squamous cell carcinoma resulting in a large wound on her face. When hospice arrived at the patient's home on 07/06/16 they reported a large gaping wound on the right lower extremity where the foot was attached only by skin. Most of the bone had been eaten away. The patient was in a great deal of pain. Options were discussed and the son opted to pursue aggressive care. She was admitted to this hospital on 07/06/16. She underwent an AKA by Dr. Sandra on 07/08/16. Blood cultures were negative but wound culture came back showing Proteus mirabilis and Strep Not A,B,D. pathology of the specimen showed invasive poorly differentiated squamous cell cancer associated with acute osteomyelitis. The margins were negative for cancer. The patient recovered successfully from the surgery and was discharged to [facility] for rehabilitation on 07/11/16. In rehabilitation the patient received 2 units of packed red blood cells when hemoglobin dropped to 7.2. On 07/22/16 a stage II coccyx sore was noted and wound care was consulted. Also in rehabilitation she developed a urinary tract infection with culture growing Klebsiella. She was discharged to [facility] to be with her on 08/05/16. The patient's son reports that Ms. Sahu began complaining of pain with movement approximately 7-10 days ago. This increased in intensity. There was one recorded fall from the commode. However, the patient had been complaining of pain even before this fall. There may have been more falls but it is possible that the patient's would have just helped her up and not reported the fall to anyone. Because of the patient's dementia it has been hard for her to quantify or qualify the pain. The patient can carry on a conversation but her dementia is such that she is unaware most of the time that she has lost her right leg. 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 The patient's , who is of the same jojo, has been more reluctant to use those medications. Vital signs in the emergency department were as follows: Temperature 90.8; pulse 89; respiratory rate 16; blood pressure 156/87; pulse oximetry 97% on room air Physical examination by the emergency sales department supervisor showed the following : The patient had intermittent pain when lightly palpated. Pelvis was felt to be stable. The stump of her right sided rnahv-gyw-iids amputation was clean, dry, and intact. The remainder of the exam was unremarkable. Initial diagnostic testing revealed the following: * CBC showed a PBC 6.4; hemoglobin 9.6; platelet count 448 * Chemistry panel showed sodium 135; potassium 4.6; chloride 100; CO2 26; anion gap 9; BUN 19; creatinine 0.77; GFR 71; glucose 120; calcium 9.3 * Liver function studies showed total bilirubin 0.4; AST 19; ALT 28; alkaline phosphatase 125; total protein 7.0; albumin 2.4 * CRP was 11.0 * ESR was 105 * Chest x-ray showed no acute disease. * CT imaging of the abdomen/pelvis revealed a probable pathologic fracture involving the right pubic symphysis. There was also a nondisplaced fracture involving the inferior right pubic ramus and a nondisplaced fracture through the right and left sacrum. * Urinalysis was unremarkable The patient was admitted under the care of Dr. Kaur. Medical oncology and infectious disease was consulted. Both medical oncology and infectious disease felt that the fractures were most likely pathological and less likely to be infectious in nature. Medical oncology recommended that needle biopsy of one of the bony lesions be undertaken to see if this is cancer or infection. Dr. Franco felt that if this were cancer she would not be a candidate for chemotherapy and did not feel she could be helped much by radiation therapy. At time of my visit, the patient is lying still in bed. She is pleasant and smiles. She denies pain. She does not recall ever having pain even though I heard several screens from her room before I had gone in there. I subsequently witnessed screening when she had to be moved to get on and then off the bed hernandez. Long-term memory appears intact though short term memory is quite poor. A review of the medication record shows she used approximately 3 doses of 5 mg IV morphine sulfate over the course of approximately 24 hours. According to nursing pain assessments pain levels fell from #6 down to #1. . Function/Cognitive Trajectory As noted above the patient had a 2-3 year history of a chronic wound in the right lower extremity. The patient had been living with her in her own home up until her hospital admission in June. They did have 24-hour nursing care in their home however for over a year prior to this. The patient is had worsening dementia for a number of years. This has impacted mostly short-term memory. Family believes she has lost about 30 pounds over the last 2-3 years. Appetite had been reasonably good, however, up until a few days prior to this admission. . Review of Systems ROS Limitations: Clinical Condition (patient is unable to provide a reliable review of systems due to her dementia. Review of systems taken as well as possible from medical record and available family.) Constitutional: COMPLAINS OF: Fatigue, Weight loss, Change in appetite, Pain, Generalized weakness, DENIES: Weight gain, Chills Endocrine: DENIES: Heat/cold intolerance, Polydipsia, Polyuria Eyes: DENIES: Blurred vision, Diplopia, Vision loss Ears, nose, mouth, throat: COMPLAINS OF: Hearing loss, DENIES: Throat pain Respiratory: DENIES: Apneas, Cough, Snoring, Wheezing, Hemoptysis, Sputum production, Shortness of breath Cardiovascular: DENIES: Chest pain, Palpitations, Syncope, Lower Extremity Edema Gastrointestinal: DENIES: Abdominal pain, Black stools, Bloody stools, Constipation, Diarrhea, Nausea, Vomiting Genitourinary: DENIES: Urinary frequency, Hematuria, Dysuria Musculoskeletal: COMPLAINS OF: Joint pain, Muscle aches, Back pain, Decreased range of motion Integumentary: COMPLAINS OF: Tumors, DENIES: Rash Hematologic/Lymphatics: COMPLAINS OF: Bruising, History of transfusions Neurologic: DENIES: Headache, Seizures Psychiatric: COMPLAINS OF: Confusion, Agitation, DENIES: Anxiety, Depression Past Family Social History Coded Allergies: No Known Allergies (Unverified , 09/08/16) Past Medical History * Squamous cell cancer right lower extremity * Osteomyelitis right lower extremity * 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 Past Surgical History * Jsaub-ucj-olau amputation for invasive squamous cell cancer and osteomyelitis 07/08/16 . Reported Medications Prehospitalization medications at the assisted living facility included the following: Milk of Magnesia Liq (Magnesium Hydroxide) 400 Mg/5 Ml Susp 30 Ml PO DAILY PRN 10 Days Dok (Docusate Sodium) 100 Mg Cap 100 Mg PO BID 30 Days Vitamin C (Ascorbic Acid) 500 Mg Tab 500 Mg PO DAILY 30 Days Acetaminophen 325 Mg Tab 650 Mg PO Q4H PRN . Current Medications Medications (Trade) Dose Ordered Sig/Jackie Route Start Time Stop Time Status Last Admin (NS 1000 ml Inj) 1,000 ml @ 30 mls/hr Q24H IV 09/08/16 22:44 09/09/16 20:06 (NS Flush) 2 ml UNSCH PRN FLUSH 09/08/16 22:45 09/09/16 23:45 (NS Flush) 2 ml BID FLUSH 09/09/16 09:00 09/10/16 09:20 (Tylenol) 650 mg Q4H PRN PO 09/08/16 22:45 (Zofran Inj) 4 mg Q6H PRN IVP 09/08/16 22:45 (Dulcolax Supp) 10 mg DAILY PRN WA 09/08/16 22:45 (Milk Of Magnesia Liq) 30 ml Q12H PRN PO 09/08/16 22:45 (Senokot) 17.2 mg Q12H PRN PO 09/08/16 22:45 (Lovenox Inj) 40 mg Q24H SQ 09/09/16 09:00 09/10/16 09:22 (Narcan Inj) 0.4 mg UNSCH PRN IV 09/08/16 22:45 (Colace) 100 mg Q12HR PO 09/09/16 09:00 09/10/16 09:22 (Grafton 5-325 Mg) 1 tab Q4H PRN PO 09/08/16 23:00 09/09/16 17:59 (Catapres) 0.1 mg Q6H PRN PO 09/08/16 23:00 (Protonix Inj) 40 mg HS IV PUSH 09/08/16 23:00 09/09/16 20:05 (Morphine Inj) 5 mg Q4H PRN IV PUSH 09/08/16 23:00 09/10/16 09:18 (Ambien) 5 mg HS PRN PO 09/09/16 01:00 (Haldol) 4 mg Q4H PRN PO 09/10/16 04:15 (Dolophine) 2.5 mg Q12HR PO 09/10/16 21:00 (Pill Splitter) 1 ea UNSCH PRN OTHER 09/10/16 15:30 . Family History * The patient has an identical twin sister who developed invasive squamous cell cancer of the head and neck. She also had dementia. She under the care of [facility]. . Substance Use Tobacco: Lifetime nonsmoker Alcohol: Lifetime nondrinker Prescription med abuse: No history of abuse Illicits: No use of illicits . Psychosocial History Ms. Sahu is originally from [place], [place]. She moved to [place] approximately 1959. The patient received a bachelor's degree in business administration from [employer]. She worked for the [employer] briefly. 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 The patient was twice. Her first in 1988. She has been to her second , Negro, for approximately 13 years. Negro is 89 years old and moved into [facility] with her when she was discharged from [facility]. The patient has 2 children. The patient's son, Fredrick Hull, lives locally. The patient's daughter lives in [place]. The patient has 3 grandsons. . Spiritual/Cultural Factors As noted above, the patient is a member of the [employer]. Her current is of the same jojo. Her children were raised in that tradition but are open to all medical treatments. Earlier in her life, the patient seemed adamant about following the jojo in regards to medical treatments. With her recent dementia, she is more accepting of medications including pain medicines. . Living Will: Copy in medical record Health Care Surrogate: Copy in medical record Durable Power of Director Of Nursing: Copy in medical record Date completed: There is a designation of health care surrogacy signed by the patient on 2016. This designates the patient's son, Fredrick, as the health care surrogate. There is a living will/DPOA for healthcare also scanned into the EMR. This is dated 06/19/2015. It designates the patient's , Negro, as the primary health care surrogate, the daughter Kayley as the first alternate surrogate, and son Fredrick as the second alternate surrogate. . Health Care Surrogate(s): There is a designation of health care surrogacy signed by the patient on 2016. This designates the patient's son, Fredrick, as the health care surrogate. There is a living will/DPOA for healthcare also scanned into the EMR. This is dated 06/19/2015. It designates the patient's , Negro, as the primary health care surrogate, the daughter Kayley as the first alternate surrogate, and son Fredrick as the second alternate surrogate. . Documented care wishes: The patient's living will is a standard [place] living will and indicates the patient would not want life prolonging procedures should she be found to have a terminal condition, end-stage condition, or persistent vegetative state. . Today's verbally stated goals: Due to her dementia, the patient is unable to state health care goals and preferences at this time. It is unlikely she will be able to do so in the future. . Family/friends goals: The patient's son and qhlcdgve-tn-sca are at the bedside. They seem mostly oriented toward "comfort care" at this time. They want to confer with the patient's daughter and with the patient's before making final decisions. . Ethical and Legal Issues The patient is incapacitated to make her own health care decisions primarily due to her dementia. It is unlikely she will regain capacity in the future. As noted above, the patient's most recent directive assigns health care surrogacy to her son, Fredrick. There is an older signed power of estate planning attorney document giving health care surrogacy to the patient's husbandHarry. . Physical Exam Vital Signs Date Time Temp Pulse Resp B/P Pulse Ox O2 Delivery O2 Flow Rate FiO2 09/10/16 11:32 96.3 92 18 130/69 95 09/10/16 09:25 18 09/10/16 07:43 95.9 116 18 146/80 94 09/10/16 04:29 97.8 96 18 108/69 95 09/10/16 01:09 81 09/09/16 19:44 16 . Exam CONSTITUTIONAL/GENERAL: This is a pale, thin, frail appearing female in no distress while lying still. She yells out in pain when being moved. She is able to make small talk but has little to no insight into her illness. She is not aware that her right leg has been amputated. TUBES/LINES/DRAINS: Peripheral IV. SKIN: No jaundice, rashes. . Ecchymoses on upper extremities and on right side of head.. No wounds seen anteriorly. Skin temperature appropriate. Not diaphoretic. HEAD: There is a bruise in the right temporal area. Normocephalic. EYES: Pupils equal and round and reactive. Extraocular motions intact. No scleral icterus. No injection or drainage. Fundi not examined. ENT: Hearing grossly normal. Nose without bleeding or purulent drainage. Throat without visible erythema, exudates, masses, or lesions. NECK: Trachea midline. Supple, nontender. No palpable thyroid enlargement or nodularity. CARDIOVASCULAR: Regular rate and rhythm without murmurs, gallops, or rubs. No JVD. Peripheral pulses symmetric. RESPIRATORY/CHEST: Symmetric, unlabored respirations. Clear to auscultation. Breath sounds equal bilaterally. No wheezes, rales, or rhonchi. GASTROINTESTINAL: Abdomen soft, non-tender, nondistended. No hepato-splenomegaly , or palpable masses. No guarding. Bowel sounds present and active. GENITOURINARY: Without palpable bladder distension. MUSCULOSKELETAL: The patient is undergone right oqjrh-mtb-wzcm amputation. Stump appears well-healed. Extremities otherwise without clubbing, cyanosis, or edema. No calf tenderness on left. No mottling or clubbing. There is pain in the hip/pelvic area with almost any movement. LYMPHATICS: No palpable cervical or supraclavicular adenopathy. NEUROLOGICAL: Awake and alert. Motor and sensory grossly within normal limits. Follows basic commands. No insight into her own illness. Can make small talk but is unaware that she is undergone an amputation and unaware why she is in the hospital. Moves all extremities. PSYCHIATRIC: No obvious anxiety/depression. No apparent hallucinations or other psychotic thought process. . Diagnostic Tests Laboratory Laboratory Tests Test 09/08/16 09/08/16 09/09/16 09/10/16 18:15 21:00 09:00 05:04 White Blood Count 6.4 TH/MM3 8.3 TH/MM3 6.1 TH/MM3 (4.0-11.0) (4.0-11.0) (4.0-11.0) Red Blood Count 3.75 MIL/MM3 3.48 MIL/MM3 3.57 MIL/MM3 (4.00-5.30) (4.00-5.30) (4.00-5.30) Hemoglobin 9.6 GM/DL 9.0 GM/DL 9.3 GM/DL (11.6-15.3) (11.6-15.3) (11.6-15.3) Hematocrit 29.4 % 27.0 % 27.6 % (35.0-46.0) (35.0-46.0) (35.0-46.0) Mean Corpuscular Volume 78.4 FL 77.6 FL 77.4 FL (80.0-100.0) (80.0-100.0) (80.0-100.0) Mean Corpuscular Hemoglobin 25.6 PG 25.8 PG 26.0 PG (27.0-34.0) (27.0-34.0) (27.0-34.0) Mean Corpuscular Hemoglobin 32.7 % 33.2 % 33.6 % Concent (32.0-36.0) (32.0-36.0) (32.0-36.0) Red Cell Distribution Width 23.4 % 22.9 % 22.4 % (11.6-17.2) (11.6-17.2) (11.6-17.2) Platelet Count 448 TH/MM3 445 TH/MM3 441 TH/MM3 (150-450) (150-450) (150-450) Mean Platelet Volume 6.6 FL 6.7 FL 6.6 FL (7.0-11.0) (7.0-11.0) (7.0-11.0) Neutrophils (%) (Auto) 71.9 % 83.8 % 75.0 % (16.0-70.0) (16.0-70.0) (16.0-70.0) Lymphocytes (%) (Auto) 12.8 % 6.2 % 8.5 % (9.0-44.0) (9.0-44.0) (9.0-44.0) Monocytes (%) (Auto) 10.9 % 5.7 % (0.0-8.0) 7.4 % (0.0-8.0) (0.0-8.0) Eosinophils (%) (Auto) 3.3 % (0.0-4.0) 3.8 % (0.0-4.0) 8.5 % (0.0-4.0) Basophils (%) (Auto) 1.1 % (0.0-2.0) 0.5 % (0.0-2.0) 0.6 % (0.0-2.0) Neutrophils # (Auto) 4.6 TH/MM3 7.0 TH/MM3 4.5 TH/MM3 (1.8-7.7) (1.8-7.7) (1.8-7.7) Lymphocytes # (Auto) 0.8 TH/MM3 0.5 TH/MM3 0.5 TH/MM3 (1.0-4.8) (1.0-4.8) (1.0-4.8) Monocytes # (Auto) 0.7 TH/MM3 0.5 TH/MM3 0.4 TH/MM3 (0-0.9) (0-0.9) (0-0.9) Eosinophils # (Auto) 0.2 TH/MM3 0.3 TH/MM3 0.5 TH/MM3 (0-0.4) (0-0.4) (0-0.4) Basophils # (Auto) 0.1 TH/MM3 0.0 TH/MM3 0.0 TH/MM3 (0-0.2) (0-0.2) (0-0.2) CBC Comment AUTO DIFF AUTO DIFF AUTO DIFF Differential Comment AUTO DIFF AUTO DIFF AUTO DIFF CONFIRMED CONFIRMED CONFIRMED Platelet Estimate HIGH (NORMAL) Platelet Morphology Comment NORMAL (NORMAL) Erythrocyte Sedimentation Rate 105 mm/hr (0-30) Sodium Level 135 MEQ/L 134 MEQ/L 137 MEQ/L (136-145) (136-145) (136-145) Potassium Level 4.6 MEQ/L 4.2 MEQ/L 3.9 MEQ/L (3.5-5.1) (3.5-5.1) (3.5-5.1) Chloride Level 100 MEQ/L 101 MEQ/L 103 MEQ/L (98-107) (98-107) (98-107) Carbon Dioxide Level 26.0 MEQ/L 25.1 MEQ/L 22.4 MEQ/L (21.0-32.0) (21.0-32.0) (21.0-32.0) Anion Gap 9 MEQ/L (5-15) 8 MEQ/L (5-15) 12 MEQ/L (5-15) Blood Urea Nitrogen 19 MG/DL (7-18) 15 MG/DL (7-18) 13 MG/DL (7-18) Creatinine 0.77 MG/DL 0.76 MG/DL 0.54 MG/DL (0.50-1.00) (0.50-1.00) (0.50-1.00) Estimat Glomerular Filtration 71 ML/MIN (>89) 72 ML/MIN (>89) 107 ML/MIN Rate (>89) Random Glucose 120 MG/DL 98 MG/DL 92 MG/DL (74-106) (74-106) (74-106) Calcium Level 9.3 MG/DL 9.4 MG/DL 9.6 MG/DL (8.5-10.1) (8.5-10.1) (8.5-10.1) Total Bilirubin 0.4 MG/DL (0.2-1.0) Aspartate Amino Transf 19 U/L (15-37) (AST/SGOT) Alanine Aminotransferase 28 U/L (10-53) (ALT/SGPT) Alkaline Phosphatase 125 U/L (45-117) C-Reactive Protein 11.00 MG/DL (0.00-0.30) Total Protein 7.0 GM/DL (6.4-8.2) Albumin 2.4 GM/DL (3.4-5.0) Urine Color YELLOW (YELLW/STRAW) Urine Turbidity CLEAR (CLEAR) Urine pH 6.5 (5.0-8.5) Urine Specific Stanton 1.012 (1.002-1.035) Urine Protein NEG mg/dL (NEG-TRACE) Urine Glucose (UA) NEG mg/dL (NEG) Urine Ketones NEG mg/dL (NEG) Urine Occult Blood NEG (NEG) Urine Nitrite NEG (NEG) Urine Bilirubin NEG (NEG) Urine Urobilinogen LESS THAN 2.0 MG/DL (LESS THAN 2.0) Urine Leukocyte Esterase NEG (NEG) Urine RBC LESS THAN 1 /hpf (0-3) Urine Squamous Epithelial <1 /hpf (0-5) Cells Microscopic Urinalysis Comment CULT NOT INDICATED Total Creatine Kinase 37 U/L (26-192) . Result Diagram: 09/10/16 0504 09/10/16 0504 Microbiology Microbiology Date/Time Procedure Status Source Growth 09/09/16 09:00 Aerobic Blood Culture - Preliminary Resulted Blood Peripheral NO GROWTH IN 1 DAY 09/09/16 09:00 Anaerobic Blood Culture - Preliminary Resulted Blood Peripheral NO GROWTH IN 1 DAY 09/09/16 09:06 Aerobic Blood Culture - Preliminary Resulted Blood Peripheral NO GROWTH IN 1 DAY 09/09/16 09:06 Anaerobic Blood Culture - Preliminary Resulted Blood Peripheral NO GROWTH IN 1 DAY . Imaging Last Impressions Femur X-Ray 09/08/16 0000 Signed Impressions: Service Date/Time: Thursday, September 08, 2016 19:50 - CONCLUSION: 1. Status post above the knee amputation. 2. Questionable fracture involving the right superior pubic rami. Odin Romero MD Chest X-Ray 09/08/16 0000 Signed Impressions: Service Date/Time: Thursday, September 08, 2016 21:06 - CONCLUSION: No acute disease. Odin Romero MD Abdomen/Pelvis CT 09/08/16 0000 Signed Impressions: Service Date/Time: Thursday, September 08, 2016 21:21 - CONCLUSION: 1. There appears to be a pathologic fracture involving the right pubic symphysis. This needs to be correlated with patient's medical history for cancer. 2. Nondisplaced fracture involving the inferior right pubic ramus. 3. Nondisplaced fractures through the right and left sacrum. These could indicate insufficiency fractures. Efren Milner MD . Other * Echocardiogram of 09/09/16 --> estimated ejection fraction was in the range of 55-60%. Wall motion was normal. No regional wall motion abnormalities noted. Grade 1 diastolic dysfunction noted. No significant valvular disease noted. . Patient/Family Conference Present at Family Conference: Patient's son-- Fredrick Hull Son'w -- Louisa Hull . Family Conference Time (mins): 55 Family Conference Location: [facility] Issues Discussed: * Palliative care role, purpose, approach * Additional medical, psychosocial, and spiritual history * Patients general health, functional status, and cognitive changes in the months leading up to the current hospitalization * Patient/family understanding of the current medical problems * Patient/family understanding of prognosis * Patients goals of care as best understood from advance directives and/or conversations and/or values * Current medical treatment options and benefits/burdens of those options * Likely scenarios comparing ongoing aggressive care with a transition to comfort measures only * Questions answered to the best of my ability * Palliative care contact information provided Assessment and Plan Disease Oriented Problem List: (1) Pathological fracture, pelvis, initial encounter for fracture (2) Sacral fracture (3) Dementia (4) H/O above knee amputation Symptom Scale: (1) Intractable pain 0-10 Scale: Unable to quantify Comment: Patient is unable to quantify pain. She screams with movement. Most likely secondary to her pelvic/sacral fractures. . Pertinent Non-Medical Issues Psychosocial: Patient is . She is a resident (with her of 13 years) at [facility] where they moved in July 2016. Son lives locally ; daughter lives in [place] Spiritual: Patient and her are [employer] C[employer]ing [employer]. All non jojo- based medical care has been declined up until recently. Legal: Advance directives are scanned into the EMR Ethical issues impacting care: Patient is incapacitated to make her own health care decisions. . Important Contacts * Damian Wyman (son and HCS) [phone] . 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 Given her jojo beliefs, she is not likely to want aggressive care. If this is cancer, per oncology, she would not be a candidate for chemotherapy and she would not likely benefit from radiation therapy. She is in significant pain with movement and with her dementia she has poor understanding of her predicament. Life expectancy is probably in the order of weeks to months and could be much less if the amount of medicine necessary to address comfort has her eating/ drinking less and more sedated. . Code Status: No Code Plan == Code Status: NO CODE == Decision making: The patient is incapacitated to make her own health care decisions and due to her dementia, is not likely to gain capacity. The most recent health care surrogate designation lists her son, Damian, as the decision maker. There is an older signed power of estate planning attorney document also scanned into the electronic medical record which lists her as the surrogate. It appears there is good communication between family members. Hopefully, the decisions will be based on consensus and these documents will be challenged. == Goals of medical treatment: The patient's son and the son's seem to be leaning toward "comfort care" and hospice. They have a good understanding of options going forward. They want to discuss these options with the patient' s and with the patient's daughter before making a final decision. They hope to be able to make that decision within the next 24 hours or so. They understand that whether this is osteomyelitis or cancer involving the bone the prognosis is poor. == Pain: Pain is mostly "incident pain," which occurs primarily with repositioning. As patient is demented and is unable to remember that she has a fracture she often tries to move on her own exacerbating the problem. Family has requested some scheduled medication. I am starting her on some low-dose methadone at 2.5 mg every 12 hours [id number] to give her a small amount of baseline relief. We'll keep the when necessary nor cool and IV morphine in place for breakthrough pain. We'll continue to reevaluate. Family is aware that the amount of medication necessary to get her truly comfortable may be enough that she is sleeping most of the time and eating/drinking little. == Palliative care we'll continue to follow to assist with symptom management and to further clarify goals of medical treatment as the clinical course evolves. . Time Spent Total Floor Time (mins): 85 (Total floor time included chart review; patient examination; review of advance directives; and above-referenced family meeting.) Face to Face Time (mins): 10 >50% Counseling/Coord of Care: Yes Thank you for the opportunity to participate in the care of Ms. Sahu. . Attestation To help prompt me to consider important information that might be impacting today's encounter and assessment, information from prior notes written by myself or my colleagues may have been "brought forward" into today's note. My signature on this note, however, is an attestation that I personally performed the exam, history, and/or decision-making noted today, and, unless otherwise indicated, the interactions with patient, family, and staff as well as the review of records all occurred today. I also attest that the listed assessment and stated plan reflect my best clinical judgment today based on the combination of historical information, prior notes, and today's exam/ interactions. When time spent is documented, it refers only to time spent today by the signer, or if indicated, combined time spent today by collaborating physician/nurse practitioner. . Camron Alba MD Sep 10, 2016 17:10
[2016-09-10] MEDS: ACETAMINOPHEN/HYDROcodone 325 MG/5 MG TAB PO PRN (18:06)
[2016-09-10] MEDS: PANTOPRAZOLE SODIUM 40 MG VIAL IV PUSH SCH (20:36)
[2016-09-10] MEDS: METHADONE HCL 10 MG TAB PO SCH (20:37)
[2016-09-10] MEDS: SODIUM CHLOR 0.9% 1000 ML INJ 1,000 ML IV SCH (20:38)
[2016-09-11 04:11] VITALS: BP 165/77; PULSE 89; RESP 20; TEMP 98.5; O2SAT 97
[2016-09-11 06:58] LABS: AUTOMATED NEUTROPHIL # 2.5 TH/MM3 (1.8-7.7); EOSINOPHIL # 0.4 TH/MM3 (0-0.4); EOSINOPHIL % 9.1 % (0.0-4.0); HEMATOCRIT 28.7 % (35.0-46.0); LYMPH % 18.9 % (9.0-44.0); LYMPHOCYTE # 0.8 TH/MM3 (1.0-4.8); MEAN CORPUSCULAR HEMOGLOBIN 25.6 PG (27.0-34.0); MEAN CORPUSCULAR HGB CONC 32.8 % (32.0-36.0); MONO % 10.6 % (0.0-8.0); NEUT % 60.4 % (16.0-70.0); PLATELET COUNT 434 TH/MM3 (150-450); RED BLOOD COUNT 3.68 MIL/MM3 (4.00-5.30); RED CELL DISTRIBUTION WIDTH 22.3 % (11.6-17.2); WHITE BLOOD COUNT 4.1 TH/MM3 (4.0-11.0)
[2016-09-11 07:02] LABS: HEMO FLAGS AUTO DIFF
[2016-09-11 07:49] LABS: ACANTHOCYTES OCC (NORMAL); OVALOCYTES 1+ (NORMAL)
[2016-09-11 07:50] LABS: SCAN/DIFF AUTO DIFF CONFIRMED
[2016-09-11 08:00] VITALS: PULSE 91
[2016-09-11 08:23] VITALS: BP 160/76; PULSE 80; RESP 16; TEMP 98; O2SAT 97
[2016-09-11] MEDS: ENOXAPARIN SODIUM 40 MG/0.4 ML SYRINGE SQ SCH (09:02)
[2016-09-11] MEDS: DOCUSATE SODIUM 100 MG CAP PO SCH (09:02)
[2016-09-11] MEDS: SODIUM CHLORIDE 0.9% FLUSH 5 ML FLUSH FLUSH SCH (09:03)
[2016-09-11] MEDS: METHADONE HCL 10 MG TAB PO SCH (09:03)
[2016-09-11 12:12] VITALS: BP 110/57; PULSE 76; RESP 18; TEMP 97.9; O2SAT 96
--- NOTE | 2016-09-11 13:08 | HHI.PR ---
Addendum to Inpatient Note Addendum Reason: Additional Documentation Additional Information d/w family would like hospice consult. Will sign off please call back if any change in plans or questions. I will be OOT from 09/12/16 to 09/19/16. Other ID MDs to cover for me. Abbey Brar MD Sep 11, 2016 13:08
--- NOTE | 2016-09-11 13:32 | HHI.DCPOC ---
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 (3) Stage II pressure ulcer of sacral region (4) Impaired mobility and activities of daily living (5) Poor balance (6) Squamous cell carcinoma Goals to Promote Your Health * To prevent worsening of your condition and complications * To maintain your health at the optimal level Directions to Meet Your Goals Take your medications as prescribed Follow your dietary instruction Follow activity as directed Keep your appointments as scheduled Take your immunizations and boosters as scheduled If your symptoms worsen call your PCP, if no PCP go to Urgent Care Center or Emergency Room Smoking is Dangerous to Your Health. Avoid second hand smoke Call the 24-hour hour crisis hotline for domestic abuse at Abundio Kaur MD Sep 11, 2016 13:32
--- NOTE | 2016-09-11 13:32 | HHI.DCPOC ---
Discharge Care Plan Goals to Promote Your Health * To prevent worsening of your condition and complications * To maintain your health at the optimal level Directions to Meet Your Goals Take your medications as prescribed Follow your dietary instruction Follow activity as directed Keep your appointments as scheduled Take your immunizations and boosters as scheduled If your symptoms worsen call your PCP, if no PCP go to Urgent Care Center or Emergency Room Smoking is Dangerous to Your Health. Avoid second hand smoke Call the 24-hour hour crisis hotline for domestic abuse at Abundio Kaur MD Sep 11, 2016 13:32
[2016-09-11] MEDS: ACETAMINOPHEN/HYDROcodone 325 MG/5 MG TAB PO PRN (14:54)
--- NOTE | 2016-09-11 15:01 | HHI.HCPN ---
Reason for visit a. To assist with evaluation and management of symptoms including: pain b. To assist medical decision maker(s) with: better understanding of current medical conditions; weighing benefits/burdens of medical treatment options; making medical treatment decisions. . Subjective/Interval History Patient is awake and alert at time of my visit. Hired caregiver and son at bedside report that she has appeared more comfortable on the scheduled methadone. Both report she is still painful with movement, but seemed less painful today when trying to sit upright with physical therapy. She has not appeared overly sedated to caregiver or son. A review of the medication record shows that she has not required breakthrough opiates since starting on the scheduled methadone yesterday evening. Though patient is an unreliable historian, she denies SOB. She reports appetite is OK. No other complaints. . Family/friend interactions Son reports he has discussed goals of medical treatment with both the patient's and the patient's daughter. There is no consensus that they do not want to go forward with biopsy as they would not want active treatment for either infection or cancer. Therefore they have decided to go forward with comfort care and would like hospice enrollment. Son would prefer initial placement at the [facility]. I explained that we could do this to help titrate her pain medications. It appears, however, at this time, that we will be able to get her comfortable and at the same time have her awake and alert enough to continue eating. There is a high likelihood she ultimately will need to be transferred out of the care center once medications are optimized. He understands this. If it's feasible, he would like her transferred back to [facility] where she had been living with her . . Advance Directives Living Will: Copy in medical record Health Care Surrogate: Copy in medical record Durable Power of Gang Kn[employer]: Copy in medical record Advance Directive Specifics Date completed: There is a designation of health care surrogacy signed by the patient on 2016. This designates the patient's son, Fredrick, as the health care surrogate. There is a living will/DPOA for healthcare also scanned into the EMR. This is dated 06/19/2015. It designates the patient's , Negro, as the primary health care surrogate, the daughter Kayley as the first alternate surrogate, and son Fredrick as the second alternate surrogate. . Health Care Surrogate(s): There is a designation of health care surrogacy signed by the patient on 2016. This designates the patient's son, Fredrick, as the health care surrogate. There is a living will/DPOA for healthcare also scanned into the EMR. This is dated 06/19/2015. It designates the patient's , Negro, as the primary health care surrogate, the daughter Kayley as the first alternate surrogate, and son Fredrick as the second alternate surrogate. . Documented care wishes: The patient's living will is a standard [place] living will and indicates the patient would not want life prolonging procedures should she be found to have a terminal condition, end-stage condition, or persistent vegetative state. . Significant change in goals: Son reports that he has spoken with the patient's and with the patient' s daughter and all are in agreement to transition to "comfort measures only" and hospice. . Objective Vital Signs Date Time Temp Pulse Resp B/P Pulse Ox O2 Delivery O2 Flow Rate FiO2 09/11/16 12:12 97.9 76 18 110/57 96 09/11/16 08:23 98.0 80 16 160/76 97 09/11/16 08:00 91 09/11/16 04:11 98.5 89 20 165/77 97 09/10/16 23:26 98.1 86 18 165/80 97 09/10/16 21:44 16 09/10/16 21:31 91 09/10/16 20:12 97.7 89 20 127/63 98 09/10/16 19:22 16 09/10/16 16:08 96.2 87 17 149/74 93 . Physical Exam CONSTITUTIONAL/GENERAL: This is a pale, thin, frail appearing female in no distress while lying still. She is able to make small talk but has little to no insight into her illness. TUBES/LINES/DRAINS: Peripheral IV. SKIN: No jaundice, rashes. . Ecchymoses on upper extremities and on right side of head.. No wounds seen anteriorly. Skin temperature appropriate. Not diaphoretic. HEAD: There is a bruise in the right temporal area. Normocephalic. EYES: Pupils equal and round. Extraocular motions intact. No scleral ict NECK: Trachea midline. Supple. CARDIOVASCULAR: Regular rate and rhythm without murmurs, gallops, or rubs. No JVD. RESPIRATORY/CHEST: Symmetric, unlabored respirations. Clear to auscultation. Breath sounds equal bilaterally. No wheezes, rales, or rhonchi. GASTROINTESTINAL: Abdomen soft, non-tender, nondistended. No hepato-splenomegaly , or palpable masses. No guarding. Bowel sounds present and active. GENITOURINARY: Without palpable bladder distension. MUSCULOSKELETAL: The patient has undergone right [id number] amputation. There is pain in the hip/pelvic area with almost any movement. LYMPHATICS: Not examined. NEUROLOGICAL: Awake and alert. Motor and sensory grossly within normal limits. Follows basic commands. Moves all extremities. PSYCHIATRIC: No obvious anxiety/depression. No apparent hallucinations or other psychotic thought process. . Diagnostic Tests Laboratory Laboratory Tests Test 09/08/16 09/08/16 09/09/16 09/10/16 18:15 21:00 09:00 05:04 White Blood Count 6.4 TH/MM3 8.3 TH/MM3 6.1 TH/MM3 (4.0-11.0) (4.0-11.0) (4.0-11.0) Red Blood Count 3.75 MIL/MM3 3.48 MIL/MM3 3.57 MIL/MM3 (4.00-5.30) (4.00-5.30) (4.00-5.30) Hemoglobin 9.6 GM/DL 9.0 GM/DL 9.3 GM/DL (11.6-15.3) (11.6-15.3) (11.6-15.3) Hematocrit 29.4 % 27.0 % 27.6 % (35.0-46.0) (35.0-46.0) (35.0-46.0) Mean Corpuscular Volume 78.4 FL 77.6 FL 77.4 FL (80.0-100.0) (80.0-100.0) (80.0-100.0) Mean Corpuscular Hemoglobin 25.6 PG 25.8 PG 26.0 PG (27.0-34.0) (27.0-34.0) (27.0-34.0) Mean Corpuscular Hemoglobin 32.7 % 33.2 % 33.6 % Concent (32.0-36.0) (32.0-36.0) (32.0-36.0) Red Cell Distribution Width 23.4 % 22.9 % 22.4 % (11.6-17.2) (11.6-17.2) (11.6-17.2) Platelet Count 448 TH/MM3 445 TH/MM3 441 TH/MM3 (150-450) (150-450) (150-450) Mean Platelet Volume 6.6 FL 6.7 FL 6.6 FL (7.0-11.0) (7.0-11.0) (7.0-11.0) Neutrophils (%) (Auto) 71.9 % 83.8 % 75.0 % (16.0-70.0) (16.0-70.0) (16.0-70.0) Lymphocytes (%) (Auto) 12.8 % 6.2 % 8.5 % (9.0-44.0) (9.0-44.0) (9.0-44.0) Monocytes (%) (Auto) 10.9 % 5.7 % (0.0-8.0) 7.4 % (0.0-8.0) (0.0-8.0) Eosinophils (%) (Auto) 3.3 % (0.0-4.0) 3.8 % (0.0-4.0) 8.5 % (0.0-4.0) Basophils (%) (Auto) 1.1 % (0.0-2.0) 0.5 % (0.0-2.0) 0.6 % (0.0-2.0) Neutrophils # (Auto) 4.6 TH/MM3 7.0 TH/MM3 4.5 TH/MM3 (1.8-7.7) (1.8-7.7) (1.8-7.7) Lymphocytes # (Auto) 0.8 TH/MM3 0.5 TH/MM3 0.5 TH/MM3 (1.0-4.8) (1.0-4.8) (1.0-4.8) Monocytes # (Auto) 0.7 TH/MM3 0.5 TH/MM3 0.4 TH/MM3 (0-0.9) (0-0.9) (0-0.9) Eosinophils # (Auto) 0.2 TH/MM3 0.3 TH/MM3 0.5 TH/MM3 (0-0.4) (0-0.4) (0-0.4) Basophils # (Auto) 0.1 TH/MM3 0.0 TH/MM3 0.0 TH/MM3 (0-0.2) (0-0.2) (0-0.2) CBC Comment AUTO DIFF AUTO DIFF AUTO DIFF Differential Comment AUTO DIFF AUTO DIFF AUTO DIFF CONFIRMED CONFIRMED CONFIRMED Platelet Estimate HIGH (NORMAL) Platelet Morphology Comment NORMAL (NORMAL) Erythrocyte Sedimentation Rate 105 mm/hr (0-30) Sodium Level 135 MEQ/L 134 MEQ/L 137 MEQ/L (136-145) (136-145) (136-145) Potassium Level 4.6 MEQ/L 4.2 MEQ/L 3.9 MEQ/L (3.5-5.1) (3.5-5.1) (3.5-5.1) Chloride Level 100 MEQ/L 101 MEQ/L 103 MEQ/L (98-107) (98-107) (98-107) Carbon Dioxide Level 26.0 MEQ/L 25.1 MEQ/L 22.4 MEQ/L (21.0-32.0) (21.0-32.0) (21.0-32.0) Anion Gap 9 MEQ/L (5-15) 8 MEQ/L (5-15) 12 MEQ/L (5-15) Blood Urea Nitrogen 19 MG/DL (7-18) 15 MG/DL (7-18) 13 MG/DL (7-18) Creatinine 0.77 MG/DL 0.76 MG/DL 0.54 MG/DL (0.50-1.00) (0.50-1.00) (0.50-1.00) Estimat Glomerular Filtration 71 ML/MIN (>89) 72 ML/MIN (>89) 107 ML/MIN Rate (>89) Random Glucose 120 MG/DL 98 MG/DL 92 MG/DL (74-106) (74-106) (74-106) Calcium Level 9.3 MG/DL 9.4 MG/DL 9.6 MG/DL (8.5-10.1) (8.5-10.1) (8.5-10.1) Total Bilirubin 0.4 MG/DL (0.2-1.0) Aspartate Amino Transf 19 U/L (15-37) (AST/SGOT) Alanine Aminotransferase 28 U/L (10-53) (ALT/SGPT) Alkaline Phosphatase 125 U/L (45-117) C-Reactive Protein 11.00 MG/DL (0.00-0.30) Total Protein 7.0 GM/DL (6.4-8.2) Albumin 2.4 GM/DL (3.4-5.0) Urine Color YELLOW (YELLW/STRAW) Urine Turbidity CLEAR (CLEAR) Urine pH 6.5 (5.0-8.5) Urine Specific [place] 1.012 (1.002-1.035) Urine Protein NEG mg/dL (NEG-TRACE) Urine Glucose (UA) NEG mg/dL (NEG) Urine Ketones NEG mg/dL (NEG) Urine Occult Blood NEG (NEG) Urine Nitrite NEG (NEG) Urine Bilirubin NEG (NEG) Urine Urobilinogen LESS THAN 2.0 MG/DL (LESS THAN 2.0) Urine Leukocyte Esterase NEG (NEG) Urine RBC LESS THAN 1 /hpf (0-3) Urine Squamous Epithelial <1 /hpf (0-5) Cells Microscopic Urinalysis Comment CULT NOT INDICATED Total Creatine Kinase 37 U/L (26-192) Test 09/11/16 06:00 White Blood Count 4.1 TH/MM3 (4.0-11.0) Red Blood Count 3.68 MIL/MM3 (4.00-5.30) Hemoglobin 9.4 GM/DL (11.6-15.3) Hematocrit 28.7 % (35.0-46.0) Mean Corpuscular Volume 78.0 FL (80.0-100.0) Mean Corpuscular Hemoglobin 25.6 PG (27.0-34.0) Mean Corpuscular Hemoglobin 32.8 % Concent (32.0-36.0) Red Cell Distribution Width 22.3 % (11.6-17.2) Platelet Count 434 TH/MM3 (150-450) Mean Platelet Volume 6.4 FL (7.0-11.0) Neutrophils (%) (Auto) 60.4 % (16.0-70.0) Lymphocytes (%) (Auto) 18.9 % (9.0-44.0) Monocytes (%) (Auto) 10.6 % (0.0-8.0) Eosinophils (%) (Auto) 9.1 % (0.0-4.0) Basophils (%) (Auto) 1.0 % (0.0-2.0) Neutrophils # (Auto) 2.5 TH/MM3 (1.8-7.7) Lymphocytes # (Auto) 0.8 TH/MM3 (1.0-4.8) Monocytes # (Auto) 0.4 TH/MM3 (0-0.9) Eosinophils # (Auto) 0.4 TH/MM3 (0-0.4) Basophils # (Auto) 0.0 TH/MM3 (0-0.2) CBC Comment AUTO DIFF Differential Comment AUTO DIFF CONFIRMED Ovalocytes 1+ (NORMAL) Acanthocytes OCC (NORMAL) Sodium Level 137 MEQ/L (136-145) Potassium Level 4.0 MEQ/L (3.5-5.1) Chloride Level 104 MEQ/L (98-107) Carbon Dioxide Level 23.0 MEQ/L (21.0-32.0) Anion Gap 10 MEQ/L (5-15) Blood Urea Nitrogen 12 MG/DL (7-18) Creatinine 0.46 MG/DL (0.50-1.00) Estimat Glomerular Filtration 129 ML/MIN Rate (>89) Random Glucose 89 MG/DL (74-106) Calcium Level 9.8 MG/DL (8.5-10.1) . Result Diagram: 09/11/16 0600 09/11/16 0600 Microbiology Microbiology Date/Time Procedure Status Source Growth 09/09/16 09:00 Aerobic Blood Culture - Preliminary Resulted Blood Peripheral NO GROWTH IN 2 DAYS 09/09/16 09:00 Anaerobic Blood Culture - Preliminary Resulted Blood Peripheral NO GROWTH IN 2 DAYS 09/09/16 09:06 Aerobic Blood Culture - Preliminary Resulted Blood Peripheral NO GROWTH IN 2 DAYS 09/09/16 09:06 Anaerobic Blood Culture - Preliminary Resulted Blood Peripheral NO GROWTH IN 2 DAYS Imaging Last Impressions Femur X-Ray 09/08/16 0000 Signed Impressions: Service Date/Time: Thursday, September 08, 2016 19:50 - CONCLUSION: 1. Status post above the knee amputation. 2. Questionable fracture involving the right superior pubic rami. Odin Romero MD Chest X-Ray 09/08/16 0000 Signed Impressions: Service Date/Time: Thursday, September 08, 2016 21:06 - CONCLUSION: No acute disease. Odin Romero MD Abdomen/Pelvis CT 09/08/16 0000 Signed Impressions: Service Date/Time: Thursday, September 08, 2016 21:21 - CONCLUSION: 1. There appears to be a pathologic fracture involving the right pubic symphysis. This needs to be correlated with patient's medical history for cancer. 2. Nondisplaced fracture involving the inferior right pubic ramus. 3. Nondisplaced fractures through the right and left sacrum. These could indicate insufficiency fractures. Efren Milner MD . Assessment and Plan Disease Oriented Problem List: (1) Pathological fracture, pelvis, initial encounter for fracture (2) Sacral fracture (3) Dementia (4) H/O above knee amputation Symptom Scale: (1) Intractable pain 0-10 Scale: Unable to quantify Comment: Patient is unable to quantify pain. Most likely secondary to her pelvic/sacral fractures. had been screaming with movement but appears better controlled with scheduled low dose methadone. . . Pertinent Non-Medical Issues Psychosocial: Patient is . She is a resident (with her of 13 years) at [facility] where they moved in July 2016. Son lives locally ; daughter lives in [place] Spiritual: Patient and her are [employer]. All non jojo- based medical care has been declined up until recently. Legal: Advance directives are scanned into the EMR Ethical issues impacting care: Patient is incapacitated to make her own health care decisions. . Important Contacts * Damian Wyman (son and [facility]) [phone] . 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 Given her jojo beliefs, she is not likely to want aggressive care. If this is cancer, per oncology, she would not be a candidate for chemotherapy and she would not likely benefit from radiation therapy. She is in significant pain with movement and with her dementia she has poor understanding of her predicament. Life expectancy is probably in the order of weeks to months and could be much less if the amount of medicine necessary to address comfort has her eating/ drinking less and more sedated. . Code Status: No Code Plan == Code Status: NO CODE == Decision making: The patient is incapacitated to make her own health care decisions and due to her dementia, is not likely to gain capacity. The most recent health care surrogate designation lists her son, Damian, as the decision maker. There is an older signed power of automobile assembly supervisor document also scanned into the electronic medical record which lists her as the surrogate. It appears there is good communication between family members. Per son, decisions at this time appear to be agreed upon by son, , and daughter. == Goals of medical treatment: Per son, he has spoken with patient's and daughter and all are in agreement with transition to "comfort measures only " and to hospice enrollment. That means no biopsy and no antibiotics. They are OK with comfort medications. They would like care center placement for the pain as the patient's twin sister in [facility]. == Pain: Pain is mostly "incident pain," which occurs primarily with repositioning. As patient is demented and is unable to remember that she has a fracture she often tries to move on her own exacerbating the problem. Family had requested some scheduled medication. She was started on low-dose methadone at 2.5 mg every 12 hours [id number] to give her a small amount of baseline relief. This appears to be helping. Will allo for further titration of pain medications under hospice care. == To assure a good hand-off to hospice, I... * Phoned the referral to [facility] * I met with Dr. Kaur (attending physician) to inform his of the family's decision and plan for hospice enrollment * I personally spoke with the Hospice admissions nurse to let her know about pain issues, [employer] jojo, concern for over-medication, and desire for the [facility]. * I personally spoke with Dr. Painting -- the likely receiving hospice physician -- to inform him of same. . . Time Spent Total Floor Time (mins): 40 (Total floor time included chart review, patient exam, discussion of case with attending (Dr. Kaur), discussion with son regarding goals, phone calls to hospice/hospice nurse/ and Dr. Painting. ) Face to Face Time (mins): 15 >50% Counseling/Coord of Care: Yes Attestation To help prompt me to consider important information that might be impacting today's encounter and assessment, information from prior notes written by myself or my colleagues may have been "brought forward" into today's note. My signature on this note, however, is an attestation that I personally performed the exam, history, and/or decision-making noted today, and, unless otherwise indicated, the interactions with patient, family, and staff as well as the review of records all occurred today. I also attest that the listed assessment and stated plan reflect my best clinical judgment today based on the combination of historical information, prior notes, and today's exam/ interactions. When time spent is documented, it refers only to time spent today by the signer, or if indicated, combined time spent today by collaborating physician/nurse practitioner. . . Camron Alba MD Sep 11, 2016 15:01
[2016-09-11 15:43] VITALS: BP 134/63; PULSE 76; RESP 16; TEMP 97.6; O2SAT 98
[2016-09-11] MEDS ORDERED: PHARMACY ORDERED LAB XX ONE (21:45)
--- NOTE | 2016-09-15 15:21 | MD ---
cc: HENRIETTA LAZCANO ADMISSION DATE: 09/08/2016 DISCHARGE DATE: 09/11/2016 Consultations were with Camron Alba, Henrietta Franco and Josiah Cueto. PROCEDURE Echocardiogram. ADMISSION DIAGNOSIS Intractable abdominal pain. DISCHARGE DIAGNOSIS 1. Right pubic symphysis pathologic fracture. 2. Right pubic ramus fracture. 3. Sacral fractures. 4. Squamous cell cancer of the right lower extremity, status post amputation. 5. Hyponatremia. 6. Dehydration. 7. Hyperglycemia. 8. Elevated CRP. HOSPITAL COURSE Raeann Sahu is an 85-year-old female previously here with osteomyelitis of the right lower extremity due to squamous cell carcinoma with subsequent amputation. She was discharged to the [facility] assisted living facility. She has Alzheimer's and appears that this has progressed and has made her management very difficult. She had intractable pain and x-rays were not fruitful and she was subsequently transferred to [place] and found to have pelvic and sacral fractures. She has been persistently agitated and in severe intractable pain. The son requested hospice. I spoke with Dr. Alba today and he had ordered Hospice for her and were both in to see her today. The son states that he is ready to take her over to the [facility]. PHYSICAL EXAMINATION ON DISCHARGE VITAL SIGNS: Stable. CHEST: Clear. CARDIOVASCULAR: Regular rate and rhythm. ABDOMEN: Soft. Very tender to palpation over the sacral prominences. SKIN: The skin is overall clear. DISPOSITION Discharge to the [facility]. Medications are Colace and will do Hospice admission medications per their attending physician. Prognosis is poor. Henrietta Lazcano MD RP/SHANA /1:36 PM /3:12 PM
== END 2016-09-11 16:34 | disposition hospice, inpatient (51) | DRG 543 ==
LOC: NEPE 16:56 → OBSVTOIN 22:27 → NEDA 22:27 → INTOOBSV 22:27 → NEPGCP 09-09 00:38
PROVIDERS: ADMIT Family Medicine; ATTEND Family Medicine
DX: M84.58XA Pathological fracture in neoplastic disease, other specified site, initial encounter for fracture (principal); E87.1 Hypo-osmolality and hyponatremia; C79.51 Secondary malignant neoplasm of bone; M80.08XA Age-related osteoporosis with current pathological fracture, vertebra(e), initial encounter for fracture; E88.09 Other disorders of plasma-protein metabolism, not elsewhere classified; G30.9 Alzheimer's disease, unspecified; F02.80 Dementia in other diseases classified elsewhere, unspecified severity, without behavioral disturbance, psychotic disturbance, mood disturbance, and anxiety; G62.9 Polyneuropathy, unspecified; E86.0 Dehydration; Z89.611 Acquired absence of right leg above knee; X58.XXXA Exposure to other specified factors, initial encounter; Y93.9 Activity, unspecified; Y92.9 Unspecified place or not applicable; G47.00 Insomnia, unspecified; M85.80 Other specified disorders of bone density and structure, unspecified site; D63.8 Anemia in other chronic diseases classified elsewhere; R79.89 Other specified abnormal findings of blood chemistry; R73.9 Hyperglycemia, unspecified; Z66 Do not resuscitate; Z51.5 Encounter for palliative care; Z85.828 Personal history of other malignant neoplasm of skin; R79.82 Elevated C-reactive protein (CRP)
CPT/HCPCS: 51702; 71010; 73552; 74176; 80048; 80053; 81001; 82550; 85025; 85652; 86140; 87040; 93306; 96365; 96375; C9113; G8987-GP; G8988-GP; J1650; J2270; J2405; J2543; J3370; J7030; J7050